=== PATIENT | female | born 1945 | race Caucasian/White ===

== ENCOUNTER → 2016-11-19 | Outpatient (CLI) | payer OTHER ==
[2016-11-19 16:56] LABS: BASO % 0.3 %; BASO ABS # 0.02 K/uL (0-0.2); COMPLETE YES; EOS % 3.3 %; HEMATOCRIT 39.6 % (37-47); IG% 0.3 %; LYMPH % 16.7 %; LYMPH ABS # 0.96 K/uL (1.2-3.4); MEAN CELL VOLUME 89.2 fL (80-100); MEAN CORPUSCULAR HGB CONC 33.6 g/dl (32-36); MEAN PLATELET VOLUME 11.2 fL (7.4-10.4); MONO % 7.1 %; NEUT % 72.3 %; PLATELET COUNT 251 K/uL (130-400); RED BLOOD COUNT 4.44 M/uL (4.2-5.4); WHITE BLOOD COUNT 5.74 K/uL (4.8-10.8)
[2016-11-19 17:17] LABS: BLOOD UREA NITROGEN 18 mg/dl (7-18); BUN/CREATININE RATIO 21.3 (10-20); CARBON DIOXIDE 25 mmol/L (21-32); CHLORIDE 109 mmol/L (98-107); CHOLESTEROL 194 mg/dl (0-200); CHOLESTEROL/HDL RATIO 2.7; CREATININE 0.85 mg/dl (0.60-1.20); GLUCOSE 92 mg/dl (70-99); HDL CHOLESTEROL 72 mg/dl; MAGNESIUM 2.3 mg/dl (1.8-2.4); POTASSIUM 3.8 mmol/L (3.5-5.1); SODIUM 142 mmol/L (136-145)
[2016-11-19 17:24] LABS: FERRITIN 76.4 ng/ml (8.0-388.0); LDL CHOLESTEROL CALCULATED 103 mg/dl; TOTAL IRON BINDING CAPACITY 308 mcg/dl (250-450); TRIGLYCERIDES 97 mg/dl (0-150); VERY LOW DENSITY LIPOPROT CALC 19 mg/dl
== END | disposition home or self-care (01) ==
LOC: C.LABBC 14:20
PROVIDERS: ATTEND Family Medicine
DX: Z00.00 Encounter for general adult medical examination without abnormal findings (principal); R53.82 Chronic fatigue, unspecified; G25.81 Restless legs syndrome; G43.109 Migraine with aura, not intractable, without status migrainosus; E03.9 Hypothyroidism, unspecified; M81.0 Age-related osteoporosis without current pathological fracture

== ENCOUNTER → 2017-02-02 | Outpatient (CLI) | payer OTHER ==
[2017-02-02 16:25] LABS: THYROID STIMULATING HORMONE 6.55 uIu/ml (0.300-4.500)
[2017-02-04 15:10] LABS: MICROSOMAL AB 2 IU/ML (<9)
== END | disposition home or self-care (01) ==
LOC: C.LAB1850 14:03
PROVIDERS: ATTEND Internal Medicine Endocrinology, Diabetes & Metabolism
DX: E03.9 Hypothyroidism, unspecified (principal)

== ENCOUNTER → 2017-05-20 | Outpatient (CLI) | payer OTHER ==
[2017-05-20 17:11] LABS: THYROID STIMULATING HORMONE 4.84 uIu/ml (0.300-4.500)
== END | disposition home or self-care (01) ==
LOC: C.LABBC 15:12
PROVIDERS: ATTEND Internal Medicine Endocrinology, Diabetes & Metabolism
DX: E03.9 Hypothyroidism, unspecified (principal)

== ENCOUNTER → 2017-10-01 | Outpatient (CLI) | payer OTHER | END | disposition home or self-care (01) | LOC: C.LAB1850 15:21 | PROVIDERS: ATTEND Physician Assistant Medical | DX: J30.9 Allergic rhinitis, unspecified (principal) ==

== ENCOUNTER → 2018-03-18 | Outpatient (CLI) | payer OTHER ==
[2018-03-18 15:38] LABS: BASO ABS # 0.04 K/uL (0-0.2); EOS % 4.3 %; EOS ABS # 0.17 K/uL (0-0.5); HEMATOCRIT 39.8 % (37-47); HEMOGLOBIN 13.2 g/dL (12.0-16.0); LYMPH % 20.4 %; LYMPH ABS # 0.81 K/uL (1.2-3.4); MEAN CELL VOLUME 91.7 fL (80-100); MEAN CORPUSCULAR HEMOGLOBIN 30.4 pg (25-34); MEAN CORPUSCULAR HGB CONC 33.2 g/dl (32-36); MEAN PLATELET VOLUME 10.6 fL (7.4-10.4); MONO % 9.3 %; MONO ABS # 0.37 K/uL (0.11-0.59); NEUT ABS # 2.58 K/uL (1.4-6.5); PLATELET COUNT 224 K/uL (130-400); RED CELL DISTRIBUTION WIDTH CV 13.7 % (11.5-14.5); RED CELL DISTRIBUTION WIDTH SD 45.9 fL (36.4-46.3); WHITE BLOOD COUNT 3.97 K/uL (4.8-10.8)
[2018-03-18 16:06] LABS: ALBUMIN 4.1 gm/dl (3.4-5.0); ALKALINE PHOSPHATASE 88 U/L (45-117); ALT/SGPT 22 U/L (12-78); AST/SGOT 17 U/L (15-37); BLOOD UREA NITROGEN 18 mg/dl (7-18); CALCIUM 8.9 mg/dl (8.5-10.1); CARBON DIOXIDE 28 mmol/L (21-32); CREATININE 0.79 mg/dl (0.60-1.20); GLUCOSE 87 mg/dl (70-99); SODIUM 139 mmol/L (136-145); TOTAL PROTEIN 7.3 gm/dl (6.4-8.2)
== END | disposition home or self-care (01) ==
LOC: C.LAB1850 14:49
PROVIDERS: ATTEND Nurse Practitioner Adult Health
DX: E03.9 Hypothyroidism, unspecified (principal); R53.83 Other fatigue; G47.00 Insomnia, unspecified; Z11.59 Encounter for screening for other viral diseases; M79.7 Fibromyalgia

== ENCOUNTER → 2018-05-13 | Outpatient (CLI) | payer OTHER | END | disposition home or self-care (01) | LOC: C.MAMM 14:58 | PROVIDERS: ATTEND Internal Medicine | DX: M81.0 Age-related osteoporosis without current pathological fracture (principal); M85.88 Other specified disorders of bone density and structure, other site ==

== ENCOUNTER 2023-09-10 20:42 | Inpatient (IN) ==
[2023-09-10] MEDS ORDERED: SODIUM CHLORIDE 0.9% 500 ML IV SCH (21:45)
[2023-09-10 22:32] LABS: Basophils # (auto) 0.03 K/uL (0.00-0.20); Basophils % (auto) 0.5 %; Eosinophils # (auto) 0.04 K/uL (0.00-0.50); Eosinophils % (auto) 0.7 %; Hematocrit (blood only) 38.3 % (37.0-47.0); Hemoglobin 12.7 g/dl (12.0-16.0); Lymphocytes # (auto) 1.09 K/uL (1.20-3.40); Lymphocytes % (auto) 18.7 %; Mean Corpuscular Hemoglobin 29.7 pg (25.0-34.0); Mean Corpuscular Hgb Conc 33.2 g/dL (32.0-36.0); Mean Corpuscular Volume 89.5 fL (80.0-100.0); Mean Platelet Volume 11.7 fL (9.4-12.4); Monocytes # (auto) 0.37 K/uL (0.11-0.59); Monocytes % (auto) 6.3 %; Neutrophils % (auto) 73.8 %; Platelet Count 206 K/uL (130-400); RDW Coefficient of Variation 13.2 % (11.5-14.5); Red Blood Count 4.28 M/uL (4.20-5.40); White Blood Count 5.83 K/ul (4.8-10.8)
[2023-09-10 22:49] LABS: Albumin Level 4.9 gm/dl (3.4-5.0); BUN Creatinine Ratio 22.5 (10-20); Bilirubin,Total 2.5 mg/dl (0.2-1.0); Calcium 10.1 mg/dl (8.6-10.3); Creatinine Clr Calc Pharmacy 49.4 ml/min; Est GFR (African American) 81.8 ml/min; Est GFR (Non-African American) 70.6 ml/min; Globulin 2.5 gm/dl (2.5-4.0); Magnesium 2.3 mg/dl (1.7-2.4); Potassium 3.6 mmol/L (3.5-5.1); Total Protein 7.4 gm/dl (6.0-8.3)
[2023-09-10 22:55] LABS: Troponin I High Sensitivity 4.8 pg/ml (0-14)
[2023-09-10 23:04] LABS: Thyroid Stimulating Hormone 6.659 uIu/ml (0.300-4.500)
[2023-09-10 23:39] LABS: T4 Free Thyroxine 0.98 ng/dl (0.61-1.60)
[2023-09-10 23:53] LABS: Appearance Urine Clear (Clear); Bacteria Urine Automated 2+ (Negative); Bilirubin Urine Negative (Negative); Blood Urine 2+ (Negative); Color Urine Yellow; Glucose Urine UA Negative (Negative); Ketones Urine 2+ (Negative); Leukocyte Esterase Urine Trace (Negative); Nitrite Urine Positive (Negative); Protein Urine Negative (Negative); RBC Urine Automated 0-4 /hpf (0-4); Specific Gravity Urine 1.017 (1.000-1.030); Urobilinogen Urine Negative (Negative); pH Urine 5.5 (4.5-7.5)
[2023-09-11] MEDS ORDERED: cephALEXin 250 MG CAP PO ONE (00:11)
--- NOTE | 2023-09-11 00:43 | Emergency Department Note ---
Impression & Plan Acute alteration in mental status, Acute UTI ED Provider Note CHIEF COMPLAINT: Altered mental status HISTORY OF PRESENT ILLNESS: This 77-year-old female patient past medical history of migraine, gait unsteadiness, UTI presents to the emergency department after being found in the parking lot of her apartment complex, confused. Per nursing report, the patient is living in verbal conditions, hoarding. The office of aging is apparently involved. The patient has no complaints at this time. She states she has been eating and drinking. She is unable to answer questions regarding year and age. She seems to be unable to answer questions about the details of her arrival but does know that she was in an ambulance. Much of the history is obtained per nursing and EMS report. REVIEW OF SYSTEMS: Unreliable for review of systems secondary to the patient's mental status ALLERGIES: see below MEDICATIONS: see below PMH: see below SOCIAL HISTORY: see below DDx: Intracranial hemorrhage, intracranial mass, seizure activity, dementia, UTI, metabolic abnormality, dehydration among others. PHYSICAL EXAM: Vital signs reviewed. General: Well-appearing 77-year-old female, lying in bed on her right side, in no significant distress. HEENT: No scleral icterus, PERRLA, neck supple. Moist mucous membranes Cardiovascular: Regular rate and rhythm, no extra sounds. Pulmonary: Clear to auscultation bilaterally, normal work of breathing. Abdomen: Soft, nontender, nondistended, positive bowel sounds. Musculoskeletal: Atraumatic, no peripheral edema. Neurologic: Patient awake alert and confused to date and age, speech is clear Skin: Warm, dry, no rash EXTERNAL medical records reviewed: PCP note dated 12/04/2021 for general diagnoses, medication management. EMERGENCY DEPARTMENT COURSE/MDM: This patient was evaluated and appeared to be in no distress. Physical examination is consistent with altered mentation as she is pleasantly confused. IV access was obtained and laboratory work was drawn. Head CT was performed and reveals no evidence of acute intracranial process. EKG reveals no evidence of acute ischemia or dysrhythmia, chest x-ray is clear. Laboratory work is fairly reassuring however the UA is indicative of infection. This will be sent for culture. Patient was given Keflex 500 mg by mouth. She was gently hydrated with normal saline solution and due to the altered mentation, UTI, patient has been discussed with hospitalist service for further management. MONITORING: An order for cardiac monitoring was placed and the patient is noted to be in a normal sinus rhythm at 86 beats per minute. RADIOLOGY: Head CT to my interpretation reveals no evidence of acute intracranial abnormality. Otherwise defer to radiology. Chest x-ray to my interpretation reveals no evidence of acute focal lung consolidation or failure, otherwise defer to radiology's over read. EKG: To my interpretation reveals a normal sinus rhythm [address] segments. QTc of 418. No PVC, no PAC. DISPOSITION: Admission Past Med/Surg History Medical History Abnormal EKG History of allergy History of malignant neoplasm of colon Multiple chemical sensitivity syndrome Surgical History S/P tonsillectomy Family History Mother Colon cancer Sister Alzheimer disease Uncle Cardiac disorder Aunt Breast cancer Colon cancer Denies family history of Ovarian cancer Prostate cancer Myocardial infarction Social History Smoking Status: Unknown if ever smoked Hx Alcohol Use: No Hx Substance Use: No Preferred Language: Malawian Communication Ability: Effective Visual Impairment: No Limitations Hearing Ability: Normal [place] Required: No Beliefs That Will Affect Care: None marital status: Single Current Living Situation: Alone current occupational status: retired Feels Safe at Home: Yes Childhood Exposure to Second-Hand Smoke: No Dental Care, Regularly: No Physical Activity Frequency: Daily Seatbelt Use: always Sunscreen Use: No Assistive Devices: None Allergies Allergies Allergy/AdvReac Type Severity Reaction Status Date / Time Sulfa (Sulfonamide Allergy Nausea Verified 12/04/21 14:52 Antibiotics) aspirin AdvReac ANGIOEDEMA Verified 12/04/21 14:52 lamotrigine [From Lamictal] AdvReac Verified 12/04/21 14:52 latex AdvReac red sores Verified 12/04/21 14:52 nickel AdvReac rash Verified 12/04/21 14:52 Home Meds Previous Rx's Medication Instructions Recorded amoxicillin 875 mg tablet 875 mg PO BID #10 tabs 09/14/23 Results & Data (ED) Vital Signs Vital Signs - 24 hr 09/10/23 20:45 09/10/23 21:14 09/10/23 21:37 Temperature 36.6 C Temperature Source Oral Pulse Rate 83 86 Pulse Rate [Apical] Respiratory Rate 20 Respiratory Effort / Characteristics Non-Labored Spontaneous Respiratory Depth Normal Blood Pressure 157/82 H Blood Pressure [Left Arm] Blood Pressure Mean 107 Blood Pressure Mean [Left Arm] Pulse Oximetry 99 Oxygen Delivery Method Room Air Room Air Sepsis Recent Fever Within 48 Hours No Sepsis New/Unexplained Change in Mental Status No Sepsis Action Taken by Nursing No Action Required 09/10/23 21:37 09/10/23 23:00 Temperature Temperature Source Pulse Rate Pulse Rate [Apical] 82 Respiratory Rate 18 Respiratory Effort / Characteristics Respiratory Depth Blood Pressure Blood Pressure [Left Arm] 141/88 H Blood Pressure Mean Blood Pressure Mean [Left Arm] 105 Pulse Oximetry 98 99 Oxygen Delivery Method Room Air Room Air Sepsis Recent Fever Within 48 Hours Sepsis New/Unexplained Change in Mental Status Sepsis Action Taken by [facility] Medications Current Medication List: was personally reviewed by me Laboratory Data Attestation: I reviewed the patient's lab results. 09/14/23 07:03 09/14/23 07:03 Lab Results 09/10/23 09/10/23 Range/Units 22:15 23:29 WBC 5.83 (4.8-10.8) K/ul RBC 4.28 (4.20-5.40) M/uL Hgb 12.7 (12.0-16.0) g/dl Hct 38.3 (37.0-47.0) % MCV 89.5 (80.0-100.0) fL MCH 29.7 (25.0-34.0) pg MCHC 33.2 (32.0-36.0) g/dL RDW Std Deviation 43.0 (36.4-46.3) fL RDW Coeff of Catherine 13.2 (11.5-14.5) % Plt Count 206 (130-400) K/uL MPV 11.7 (9.4-12.4) fL Immature Gran % (Auto) 0.0 % Neut % (Auto) 73.8 % Lymph % (Auto) 18.7 % Converse % (Auto) 6.3 % Eos % (Auto) 0.7 % Baso % (Auto) 0.5 % Neut # (Auto) 4.30 (1.40-6.50) K/uL Lymph # (Auto) 1.09 L (1.20-3.40) K/uL Converse # (Auto) 0.37 (0.11-0.59) K/uL Eos # (Auto) 0.04 (0.00-0.50) K/uL Baso # (Auto) 0.03 (0.00-0.20) K/uL Immature Gran # (Auto) 0.00 L (0.01-0.20) K/uL Sodium 141 (136-145) mmol/L Potassium 3.6 (3.5-5.1) mmol/L Chloride 108 H (98-107) mmol/L Carbon Dioxide 23 (21-32) mmol/L Anion Gap 10 (3-11) BUN 18 (6-23) mg/dl Creatinine 0.80 (0.6-1.2) mg/dl Est Cr Clr Drug Dosing 49.4 ml/min Est GFR ( Amer) 81.8 ml/min Est GFR (Non-Af Amer) 70.6 ml/min BUN/Creatinine Ratio 22.5 H (10-20) Glucose 70 (70-99(Fasting)) mg/dl Calcium 10.1 (8.6-10.3) mg/dl Magnesium 2.3 (1.7-2.4) mg/dl Total Bilirubin 2.5 H (0.2-1.0) mg/dl Direct Bilirubin 0.4 H (0-0.2) mg/dl AST 18 (13-39) U/L ALT 15 (7-52) U/L Alkaline Phosphatase 58 (34-104) U/L Troponin I High Sens 4.8 (0-14) pg/ml Total Protein 7.4 (6.0-8.3) gm/dl Albumin 4.9 (3.4-5.0) gm/dl Globulin 2.5 (2.5-4.0) gm/dl Albumin/Globulin Ratio 2.0 (0.9-2) TSH 6.659 H (0.300-4.500) uIu/ml Free T4 0.98 (0.61-1.60) ng/dl Urine Color Yellow Urine Appearance Clear (Clear) Urine pH 5.5 (4.5-7.5) Ur Specific [place] 1.017 (1.000-1.030) Urine Protein Negative (Negative) Urine Glucose (UA) Negative (Negative) Urine Ketones 2+ H (Negative) Urine Blood 2+ H (Negative) Urine Nitrite Positive A (Negative) Urine Bilirubin Negative (Negative) Urine Urobilinogen Negative (Negative) Ur Leukocyte Esterase Trace H (Negative) Urine WBC (Auto) 5-10 H (0-5) /hpf Urine RBC (Auto) 0-4 (0-4) /hpf U Hyaline Cast (Auto) 1-5 (0-5) /lpf U Epithel Cells (Auto) 10-20 H (0-5) /lpf Urine Bacteria (Auto) 2+ H (Negative) SARS-CoV-2, RNA, NAAT NEGATIVE (NEGATIVE) Administered Medications Discontinued Medications Amoxicillin (Amoxicillin 875 Mg Tab) 875 mg PO BID [facility]; Protocol Stop: 09/19/23 11:59 Last Admin: 09/14/23 12:44 Dose: 875 mg Documented By: CLIFTON Cephalexin HCl (Cephalexin 250 Mg Cap) 500 mg PO NOW ONE Stop: 09/11/23 00:12 Last Admin: 09/11/23 00:17 Dose: 500 mg Documented By: RAUL Cyanocobalamin (Cyanocobalamin (B-12) 100 Mcg Tablet) 100 mcg PO QAM [facility] Stop: 10/11/23 08:59 Last Admin: 09/14/23 08:16 Dose: 100 mcg Documented By: Admin: 09/13/23 08:17 Dose: 100 mcg Documented By: Admin: 09/12/23 08:18 Dose: 100 mcg Documented By: Admin: 09/11/23 08:47 Dose: Not Given Documented By: CAMPOS Dextrose (Dextrose 50% 50 Ml Syringe) 25 - 50 ml IV UD PRN; Protocol PRN Reason: Hypoglycemia Protocol Stop: 10/11/23 08:29 Last Admin: 09/11/23 08:40 Dose: 25 ml Documented By: CAMPOS Enoxaparin Sodium (Enoxaparin Inj 40 Mg/0.4 Ml Syr) [facility] Stop: 10/11/23 08:59 Last Admin: 09/14/23 08:16 Dose: 40 mg Documented By: Admin: 09/13/23 08:16 Dose: Not Given Documented By: Admin: 09/12/23 08:18 Dose: 40 mg Documented By: Admin: 09/11/23 08:44 Dose: 40 mg Documented By: CAMPOS Sodium Chloride (Nss) 500 mls @ 999 mls/hr IV .Q31M SRAVANI Stop: 09/10/23 22:15 Last Infusion: 09/10/23 23:32 Dose: Infused Documented By: Admin: 09/10/23 22:51 Dose: 999 mls/hr Documented By: RAUL Ceftriaxone Sodium (Rocephin) 2,000 mg in 50 mls @ 100 mls/hr IV NOW STA Stop: 09/11/23 02:20 Last Admin: 09/11/23 02:59 Dose: Not Given Documented By: RAUL Lactated Ringer's (Lr) 1,000 mls @ 125 mls/hr IV .Q8H SRAVANI Stop: 09/11/23 11:59 Last Infusion: 09/11/23 12:29 Dose: Infused Documented By: Admin: 09/11/23 04:15 Dose: 125 mls/hr Documented By: RIGOBERTO Influenza Virus Vaccine (Influenza Vaccine High-Dose (Hd-Iiv4) Pf 65+ 0.7ml Syr) 0.7 ml IM .ONCE ONE Stop: 09/11/23 09:01 Last Admin: 09/12/23 07:08 Dose: Not Given Documented By: CLIFTON Ketorolac Tromethamine (Ketorolac Tromethamine 15 Mg/Ml Vial) 15 mg IV NOW ONE Stop: 09/12/23 05:56 Last Admin: 09/12/23 05:58 Dose: 15 mg Documented By: EJ Magnesium Oxide (Magnesium Oxide 400 Mg Tab) 400 mg PO BID SRAVANI Stop: 10/11/23 10:59 Last Admin: 09/14/23 08:16 Dose: 400 mg Documented By: Admin: 09/13/23 19:26 Dose: 400 mg Documented By: Admin: 09/13/23 08:17 Dose: 400 mg Documented By: Admin: 09/12/23 19:32 Dose: 400 mg Documented By: Admin: 09/12/23 08:17 Dose: 400 mg Documented By: Admin: 09/11/23 20:22 Dose: 400 mg Documented By: Admin: 09/11/23 11:25 Dose: 400 mg Documented By: CAMPOS Ondansetron HCl (Ondansetron Inj 2 Mg/Ml 2 Ml Vial) 4 mg IV Q6H PRN PRN Reason: Nausea And Vomiting Stop: 10/12/23 06:08 Last Admin: 09/12/23 06:23 Dose: 4 mg Documented By: EJ Pneumococcal 20-Valent Conj Vacc (Pneumococcal Vaccine (Pcv20) 20-Petrona Conj-Dip Crm/Pf 0.5 Ml Syr) 0.5 ml IM .ONCE ONE Stop: 09/11/23 09:01 Last Admin: 09/12/23 07:08 Dose: Not Given Documented By: CLIFTON Thiamine HCl (Thiamine Hcl 50 Mg Tablet) 50 mg PO QAM SRAVANI Stop: 10/11/23 08:59 Last Admin: 09/14/23 08:16 Dose: 50 mg Documented By: Admin: 09/13/23 08:17 Dose: 50 mg Documented By: Admin: 09/12/23 08:18 Dose: 50 mg Documented By: Admin: 09/11/23 08:48 Dose: Not Given Documented By: CAMPOS Imaging Data Radiologist's Impression: Chest X-Ray 09/10/23 21:33 XR chest 1V portable HISTORY: weakness COMPARISON: None. FINDINGS: No pneumothorax. No pleural effusions. No focal lung consolidations to suggest a pneumonia. No evidence for pulmonary edema. The heart is normal in size. No acute fractures identified. Degenerative changes within the right shoulder and old posttraumatic changes within the right humeral neck. IMPRESSION: No acute process. ACT 112: Negative or not required by law. Electronically signed by: Micheal Garcia M.D. 09/11/2023 7:[address] 09/10/23 21:33 Exam(s): CT HEAD Without Contrast EXAM: CT Head Without Intravenous Contrast CLINICAL HISTORY: Reason for exam: confusion. TECHNIQUE: Axial computed tomography images of the head/brain without intravenous contrast. CTDI is 36.43 mGy and DLP is 547.75 mGy-cm. Automated exposure control was utilized for the study. A dose lowering technique was utilized adhering to the principles of ALARA. COMPARISON: Comparison made to prior brain MRI from February 01, 2008. FINDINGS: Brain: Unremarkable. No hemorrhage. No significant white matter disease. No edema. Ventricles: Unremarkable. No ventriculomegaly. Bones/joints: Hyperostosis frontalis interna. No acute fracture. Soft tissues: Unremarkable. Sinuses: Unremarkable as visualized. No acute sinusitis. Mastoid air cells: Unremarkable as visualized. No mastoid effusion. IMPRESSION: No evidence of acute intracranial pathology. Electronically signed by: Julianna Palma MD 09/11/23 01:46 AM Discharge Plan Visit Data Chief Complaint: Altered Mental Status Stated Complaint: WANDERING AROUND, ALTERED ED Provider: Marleny Menjivar Discharge Problem: Acute alteration in mental status, Acute UTI Patient Disposition: Admitted As Inpatient Discharge Instructions Interventions: ED Discharge Assessment Last Done: 09/11/23 03:21
--- NOTE | 2023-09-11 01:47 | CT Scan Report ---
Exam(s): CT HEAD Without Contrast EXAM: CT Head Without Intravenous Contrast CLINICAL HISTORY: Reason for exam: confusion. TECHNIQUE: Axial computed tomography images of the head/brain without intravenous contrast. CTDI is 36.43 mGy and DLP is 547.75 mGy-cm. Automated exposure control was utilized for the study. A dose lowering technique was utilized adhering to the principles of ALARA. COMPARISON: Comparison made to prior brain MRI from February 01, 2008. FINDINGS: Brain: Unremarkable. No hemorrhage. No significant white matter disease. No edema. Ventricles: Unremarkable. No ventriculomegaly. Bones/joints: Hyperostosis frontalis interna. No acute fracture. Soft tissues: Unremarkable. Sinuses: Unremarkable as visualized. No acute sinusitis. Mastoid air cells: Unremarkable as visualized. No mastoid effusion. IMPRESSION: No evidence of acute intracranial pathology. Electronically signed by: Julianna Palma MD 09/11/23 01:46 AM
[2023-09-11] MEDS ORDERED: cefTRIAXone SODIUM 2,000 MG/50 ML BAG IV STA (01:51)
--- NOTE | 2023-09-11 02:01 | History & Physical Report ---
Date of Service September 11, 2023 Assessment & Plan (1) Altered mental status: Plan: 77 F with PMH of hypothyroidism (unmedicated), migraine headaches, chronic pain, fibromyalgia, and UTIs, who presented to hospital after being found outside in confused state. Stable and now admitted to the hospital for acute management of delirium, presumed secondary to urinary tract infection. Altered mental status/UTI -No prior history of delirium, dementia, or AMS. Patient did have a sister (now ) with a history of Alzheimer's disease, according to the chart. Otherwise no family history of neurological disorders. -Urinalysis findings consistent with acute UTI (2+ hematuria, 2+ ketonuria, nitrite positive, trace leukocyte esterase, 2+ bacteriuria). -Electrolytes wnl. WBC, Mg, Ca, glucose, ammonia, alk phos, troponin, Cr, BUN all normal. CXR, CT head both negative for acute pathology. -S/p p.o. cephalexin 500 mg, NS bolus x0.5 L in the ED. * [facility] * Started IV ceftriaxone * Started maintenance IVF (LR@125 mL/h x 1 L) * P.o. thiamine 50 mg, cyanocobalamin 100 mg every morning * Trend improvement in mental status with antibiotic treatment * Recommend contacting the Office of Aging for additional information Elevated total bilirubin -T. bili-2.5 on admission. Last and only other value, obtained in 2018, mildly elevated at 1.2. -Direct bilirubin 0.4. * Trend T. bili on daily LFTs Hypothyroidism -TSH 6.659 on ED labs. Most recent prior value on 04/25/2020 wnl (3.790). -Appears to have been unmedicated, according to last wellness visit note from 12/04/2021 ("appears to be doing well without medication."). -Free T4 of 0.98 today. No evidence of weight loss upon review of prior visit weights (54 kg today; other prior weights between 52-59.5 kg). * Recheck thyroid function test x6-8 weeks. Code: Full code Dispo: Med-Surg FEN/GI: NPO. DVT Prophylaxis: Lovenox 40 mg q24h PT/OT: Yes Consults: None Case Management: Yes (2) UTI (urinary tract infection): (3) Total bilirubin, elevated: (4) Hypothyroidism: History of Present Illness Primary Care Provider: Lou Lopez MD Rita is a 77-year-old woman with a past medical history of hypothyroidism, IBS, fibromyalgia, migraine headaches, allergic rhinitis, chronic fatigue, and UTIs, who presents to the emergency room after being found in a confused state outside her apartment complex in the parking lot. Per nursing report, patient apparently lives as a hoarder, and the Office of Aging is apparently involved. She had no complaints on evaluation by the ED. In the ED, vitals were stable, wnl. Labs revealed an elevated total bilirubin of 2.5, and an elevated TSH-6.659 (free T4 was normal-0.98). WBC count, Hgb, sodium, K+, BUN, Cr, Ca, Mg, AST/ALT, alkaline phosphatase, troponin, and serum glucose were all within normal ranges. Urinalysis, however, showed 2+ ketonuria, 2+ hematuria, positive nitrites, trace leuk est. and 2+ bacteriuria. COVID-19 swab was also negative. CXR was negative for any acute infectious or inflammatory process. CT head was also negative for intracranial pathology. She received a dose of p.o. cephalexin 500 mg and a 0.5 L bolus of NS. Hospitalist service was then consulted for admission. On admission, she remains oriented to only herself and knows her , but is not oriented to date or location. She reports that she was sleeping in bed when she saw other dogs or wolves in her backyard, as well as people napping amongst them in the backyard. She does not remember being found in the parking lot nor does she remember ever going outside. She seems to remember she last had a cookie, but does not know for sure when she last ate. She is unable to answer when asked who the current president is or the last president she can remember ("he has a daughter and 2 boys. He was a [employer]."). She does deny any alcohol consumption ("I never like to drink."). Allergies Allergy/AdvReac Type Severity Reaction Status Date / Time Sulfa (Sulfonamide Allergy Nausea Verified 12/04/21 14:52 Antibiotics) aspirin AdvReac ANGIOEDEMA Verified 12/04/21 14:52 lamotrigine [From Lamictal] AdvReac Verified 12/04/21 14:52 latex AdvReac red sores Verified 12/04/21 14:52 nickel AdvReac rash Verified 12/04/21 14:52 Home Medications Medication Instructions Recorded Confirmed Type Unobtainable 09/10/23 09/10/23 History Past Med/Surg History Medical History Abnormal EKG History of allergy History of malignant neoplasm of colon Multiple chemical sensitivity syndrome Surgical History S/P tonsillectomy Family History Mother Colon cancer Sister Alzheimer disease Uncle Cardiac disorder Aunt Breast cancer Colon cancer Denies family history of Ovarian cancer Prostate cancer Myocardial infarction Social History Smoking Status: Never smoker Hx Alcohol Use: No Hx Substance Use: No Preferred Language: Uzbek Visual Impairment: No Limitations Hearing Ability: Normal marital status: Single Current Living Situation: Alone current occupational status: retired Feels Safe at Home: No Childhood Exposure to Second-Hand Smoke: No Dental Care, Regularly: No Physical Activity Frequency: Daily Seatbelt Use: always Sunscreen Use: No Review of Systems Review of Systems: All systems reviewed & are unremarkable except as noted in HPI & below Physical Exam Physical Exam: General: Calm, but tired appearing elderly woman in no acute distress HEENT: PERRLA. Normal conjunctiva, anicteric sclera. Oropharynx normal. Respiratory: Normal respiratory effort, CTABL. Cardiovascular: RRR without murmurs, gallops, or rubs. No pedal edema. GI: Soft abdomen with normal bowel sounds heard on auscultation. Nontender x4 quadrants Neuro: Alert but oriented to self only. Intact pupillary light reflex bilaterally. No apparent focal motor deficits. Results & Data Results & Data Vital Signs (Past 12 Hours) Vital Signs Temp Pulse Pulse Resp BP BP Pulse Ox 09/11/23 00:49 71 09/10/23 23:00 82 18 141/88 H 99 09/10/23 21:37 98 09/10/23 21:37 09/10/23 21:14 86 09/10/23 20:45 36.6 C 83 20 157/82 H 99 O2 Del Method 09/11/23 00:49 09/10/23 23:00 Room Air 09/10/23 21:37 Room Air 09/10/23 21:37 Room Air 09/10/23 21:14 09/10/23 20:45 Room Air Supervising Physician Co-Signing Physician Notes Patient seen and examined, chart reviewed, case discussed with Dr. Reeves and I agree with the assessment and plan as above. Resident Activity Tracking Resident Involvement: Resident Care Provided Care Provided: Adult Hospital Medicine (1) Altered mental status Altered mental status type: delirium Qualified Code(s): R41.0 - Disorientation, unspecified
[2023-09-11 02:36] LABS: Bilirubin Direct 0.4 mg/dl (0-0.2)
--- NOTE | 2023-09-11 03:22 | Billing Data ---
Date of Service September 11, 2023 Coding Level of Care Code 22984 INT INP/OBS CARE
[2023-09-11] MEDS ORDERED: LACTATED RINGER'S 1,000 ML IV SCH (04:00)
--- NOTE | 2023-09-11 07:39 | XRay Report ---
XR chest 1V portable HISTORY: weakness COMPARISON: None. FINDINGS: No pneumothorax. No pleural effusions. No focal lung consolidations to suggest a pneumonia. No evidence for pulmonary edema. The heart is normal in size. No acute fractures identified. Degener ative changes within the right shoulder and old posttraumatic changes within the right humeral neck. IMPRESSION: No acute process. ACT 112: Negative or not required by law. Electronically signed by: Micheal Garcia M.D. 09/11/2023 7:38 AM
[2023-09-11 07:56] LABS: BUN Creatinine Ratio 21.3 (10-20); Bilirubin Direct 0.3 mg/dl (0-0.2); Bilirubin,Total 2.1 mg/dl (0.2-1.0); Calcium 9.2 mg/dl (8.6-10.3); Creatinine Clr Calc Pharmacy 50.9 ml/min; Est GFR (African American) 88.5 ml/min; Est GFR (Non-African American) 76.3 ml/min; Potassium 3.7 mmol/L (3.5-5.1); Total Protein 5.9 gm/dl (6.0-8.3)
[2023-09-11] MEDS ORDERED: GLUCOSE 10 TAB/TUBE PO PRN (08:30)
[2023-09-11] MEDS ORDERED: DEXTROSE 50% 50 ML SYRINGE IV PRN (08:30)
[2023-09-11] MEDS ORDERED: GLUCAGON FOR INJ 1 MG VIAL SQ PRN (08:30)
[2023-09-11] MEDS ORDERED: GLUCOSE 40% GEL 15 GM TUBE PO PRN (08:30)
[2023-09-11] MEDS ORDERED: CARBOHYDRATES FOR HYPOGLYCEMIA PO PRN (08:30)
[2023-09-11] MEDS: ENOXAPARIN INJ 40 MG/0.4 ML SYR SQ SCH (08:44)
[2023-09-11] MEDS: CYANOCOBALAMIN (B-12) 100 MCG TABLET PO SCH (08:47)
[2023-09-11] MEDS: THIAMINE HCL 50 MG TABLET PO SCH (08:48)
--- NOTE | 2023-09-11 08:58 | Electrocardiogram Report ---
Test Reason : Blood Pressure : / mmHG Vent. Rate : 076 BPM Atrial Rate : 076 BPM P-R Int : 150 ms QRS Dur : 062 ms QT Int : 372 ms P-R-T Axes : 072 031 051 degrees QTc Int : 418 ms Normal sinus rhythm Normal ECG When compared with ECG of 01-MAR-2004 12:15, No significant change was found Confirmed by Israel Tsang ([id number]) on 09/11/2023 8:58:22 AM Referred By: REFERRED SELF Confirmed By:Israel Tsang
[2023-09-11] MEDS ORDERED: INFLUENZA VACCINE HIGH-DOSE (HD-IIV4) PF 65+ 0.7mL SYR IM ONE (09:00)
[2023-09-11] MEDS ORDERED: PNEUMOCOCCAL VACCINE (PCV20) 20-VAL CONJ-DIP CRM/PF 0.5 ML SYR IM ONE (09:00)
[2023-09-11] MEDS ORDERED: ACETAMINOPHEN 325 MG TAB PO PRN (10:49)
[2023-09-11] MEDS: MAGNESIUM OXIDE 400 MG TAB PO SCH ×2 (11:25→20:22)
[2023-09-12] MEDS ORDERED: KETOROLAC TROMETHAMINE 15 MG/ML VIAL IV ONE (05:55)
[2023-09-12] MEDS ORDERED: ONDANSETRON INJ 2 MG/ML 2 ML VIAL IV PRN (06:09)
[2023-09-12 06:11] LABS: Hematocrit (blood only) 38.1 % (37.0-47.0); Hemoglobin 12.4 g/dl (12.0-16.0); Mean Corpuscular Hemoglobin 29.5 pg (25.0-34.0); Mean Corpuscular Hgb Conc 32.5 g/dL (32.0-36.0); Mean Corpuscular Volume 90.7 fL (80.0-100.0); Mean Platelet Volume 11.5 fL (9.4-12.4); Platelet Count 178 K/uL (130-400); RDW Standard Deviation 42.6 fL (36.4-46.3); White Blood Count 4.17 K/ul (4.8-10.8)
[2023-09-12 06:27] LABS: Albumin Level 4.3 gm/dl (3.4-5.0); Bilirubin Direct 0.3 mg/dl (0-0.2); Bilirubin,Total 2.2 mg/dl (0.2-1.0); Calcium 9.6 mg/dl (8.6-10.3); Potassium 3.7 mmol/L (3.5-5.1)
[2023-09-12 06:33] LABS: BUN Creatinine Ratio 19.8 (10-20); Creatinine Clr Calc Pharmacy 44.4 ml/min; Est GFR (Non-African American) 64.7 ml/min; Phosphorus 3.2 mg/dl (2.5-4.9); Total Protein 6.4 gm/dl (6.0-8.3)
[2023-09-12] MEDS: MAGNESIUM OXIDE 400 MG TAB PO SCH ×2 (08:17→19:32)
[2023-09-12] MEDS: CYANOCOBALAMIN (B-12) 100 MCG TABLET PO SCH (08:18)
[2023-09-12] MEDS: ENOXAPARIN INJ 40 MG/0.4 ML SYR SQ SCH (08:18)
[2023-09-12] MEDS: THIAMINE HCL 50 MG TABLET PO SCH (08:18)
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
[2023-09-13 05:56] LABS: Hematocrit (blood only) 35.8 % (37.0-47.0); Mean Corpuscular Hemoglobin 29.7 pg (25.0-34.0); Mean Corpuscular Hgb Conc 33.5 g/dL (32.0-36.0); Mean Corpuscular Volume 88.6 fL (80.0-100.0); Mean Platelet Volume 11.6 fL (9.4-12.4); Platelet Count 182 K/uL (130-400); RDW Coefficient of Variation 13.2 % (11.5-14.5); RDW Standard Deviation 42.6 fL (36.4-46.3); Red Blood Count 4.04 M/uL (4.20-5.40); White Blood Count 4.42 K/ul (4.8-10.8)
[2023-09-13 06:11] LABS: Albumin Level 4.1 gm/dl (3.4-5.0); BUN Creatinine Ratio 27.4 (10-20); Bilirubin Direct 0.2 mg/dl (0-0.2); Bilirubin,Total 1.4 mg/dl (0.2-1.0); Calcium 9.6 mg/dl (8.6-10.3); Creatinine Clr Calc Pharmacy 40.2 ml/min; Est GFR (African American) 66.5 ml/min; Est GFR (Non-African American) 57.4 ml/min; Phosphorus 3.5 mg/dl (2.5-4.9); Potassium 4.3 mmol/L (3.5-5.1); Total Protein 6.1 gm/dl (6.0-8.3)
[2023-09-13] MEDS: ENOXAPARIN INJ 40 MG/0.4 ML SYR SQ SCH (08:16)
[2023-09-13] MEDS: MAGNESIUM OXIDE 400 MG TAB PO SCH ×2 (08:17→19:26)
[2023-09-13] MEDS: THIAMINE HCL 50 MG TABLET PO SCH (08:17)
[2023-09-13] MEDS: CYANOCOBALAMIN (B-12) 100 MCG TABLET PO SCH (08:17)
--- NOTE | 2023-09-13 15:08 | Hospitalist Progress Note ---
Date of Service September 13, 2023 Assessment & Plan (1) Altered mental status: Plan: 77 F with PMH of hypothyroidism (unmedicated), migraine headaches, chronic pain, fibromyalgia, and UTIs, who presented to hospital after being found outside in confused state. Stable and now admitted to the hospital for acute management of delirium, presumed secondary to urinary tract infection. Altered mental status/UTI -No prior history of delirium, dementia, or AMS. Patient did have a sister (now ) with a history of Alzheimer's disease, according to the chart. Otherwise no family history of neurological disorders. -Urinalysis findings consistent with acute UTI (2+ hematuria, 2+ ketonuria, nitrite positive, trace leukocyte esterase, 2+ bacteriuria). -Electrolytes wnl. WBC, Mg, Ca, glucose, ammonia, alk phos, troponin, Cr, BUN all normal. CXR, CT head both negative for acute pathology. -S/p p.o. cephalexin 500 mg, NS bolus x0.5 L in the ED. * Admit to [facility] * Started IV ceftriaxone * Started maintenance IVF (LR@125 mL/h x 1 L) * P.o. thiamine 50 mg, cyanocobalamin 100 mg every morning * Patient appears to be improving in regards to her mentation. * There may be a component of dementia * However, Mini mental State Examination completed on 09/13: scored 26/30 * Did not answer day of the week, could not remember 1 out the 3 words, could not draw the diagram, did not know the name of the hospital. Elevated total bilirubin -T. bili-2.5 on admission. Last and only other value, obtained in 2018, mildly elevated at 1.2. -Direct bilirubin 0.4. * Trend T. bili on daily LFTs Hypothyroidism -Free T4 appears at goal. (2) UTI (urinary tract infection): (3) Total bilirubin, elevated: (4) Hypothyroidism: Admission and Anticipated Discharge Date Admission Date: September 11, 2023 Subjective 77 y female reports no new Symptoms Review of Systems Review of Systems: All systems reviewed & are unremarkable except as noted in HPI & below Physical Exam Physical Exam: General: Calm and in NAD/ HEENT: PERRLA. Normal conjunctiva, anicteric sclera. Oropharynx normal. Respiratory: Normal respiratory effort, CTABL. Cardiovascular: RRR without murmurs, gallops, or rubs. No pedal edema. GI: Soft abdomen with normal bowel sounds heard on auscultation. Nontender x4 quadrants Neuro: Alert but oriented to self, place. Results & Data Results & Data Vital Signs (Past 12 Hours) Vital Signs Temp Pulse Resp BP Pulse Ox O2 Del Method 09/13/23 14:46 36.9 C 75 18 112/74 98 Room Air 09/13/23 07:43 36.4 C L 57 L 18 112/73 98 Room Air PG Care Time/CCT Total # of Minutes Spent Total Time Spent with Patient: Total time spent is greater than 50% in coordination of care (as documented) at patient's floor/unit and/or counseling patient: Coding Level of Care Code 87242 SUB INP/OBS CARE 235MIN Diagnoses Delirium R41.0 Altered mental status type: delirium UTI (urinary tract infection) N39.0 Total bilirubin, elevated R17 Hypothyroidism E03.9 (1) Altered mental status Altered mental status type: delirium Qualified Code(s): R41.0 - Disorientation, unspecified
[2023-09-14 07:26] LABS: Hematocrit (blood only) 36.1 % (37.0-47.0); Mean Corpuscular Hemoglobin 29.9 pg (25.0-34.0); Mean Corpuscular Hgb Conc 33.2 g/dL (32.0-36.0); Mean Corpuscular Volume 89.8 fL (80.0-100.0); Mean Platelet Volume 11.8 fL (9.4-12.4); Platelet Count 190 K/uL (130-400); RDW Coefficient of Variation 13.1 % (11.5-14.5); RDW Standard Deviation 43.3 fL (36.4-46.3); Red Blood Count 4.02 M/uL (4.20-5.40); White Blood Count 4.49 K/ul (4.8-10.8)
[2023-09-14 07:41] VITALS: RESP 20
[2023-09-14 08:02] LABS: Phosphorus 3.7 mg/dl (2.5-4.9)
[2023-09-14] MEDS: THIAMINE HCL 50 MG TABLET PO SCH (08:16)
[2023-09-14] MEDS: CYANOCOBALAMIN (B-12) 100 MCG TABLET PO SCH (08:16)
[2023-09-14] MEDS: MAGNESIUM OXIDE 400 MG TAB PO SCH (08:16)
[2023-09-14] MEDS: ENOXAPARIN INJ 40 MG/0.4 ML SYR SQ SCH (08:16)
[2023-09-14 09:54] LABS: Albumin Level 4.3 gm/dl (3.4-5.0); Bilirubin Direct 0.2 mg/dl (0-0.2); Bilirubin,Total 1.3 mg/dl (0.2-1.0); Calcium 9.6 mg/dl (8.6-10.3); Potassium 3.9 mmol/L (3.5-5.1)
[2023-09-14 09:59] LABS: BUN Creatinine Ratio 22.1 (10-20); Creatinine Clr Calc Pharmacy 49.6 ml/min; Est GFR (African American) 85.7 ml/min; Total Protein 6.3 gm/dl (6.0-8.3)
[2023-09-14 11:20] VITALS: PULSE 78; TEMP 97.7; O2SAT 99
[2023-09-14] MEDS ORDERED: AMOXICILLIN 875 MG TAB PO SCH (12:00)
[2023-09-14 14:04] LABS: Lyme Ab IgG w/WB Rflx Negative (Negative)
[2023-09-14 14:05] LABS: Lyme Ab IgM w/WB Rflx Negative (Negative)
[2023-09-14 14:06] VITALS: BP 113/84
--- NOTE | 2023-09-18 09:38 | Discharge Summary ---
Date of Service September 14, 2023 Admission HPI Per Admitting Provider Rita is a 77-year-old woman with a past medical history of hypothyroidism, IBS, fibromyalgia, migraine headaches, allergic rhinitis, chronic fatigue, and UTIs, who presents to the emergency room after being found in a confused state outside her apartment complex in the parking lot. Per nursing report, patient apparently lives as a hoarder, and the Office of Aging is apparently involved. She had no complaints on evaluation by the ED. In the ED, vitals were stable, wnl. Labs revealed an elevated total bilirubin of 2.5, and an elevated TSH-6.659 (free T4 was normal-0.98). WBC count, Hgb, sodium, K+, BUN, Cr, Ca, Mg, AST/ALT, alkaline phosphatase, troponin, and serum glucose were all within normal ranges. Urinalysis, however, showed 2+ ketonuria, 2+ hematuria, positive nitrites, trace leuk est. and 2+ bacteriuria. COVID-19 swab was also negative. CXR was negative for any acute infectious or inflammatory process. CT head was also negative for intracranial pathology. She received a dose of p.o. cephalexin 500 mg and a 0.5 L bolus of NS. Hospitalist service was then consulted for admission. On admission, she remains oriented to only herself and knows her , but is not oriented to date or location. She reports that she was sleeping in bed when she saw other dogs or wolves in her backyard, as well as people napping amongst them in the backyard. She does not remember being found in the parking lot nor does she remember ever going outside. She seems to remember she last had a cookie, but does not know for sure when she last ate. She is unable to answer when asked who the current president is or the last president she can remember ("he has a daughter and 2 boys. He was a [employer]."). She does deny any alcohol consumption ("I never like to drink."). Principal Diagnosis acute mental status Discharge Exam General: Calm and in NAD HEENT: PERRLA. Normal conjunctiva, anicteric sclera. Oropharynx normal. Respiratory: Normal respiratory effort, CTABL. Cardiovascular: RRR without murmurs, gallops, or rubs. No pedal edema. GI: Soft abdomen with normal bowel sounds heard on auscultation. Nontender x4 quadrants Neuro: Alert, oriented to self, place, time. Discharge Data Allergies Allergy/AdvReac Type Severity Reaction Status Date / Time Sulfa (Sulfonamide Allergy Nausea Verified 12/04/21 14:52 Antibiotics) aspirin AdvReac ANGIOEDEMA Verified 12/04/21 14:52 lamotrigine [From Lamictal] AdvReac Verified 12/04/21 14:52 latex AdvReac red sores Verified 12/04/21 14:52 nickel AdvReac rash Verified 12/04/21 14:52 Consultations 09/11/23 00:41 ED Decision to Admit Stat Ordered Studies 09/10/23 21:33 CT head/brain wo con Stat Hospital Course (1) Altered mental status: 77 F with PMH of hypothyroidism (unmedicated), migraine headaches, chronic pain, fibromyalgia, and UTIs, who presented to hospital after being found outside in confused state. Stable and now admitted to the hospital for acute management of delirium, presumed secondary to urinary tract infection. Altered mental status/UTI -No prior history of delirium, dementia, or AMS. Patient did have a sister (now ) with a history of Alzheimer's disease, according to the chart. Otherwise no family history of neurological disorders. -Urinalysis findings consistent with acute UTI (2+ hematuria, 2+ ketonuria, nitrite positive, trace leukocyte esterase, 2+ bacteriuria). -Electrolytes wnl. WBC, Mg, Ca, glucose, ammonia, alk phos, troponin, Cr, BUN all normal. CXR, CT head both negative for acute pathology. -S/p p.o. cephalexin 500 mg, NS bolus x0.5 L in the ED. * Admit to [facility] * Started IV ceftriaxone, on admission, but not continued. * Patient appears to be improving in regards to her mentation. * There may be a component of dementia * However, Mini mental State Examination completed on 09/13: scored 26/30 * Did not answer day of the week, could not remember 1 out the 3 words, could not draw the diagram, did not know the name of the hospital. * Patient will be discharged home with home health, office of aging has also been contacted. * A cousin will also be visiting patient, * Patient will be discharged on oral antibiotics for possible UTI vs asymptomatic bacteruria. Elevated total bilirubin -T. bili-2.5 on admission. Last and only other value, obtained in 2018, mildly elevated at 1.2. -Direct bilirubin 0.4. * Trend T. bili on daily LFTs Hypothyroidism -Free T4 appears at goal. (2) UTI (urinary tract infection): (3) Total bilirubin, elevated: (4) Hypothyroidism: Total Time Total Time Spent Total Time Spent (In Minutes): 32 Discharge Plan Discharge Items Patient Disposition: Home - Home Health Services Reason For Visit: ALTERED MENTAL STATUS Discharge Diagnosis: Confusion/ possble early dementia Activity: Resume your previous activity Non-emergency contact: Primary Care Provider Call non-emergency contact if: you have any medication questions Follow-up/Referrals: Lou Lopez MD [Primary Care Provider] - 09/22/23 11:30 am (with saumya the PA) Diet: Regular Addtl Attending Provider Instructions: Good afternoon Mrs. Yañez, It was a pleasure taking care of you as you are a very pleasant and cheerful young lady. I have some concerns regarding your memory but I would consdier this early dementia. However first we need to treat things that could affect you usch as your Urinary tract infection. Will recommend 5 days of oral antibiotics. Home First dose will be tonight. We sent your script to [facility]. [facility], [address] [place] [address] If your memory does not improve after treating your urine infection, we could consider starting aricept. This is a medication that can help with memory. Will also recommend we check an MRI of your brain as an outpatient. We will have you followup with Neurology and your PCP within 2-4 weeks. I hope you have a Happy Thanksgiving. Kindest regards, Rayo Marr MD Pending Studies at Discharge: No Stand-Alone Forms: [facility], Smoking Cessation Medications and DC Order Prescriptions: New amoxicillin 875 mg tablet 875 mg PO BID Qty: 10 0RF Discharge Orders: Discharge Order (Routine); Ordered 09/14/23 Ordered By: Rayo Marr Admission Data Admit Date/Time: 09/11/23 01:22 Attending Provider: Rayo Mrar Admit Provider: Ingrid Reeves Primary Care Provider: Lou Lopez V. Other Providers: Ana Luisa Villar Other Interventions: Discharge Summary Assessment (RN) Last Done: 09/14/23 14:03 Coding Level of Care Code 97388 INP/OBS DISCH >30 MIN Diagnoses Delirium R41.0 Altered mental status type: delirium UTI (urinary tract infection) N39.0 Total bilirubin, elevated R17 Hypothyroidism E03.9
== END 2023-09-14 15:06 | disposition home health service (06) | DRG 689 ==
LOC: ED 20:42 → SUATTDRO 09-11 01:22 → 2S 09-11 01:22 → 3N 09-11 16:26
DX: E86.0 Dehydration; Z91.040 Latex allergy status; G93.41 Metabolic encephalopathy; Z87.440 Personal history of urinary (tract) infections; Z88.2 Allergy status to sulfonamides; R79.89 Other specified abnormal findings of blood chemistry; N39.0 Urinary tract infection, site not specified; Z88.6 Allergy status to analgesic agent; F03.A2 Unspecified dementia, mild, with psychotic disturbance; E03.9 Hypothyroidism, unspecified; K58.9 Irritable bowel syndrome, unspecified; M79.7 Fibromyalgia

== ENCOUNTER 2023-09-24 11:49 | Inpatient (IN) ==
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
[2023-09-24] MEDS: ACETAMINOPHEN 500 MG TAB PO STA (13:30)
--- NOTE | 2023-09-24 14:14 | XRay Report ---
XR chest 1V portable HISTORY: 77 years-old Female weakness acute weakness COMPARISON: 09/10/2023 TECHNIQUE: AP view of the chest FINDINGS: Cardiac mediastinal and hilar silhouettes are within normal limits. No pneumothorax, pleural effusion or airspace consolidation. Bones appear grossly intact. IMPRESSION: No acute process. ACT 112: Negative or not required by law. The above report was generated using voice recognition software. It may contain grammatical, syntax o r spelling errors. Electronically signed by: Abdias Holland M.D. 09/24/2023 2:13 PM
[2023-09-24] MEDS: cefTRIAXone SODIUM 2,000 MG/50 ML BAG IV STA (14:16)
--- NOTE | 2023-09-24 14:21 | CT Scan Report ---
CT head/brain wo con CLINICAL HISTORY: 77 years-old Female with head pain. Acute headache TECHNIQUE: Multiple axial CT images of the head were obtained without contrast. A dose lowering tech nique was utilized adhering to the principles of ALARA. COMPARISON: Head CT 09/10/2023 FINDINGS: No acute intracranial hemorrhage, midline shift, intracranial mass, hydrocephalus, territorial ischem ia or abnormal extra-axial collection. Involutional changes with probable chronic microvascular ische julia disease. The calvarium is intact. The paranasal sinuses, mastoid air cells, and middle ear cavities are clear . IMPRESSION: No acute intracranial abnormality. ACT 112: Negative or not required by law. The above report was generated using voice recognition software. It may contain grammatical, syntax o r spelling errors. Electronically signed by: Abdias Holland M.D. 09/24/2023 2:19 PM
[2023-09-24 14:29] LABS: Albumin Level 4.9 gm/dl (3.4-5.0); BUN Creatinine Ratio 20.9 (10-20); Bilirubin,Total 1.7 mg/dl (0.2-1.0); Calcium 9.9 mg/dl (8.6-10.3); Creatinine Clr Calc Pharmacy 44.6 ml/min; Est GFR (Non-African American) 64.7 ml/min; Globulin 2.5 gm/dl (2.5-4.0); Magnesium 2.3 mg/dl (1.7-2.4); Potassium 4.4 mmol/L (3.5-5.1); Total Protein 7.4 gm/dl (6.0-8.3)
[2023-09-24 14:40] LABS: Acetaminophen 20 ug/ml (10-30); Salicylate < 3.0 mg/dl (3.0-30)
[2023-09-24 14:44] LABS: Thyroid Stimulating Hormone 2.489 uIu/ml (0.300-4.500)
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
[2023-09-24 14:51] LABS: Basophils # (auto) 0.03 K/uL (0.00-0.20); Basophils % (auto) 0.6 %; Eosinophils # (auto) 0.12 K/uL (0.00-0.50); Eosinophils % (auto) 2.2 %; Hematocrit (blood only) 43.3 % (37.0-47.0); Hemoglobin 13.6 g/dl (12.0-16.0); Immature Granulocytes # (auto) 0.02 K/uL (0.01-0.20); Immature Granulocytes % (auto) 0.4 %; Lymphocytes # (auto) 1.06 K/uL (1.20-3.40); Lymphocytes % (auto) 19.7 %; Mean Corpuscular Hemoglobin 29.7 pg (25.0-34.0); Mean Corpuscular Hgb Conc 31.4 g/dL (32.0-36.0); Mean Corpuscular Volume 94.5 fL (80.0-100.0); Monocytes # (auto) 0.36 K/uL (0.11-0.59); Monocytes % (auto) 6.7 %; Neutrophils # (auto) 3.78 K/uL (1.40-6.50); Neutrophils % (auto) 70.4 %; RDW Coefficient of Variation 13.9 % (11.5-14.5); RDW Standard Deviation 47.8 fL (36.4-46.3); Red Blood Count 4.58 M/uL (4.20-5.40); White Blood Count 5.37 K/ul (4.8-10.8)
[2023-09-24 14:53] LABS: Ovalocytes 2+; Platelet Estimate Normal (Normal)
[2023-09-24 14:56] LABS: Appearance Urine Cloudy (Clear); Bacteria Urine Automated 4+ (Negative); Bilirubin Urine Negative (Negative); Blood Urine Negative (Negative); Color Urine Yellow; Glucose Urine UA Negative (Negative); Ketones Urine Negative (Negative); Leukocyte Esterase Urine 1+ (Negative); Nitrite Urine Positive (Negative); Protein Urine Negative (Negative); RBC Urine Automated 0-4 /hpf (0-4); Specific Gravity Urine 1.027 (1.000-1.030); Urobilinogen Urine Negative (Negative); WBC Urine Automated >30 /hpf (0-5)
[2023-09-24 15:22] LABS: Amphetamines+Metham, Urine Neg (Neg); Barbiturates, Urine Neg (Neg); Benzodiazepine, Urine Neg (Neg); Cocaine, Urine Neg (Neg); MDMA (Ecstacy), Urine Neg (Neg); Marijuana, Urine Neg (Neg); Methadone, Urine Neg (Neg); Opiate, Urine Neg (Neg); Phencyclidine, Urine Neg (Neg)
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
[2023-09-24] MEDS: PLASMA-LYTE A 500 ML IV ONE (16:52)
[2023-09-25 08:31] LABS: Basophils # (auto) 0.03 K/uL (0.00-0.20); Basophils % (auto) 0.7 %; Eosinophils # (auto) 0.14 K/uL (0.00-0.50); Eosinophils % (auto) 3.4 %; Hematocrit (blood only) 37.1 % (37.0-47.0); Immature Granulocytes # (auto) 0.01 K/uL (0.01-0.20); Immature Granulocytes % (auto) 0.2 %; Lymphocytes # (auto) 1.03 K/uL (1.20-3.40); Lymphocytes % (auto) 25.2 %; Mean Corpuscular Hgb Conc 32.3 g/dL (32.0-36.0); Mean Corpuscular Volume 92.8 fL (80.0-100.0); Mean Platelet Volume 11.8 fL (9.4-12.4); Monocytes # (auto) 0.32 K/uL (0.11-0.59); Monocytes % (auto) 7.8 %; Neutrophils # (auto) 2.55 K/uL (1.40-6.50); Neutrophils % (auto) 62.7 %; Platelet Count 214 K/uL (130-400); RDW Coefficient of Variation 13.6 % (11.5-14.5); RDW Standard Deviation 46.5 fL (36.4-46.3); White Blood Count 4.08 K/ul (4.8-10.8)
[2023-09-25 08:47] LABS: BUN Creatinine Ratio 24.6 (10-20); Calcium 9.2 mg/dl (8.6-10.3); Creatinine Clr Calc Pharmacy 55.6 ml/min; Est GFR (African American) 96.6 ml/min; Est GFR (Non-African American) 83.4 ml/min; Magnesium 2.2 mg/dl (1.7-2.4); Potassium 3.9 mmol/L (3.5-5.1)
[2023-09-25] MEDS: ONDANSETRON INJ 2 MG/ML 2 ML VIAL IV PRN (14:21)
[2023-09-25] MEDS: cefTRIAXone SODIUM 2,000 MG in DEXTROSE 5 % MINI-B 50 ML IV SCH (14:22)
--- NOTE | 2023-09-25 14:27 | Electrocardiogram Report ---
Test Reason : Blood Pressure : / mmHG Vent. Rate : 070 BPM Atrial Rate : 070 BPM P-R Int : 142 ms QRS Dur : 056 ms QT Int : 398 ms P-R-T Axes : 071 059 055 degrees QTc Int : 429 ms Normal sinus rhythm Confirmed by Derek Guzman ([id number]) on 09/25/2023 2:27:22 PM Referred By: REFERRED SELF Confirmed By:Jamir Guzman
--- NOTE | 2023-09-25 22:59 | Hospitalist Progress Note ---
Date of Service September 25, 2023 Assessment & Plan (1) Acute alteration in mental status: Plan: -Admit to med/surge -Currently stable _Delirium vs possible dementia. -Patient with visual hallcnations at home. Will treat UTI with rocephin. -And monitor for possible improvement. If no improvement, will consider treating for dementia. -Patient is not safe to be discharged home as she cannot take care of herself. (2) Acute UTI: Plan: -Was diagnosed with pansensitive UTI on last admission -Was treated with Ceftriaxone while admitted but never picked up amoxicillin after discharge -UA appears infected again today, received one dose of Ceftriaxone in the ED -Continue ceftriaxone for now -Will give 500 mL Normosol on admission for mild dehydration -Follow urine culture (3) Total bilirubin, elevated: Plan: -Total bili elevated at 1.7 today -Other LFT's are WNL -Patient denies abd pain -Appears to be elevated frequently in the past -For now will hydrate and continue to monitor on daily CMP (4) Hypothyroidism: Plan: -Currently off levothyroxine -TSH today is stable, continue to monitor Admission and Anticipated Discharge Date Admission Date: September 24, 2023 Subjective 77 yo female reports no new symptoms. Review of Systems Review of Systems: All systems reviewed & are unremarkable except as noted in HPI & below Physical Exam Physical Exam: General: In no acute distress, stated age, malnourished, non-toxic appearing HEENT: Normocephalic, atraumatic, no scleral icterus, pupils around round, symmetrical, and reactive to light, dry mucus membranes, trachea midline, no thyromegaly Chest/Pulm: No respiratory distress, symmetrical chest expansion, clear breath sounds throughout Cardiac: RRR, no murmurs noted Abdomen: Negative for ascites and bruising, normoactive bowel sounds, soft, non-tender to palpation throughout Musculoskeletal: Symmetrical and without signs of acute trauma, upper and lower extremities with full ROM, no atrophy, spasticity, or flaccidity Extremities: Radial, dorsalis pedis, and posterior tibial pulses are intact and symmetrical, no edema noted in the BL LE's Skin: Warm, dry, no rashes , lesions, or scars noted Neuro: Alert and oriented to person and place Results & Data Results & Data Vital Signs (Past 12 Hours) Vital Signs Temp Pulse Resp BP Pulse Ox O2 Del Method 09/25/23 20:50 36.7 C 85 16 119/66 98 Room Air 09/25/23 14:37 36.7 C 73 16 105/68 97 Room Air PG Care Time/CCT Total # of Minutes Spent Total Time Spent with Patient: Total time spent is greater than 50% in coordination of care (as documented) at patient's floor/unit and/or counseling patient: Coding Level of Care Code 19335 SUB INP/OBS CARE 2/35MIN Diagnoses Acute alteration in mental status R41.82 Acute UTI N39.0 Total bilirubin, elevated R17 Hypothyroidism E03.9
[2023-09-26 06:32] LABS: Basophils # (auto) 0.04 K/uL (0.00-0.20); Basophils % (auto) 0.8 %; Eosinophils # (auto) 0.12 K/uL (0.00-0.50); Eosinophils % (auto) 2.3 %; Hematocrit (blood only) 37.9 % (37.0-47.0); Hemoglobin 12.7 g/dl (12.0-16.0); Immature Granulocytes # (auto) 0.01 K/uL (0.01-0.20); Immature Granulocytes % (auto) 0.2 %; Lymphocytes # (auto) 1.15 K/uL (1.20-3.40); Lymphocytes % (auto) 21.9 %; Mean Corpuscular Hemoglobin 30.2 pg (25.0-34.0); Mean Corpuscular Hgb Conc 33.5 g/dL (32.0-36.0); Mean Platelet Volume 11.6 fL (9.4-12.4); Monocytes % (auto) 7.6 %; Neutrophils # (auto) 3.53 K/uL (1.40-6.50); Neutrophils % (auto) 67.2 %; Platelet Count 252 K/uL (130-400); RDW Coefficient of Variation 13.7 % (11.5-14.5); RDW Standard Deviation 44.9 fL (36.4-46.3); Red Blood Count 4.21 M/uL (4.20-5.40); White Blood Count 5.25 K/ul (4.8-10.8)
[2023-09-26 06:33] LABS: BUN Creatinine Ratio 26.4 (10-20); Calcium 9.4 mg/dl (8.6-10.3); Creatinine Clr Calc Pharmacy 44.1 ml/min; Est GFR (Non-African American) 63.8 ml/min; Magnesium 2.1 mg/dl (1.7-2.4); Potassium 3.5 mmol/L (3.5-5.1)
[2023-09-26] MEDS: OLANZapine 10 MG/2.1 ML SDV IM STA (07:17)
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
[2023-09-26] MEDS: INFLUENZA VACCINE HIGH-DOSE (HD-IIV4) PF 65+ 0.7mL SYR IM ONE (14:33)
[2023-09-26] MEDS: PNEUMOCOCCAL VACCINE (PCV20) 20-VAL CONJ-DIP CRM/PF 0.5 ML SYR IM ONE (14:33)
[2023-09-27 07:35] LABS: Basophils # (auto) 0.05 K/uL (0.00-0.20); Basophils % (auto) 1.1 %; Eosinophils # (auto) 0.23 K/uL (0.00-0.50); Eosinophils % (auto) 4.9 %; Hematocrit (blood only) 38.5 % (37.0-47.0); Hemoglobin 12.7 g/dl (12.0-16.0); Immature Granulocytes # (auto) 0.01 K/uL (0.01-0.20); Immature Granulocytes % (auto) 0.2 %; Lymphocytes # (auto) 1.39 K/uL (1.20-3.40); Lymphocytes % (auto) 29.6 %; Mean Corpuscular Hemoglobin 30.1 pg (25.0-34.0); Mean Corpuscular Volume 91.2 fL (80.0-100.0); Mean Platelet Volume 11.5 fL (9.4-12.4); Monocytes # (auto) 0.49 K/uL (0.11-0.59); Monocytes % (auto) 10.4 %; Neutrophils # (auto) 2.53 K/uL (1.40-6.50); Neutrophils % (auto) 53.8 %; Platelet Count 243 K/uL (130-400); RDW Coefficient of Variation 13.8 % (11.5-14.5); RDW Standard Deviation 46.5 fL (36.4-46.3); Red Blood Count 4.22 M/uL (4.20-5.40)
[2023-09-27 08:08] LABS: Albumin Level 4.2 gm/dl (3.4-5.0); Bilirubin,Total 1.2 mg/dl (0.2-1.0); Calcium 9.1 mg/dl (8.6-10.3); Magnesium 2.1 mg/dl (1.7-2.4); Potassium 3.9 mmol/L (3.5-5.1)
[2023-09-27 08:14] LABS: BUN Creatinine Ratio 30.1 (10-20); Creatinine Clr Calc Pharmacy 46.2 ml/min; Est GFR (African American) 78.3 ml/min; Est GFR (Non-African American) 67.5 ml/min; Globulin 2.1 gm/dl (2.5-4.0); Total Protein 6.3 gm/dl (6.0-8.3)
--- NOTE | 2023-09-27 16:55 | Hospitalist Progress Note ---
Date of Service September 27, 2023 Assessment & Plan (1) Acute alteration in mental status: Plan: -Admit to med/surge -Currently stable -Possible acute metabolic encephalopathy _Delirium vs possible dementia. Patient continues douglas confused. -Patient with visual hallcnations at home. Will treat UTI with rocephin. -And monitor for possible improvement. If no improvement, will consider treating for dementia. -Patient is not safe to be discharged home as she cannot take care of herself. May consider adding aricpet. continue above plan (2) Acute UTI: Plan: -Was diagnosed with pansensitive UTI on last admission -Was treated with Ceftriaxone while admitted but never picked up amoxicillin after discharge -UA appears infected again today, received one dose of Ceftriaxone in the ED -Continue ceftriaxone for now -Will give 500 mL Normosol on admission for mild dehydration -Follow urine culture (3) Total bilirubin, elevated: Plan: -Total bili elevated at 1.7 today -Other LFT's are WNL -Patient denies abd pain -Appears to be elevated frequently in the past -For now will hydrate and continue to monitor on daily CMP (4) Hypothyroidism: Plan: -Currently off levothyroxine -TSH today is stable, continue to monitor Admission and Anticipated Discharge Date Admission Date: September 24, 2023 Subjective 77 yo female reports no new symptoms. Review of Systems Review of Systems: All systems reviewed & are unremarkable except as noted in HPI & below Physical Exam Physical Exam: General: In no acute distress, stated age, malnourished, non-toxic appearing HEENT: Normocephalic, atraumatic Neuro: Alert and oriented to person and place Results & Data Results & Data Vital Signs (Past 12 Hours) Vital Signs Temp Pulse Resp BP Pulse Ox O2 Del Method 09/27/23 14:33 36.6 C 96 H 16 97/67 L 100 Room Air PG Care Time/CCT Total # of Minutes Spent Total Time Spent with Patient: Total time spent is greater than 50% in coordination of care (as documented) at patient's floor/unit and/or counseling patient: Coding Level of Care Code 08108 SUB INP/OBS CARE 2/35MIN Diagnoses Acute alteration in mental status R41.82 Acute UTI N39.0 Total bilirubin, elevated R17 Hypothyroidism E03.9
[2023-09-28 07:45] LABS: Basophils # (auto) 0.08 K/uL (0.00-0.20); Basophils % (auto) 1.5 %; Eosinophils % (auto) 3.8 %; Hematocrit (blood only) 38.8 % (37.0-47.0); Hemoglobin 12.7 g/dl (12.0-16.0); Immature Granulocytes # (auto) 0.01 K/uL (0.01-0.20); Immature Granulocytes % (auto) 0.2 %; Lymphocytes # (auto) 1.79 K/uL (1.20-3.40); Lymphocytes % (auto) 33.9 %; Mean Corpuscular Hgb Conc 32.7 g/dL (32.0-36.0); Mean Corpuscular Volume 91.7 fL (80.0-100.0); Mean Platelet Volume 11.4 fL (9.4-12.4); Monocytes # (auto) 0.43 K/uL (0.11-0.59); Monocytes % (auto) 8.1 %; Neutrophils # (auto) 2.77 K/uL (1.40-6.50); Neutrophils % (auto) 52.5 %; Platelet Count 269 K/uL (130-400); RDW Coefficient of Variation 13.5 % (11.5-14.5); Red Blood Count 4.23 M/uL (4.20-5.40); White Blood Count 5.28 K/ul (4.8-10.8)
[2023-09-28 08:05] LABS: Albumin Globulin Ratio 1.9 (0.9-2); Albumin Level 4.2 gm/dl (3.4-5.0); BUN Creatinine Ratio 21.2 (10-20); Calcium 9.6 mg/dl (8.6-10.3); Creatinine Clr Calc Pharmacy 38.7 ml/min; Est GFR (African American) 63.3 ml/min; Est GFR (Non-African American) 54.6 ml/min; Globulin 2.2 gm/dl (2.5-4.0); Magnesium 2.2 mg/dl (1.7-2.4); Potassium 3.8 mmol/L (3.5-5.1); Total Protein 6.4 gm/dl (6.0-8.3)
[2023-09-28 08:19] LABS: Thyroid Stimulating Hormone 2.82 uIu/ml (0.300-4.500)
--- NOTE | 2023-09-28 22:12 | Hospitalist Progress Note ---
Date of Service September 28, 2023 Assessment & Plan (1) Acute alteration in mental status: Plan: -Admit to med/surge -Currently stable -Possible acute metabolic encephalopathy _Delirium vs possible dementia. Patient continues douglas confused. -Patient with visual hallcnations at home. Will treat UTI with rocephin. -And monitor for possible improvement. If no improvement, will consider treating for dementia. -Patient is not safe to be discharged home as she cannot take care of herself. May consider adding aricpet. continue above plan. If no improvement, will consider consulting psych, neuro. (2) Acute UTI: Plan: -Was diagnosed with pansensitive UTI on last admission -Was treated with Ceftriaxone while admitted but never picked up amoxicillin after discharge -UA appears infected again today, received one dose of Ceftriaxone in the ED -Continue ceftriaxone for now -Will give 500 mL Normosol on admission for mild dehydration -Follow urine culture (3) Total bilirubin, elevated: Plan: -Total bili elevated at 1.7 today -Other LFT's are WNL -Patient denies abd pain -Appears to be elevated frequently in the past -For now will hydrate and continue to monitor on daily CMP (4) Hypothyroidism: Plan: -Currently off levothyroxine -TSH today is stable, continue to monitor Admission and Anticipated Discharge Date Admission Date: September 24, 2023 Subjective Patient reports no new symptoms. Review of Systems Review of Systems: All systems reviewed & are unremarkable except as noted in HPI & below Physical Exam Physical Exam: General: In no acute distress, stated age, malnourished, non-toxic appearing HEENT: Normocephalic, atraumatic Neuro: Alert and oriented to person and place Results & Data Results & Data Vital Signs (Past 12 Hours) Vital Signs Temp Pulse Resp BP Pulse Ox O2 Del Method 09/28/23 19:38 36.6 C 80 18 100/66 96 Room Air 09/28/23 15:39 36.8 C 76 18 100/61 97 Room Air PG Care Time/CCT Total # of Minutes Spent Total Time Spent with Patient: Total time spent is greater than 50% in coordination of care (as documented) at patient's floor/unit and/or counseling patient: Coding Level of Care Code 14225 SUB INP/OBS CARE 2/35MIN Diagnoses Acute alteration in mental status R41.82 Acute UTI N39.0 Total bilirubin, elevated R17 Hypothyroidism E03.9
[2023-09-29 07:09] LABS: Basophils # (auto) 0.04 K/uL (0.00-0.20); Basophils % (auto) 0.7 %; Eosinophils # (auto) 0.19 K/uL (0.00-0.50); Eosinophils % (auto) 3.3 %; Hematocrit (blood only) 38.1 % (37.0-47.0); Hemoglobin 12.5 g/dl (12.0-16.0); Immature Granulocytes # (auto) 0.01 K/uL (0.01-0.20); Immature Granulocytes % (auto) 0.2 %; Lymphocytes # (auto) 1.35 K/uL (1.20-3.40); Lymphocytes % (auto) 23.8 %; Mean Corpuscular Hgb Conc 32.8 g/dL (32.0-36.0); Mean Corpuscular Volume 91.4 fL (80.0-100.0); Mean Platelet Volume 11.5 fL (9.4-12.4); Monocytes # (auto) 0.52 K/uL (0.11-0.59); Monocytes % (auto) 9.2 %; Neutrophils # (auto) 3.57 K/uL (1.40-6.50); Neutrophils % (auto) 62.8 %; Platelet Count 263 K/uL (130-400); RDW Coefficient of Variation 13.2 % (11.5-14.5); RDW Standard Deviation 44.6 fL (36.4-46.3); Red Blood Count 4.17 M/uL (4.20-5.40); White Blood Count 5.68 K/ul (4.8-10.8)
[2023-09-29 07:29] LABS: BUN Creatinine Ratio 21.3 (10-20); Calcium 9.8 mg/dl (8.6-10.3); Creatinine Clr Calc Pharmacy 47.9 ml/min; Est GFR (African American) 81.8 ml/min; Est GFR (Non-African American) 70.6 ml/min; Magnesium 2.1 mg/dl (1.7-2.4); Potassium 3.7 mmol/L (3.5-5.1)
--- NOTE | 2023-09-29 08:55 | Hospitalist Progress Note ---
Date of Service September 29, 2023 Assessment & Plan (1) Acute alteration in mental status: Plan: -Admit to med/surge -Currently stable -Possible acute metabolic encephalopathy -Delirium vs possible dementia. Patient showing signs of dementia. COnsulted Neuro: agrees with adding aricpet, though do not anctipate this will provoke a quick or significant turnaround Patient does not meet have ca[acity at this time. -Patient with visual hallcnations at home, will also consult psych. Treated for possible UTI with 5 days of rocephin. -Patient is not safe to be discharged home as she cannot take care of herself. continue above plan. * Mini mental State Examination completed on 09/13: scored /30 * Did not answer day of the week, could not remember 1 out the 3 words, could not draw the diagram, did not know the name of the hospital. (2) Acute UTI: Plan: -Was diagnosed with pansensitive UTI on last admission -Was treated with Ceftriaxone while admitted but never picked up amoxicillin after discharge -UA appears infected again today, received one dose of Ceftriaxone in the ED -Treated with 5 days of rocephin (3) Total bilirubin, elevated: Plan: -Total bili elevated at 1.7 today -Other LFT's are WNL -Patient denies abd pain -Appears to be elevated frequently in the past -For now will hydrate and continue to monitor on daily CMP (4) Hypothyroidism: Plan: -Currently off levothyroxine -TSH today is stable, continue to monitor Admission and Anticipated Discharge Date Admission Date: September 24, 2023 Subjective Patient continues to be a poor historian. Unable to recall her age, believes it is 75. She was wandering the halls as per nursing. Review of Systems Review of Systems: All systems reviewed & are unremarkable except as noted in HPI & below Physical Exam Physical Exam: General: In no acute distress, stated age, malnourished, non-toxic appearing HEENT: Normocephalic, atraumatic Neuro: Alert and oriented to person and place Results & Data Results & Data Vital Signs (Past 12 Hours) Vital Signs Temp Pulse Resp BP Pulse Ox O2 Del Method 09/29/23 07:17 36.6 C 69 16 107/67 97 Room Air PG Care Time/CCT Total # of Minutes Spent Total Time Spent with Patient: Total time spent is greater than 50% in coordination of care (as documented) at patient's floor/unit and/or counseling patient: Coding Level of Care Code 09824 SUB INP/OBS CARE 2/35MIN Diagnoses Acute alteration in mental status R41.82 Acute UTI N39.0 Total bilirubin, elevated R17 Hypothyroidism E03.9
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
[2023-09-29] MEDS: DONEPEZIL HCL 5 MG TAB PO SCH (20:15)
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
--- NOTE | 2023-09-30 22:15 | Hospitalist Progress Note ---
Date of Service September 30, 2023 Assessment & Plan (1) Acute alteration in mental status: Plan: -Admit to med/surge -Currently stable -Possible acute metabolic encephalopathy -Delirium vs possible dementia. Patient showing signs of dementia. COnsulted Neuro: agrees with adding aricpet, though do not anctipate this will provoke a quick or significant turnaround Patient does not meet have capacity at this time, and cannot care for herself at home. -Patient with visual hallcnations at home, will also consult psych. Treated for possible UTI with 5 days of rocephin. Patient remains confused whcih was expected. Appreciate input from Neuro. -Patient is not safe to be discharged home as she cannot take care of herself. continue above plan. * Mini mental State Examination completed on 09/13: scored * Did not answer day of the week, could not remember 1 out the 3 words, could not draw the diagram, did not know the name of the hospital. (2) Acute UTI: Plan: -Was diagnosed with pansensitive UTI on last admission -Was treated with Ceftriaxone while admitted but never picked up amoxicillin after discharge -UA appears infected again today, received one dose of Ceftriaxone in the ED -Treated with 5 days of rocephin (3) Total bilirubin, elevated: Plan: -Total bili elevated at 1.7 today -Other LFT's are WNL -Patient denies abd pain -Appears to be elevated frequently in the past -For now will hydrate and continue to monitor on daily CMP (4) Hypothyroidism: Plan: -Currently off levothyroxine -TSH today is stable, continue to monitor Admission and Anticipated Discharge Date Admission Date: September 24, 2023 Subjective Patient is calm reading a book; no new symptoms. Review of Systems Review of Systems: All systems reviewed & are unremarkable except as noted in HPI & below Physical Exam Physical Exam: General: In no acute distress, stated age, malnourished, non-toxic appearing HEENT: Normocephalic, atraumatic Neuro: Alert and oriented to person and place Results & Data Results & Data Vital Signs (Past 12 Hours) Vital Signs Temp Pulse Resp BP BP Pulse Ox O2 Del Method 09/30/23 21:35 36.3 C L 105 H 18 115/75 95 Room Air 09/30/23 15:23 36.7 C 100 H 16 131/90 98 Room Air PG Care Time/CCT Total # of Minutes Spent Total Time Spent with Patient: Total time spent is greater than 50% in coordination of care (as documented) at patient's floor/unit and/or counseling patient: Coding Level of Care Code 35504 SUB INP/OBS CARE 2/35MIN Diagnoses Acute alteration in mental status R41.82 Acute UTI N39.0 Total bilirubin, elevated R17 Hypothyroidism E03.9
--- NOTE | 2023-10-01 15:27 | Hospitalist Progress Note ---
Date of Service October 01, 2023 Assessment & Plan (1) Acute alteration in mental status: Plan: Baseline dementia and disorientation. There may have been an component of acute metabolic encephalopathy on admission. UTI has been treated. Supportive care (2) Acute UTI: Plan: Present on admission. She has been treated with 5 days of parenteral Rocephin. No further treatment at this time. (3) Total bilirubin, elevated: Plan: Appears to be chronic. Other liver enzymes are within normal limits. No intervention necessary at this time. (4) Hypothyroidism: Plan: Currently off levothyroxine. TSH is normal. Free T4 level pending Plan Placement proceedings underway. Family members are being petitioned to assume POA duties. Admission and Anticipated Discharge Date Admission Date: September 24, 2023 Subjective Alert and pleasant. Case management entry noted. Family members are being petitioned to assume POA responsibilities. Placement proceedings are underway Review of Systems 2 Review of Systems: The patient is unable to accurately respond to any questions regarding review of systems Physical Exam 2 Physical Exam: General-alert but demented and disoriented. Pleasant however. HEENT-head atraumatic and normocephalic, pupils equal and reactive to light, extraocular muscles intact Neck-no lymphadenopathy or thyromegaly, trachea midline Chest-clear to auscultation percussion. No rales, wheezing or rhonchi Cardiac-regular rate and rhythm, normal S1 and S2 Abdomen-normal bowel sounds, nontender, no hepatosplenomegaly Extremities-no cyanosis, clubbing, or edema Neuro-cranial nerves II through XII intact, motor and sensory function within normal limits, strength symmetrical, no focal deficits Psych-normal affect, normal mood. Baseline dementia and disorientation Results & Data Results & Data Vital Signs (Past 12 Hours) Vital Signs Temp Pulse Resp BP Pulse Ox O2 Del Method 10/01/23 14:47 36.8 C 76 18 100/64 99 Room Air 10/01/23 10:27 36.4 C L 67 16 103/70 99 Room Air Laboratory Results 09/29/23 06:17 09/29/23 06:17 PG Care Time/CCT Total # of Minutes Spent Total Time Spent with Patient: Total time spent is greater than 50% in coordination of care (as documented) at patient's floor/unit and/or counseling patient: Coding Level of Care Code 37333 SUB INP/OBS CARE 3/50MIN Diagnoses Acute alteration in mental status R41.82 Acute UTI N39.0 Total bilirubin, elevated R17 Hypothyroidism E03.9
[2023-10-02] MEDS: OLANZapine 10 MG/2.1 ML SDV IM STA (07:13)
--- NOTE | 2023-10-02 15:41 | Hospitalist Progress Note ---
Date of Service October 02, 2023 Assessment & Plan (1) Acute alteration in mental status: Plan: Baseline dementia and disorientation. There may have been an component of acute metabolic encephalopathy on admission. UTI has been treated. Supportive care (2) Acute UTI: Plan: Present on admission. Now resolved. She has been treated with 5 days of parenteral Rocephin. No further treatment at this time. (3) Total bilirubin, elevated: Plan: Appears to be chronic. Other liver enzymes are within normal limits. No intervention necessary at this time. (4) Hypothyroidism: Plan: Currently off levothyroxine. TSH is normal. Free T4 level pending Plan Placement proceedings underway. Family members are being petitioned to assume POA duties. Admission and Anticipated Discharge Date Admission Date: September 24, 2023 Subjective Alert. Pleasant. No acute distress. No new problems. Review of Systems 2 Review of Systems: The patient is unable to accurately respond to any questions regarding review of systems Physical Exam 2 Physical Exam: General-alert but demented and disoriented. Pleasant however. HEENT-head atraumatic and normocephalic, pupils equal and reactive to light, extraocular muscles intact Neck-no lymphadenopathy or thyromegaly, trachea midline Chest-clear to auscultation percussion. No rales, wheezing or rhonchi Cardiac-regular rate and rhythm, normal S1 and S2 Abdomen-normal bowel sounds, nontender, no hepatosplenomegaly Extremities-no cyanosis, clubbing, or edema Neuro-cranial nerves II through XII intact, motor and sensory function within normal limits, strength symmetrical, no focal deficits Psych-normal affect, normal mood. Baseline dementia and disorientation Results & Data Results & Data Laboratory Results 09/29/23 06:17 09/29/23 06:17 PG Care Time/CCT Total # of Minutes Spent Total Time Spent with Patient: Total time spent is greater than 50% in coordination of care (as documented) at patient's floor/unit and/or counseling patient: Coding Level of Care Code 00999 SUB INP/OBS CARE 2/35MIN Diagnoses Acute alteration in mental status R41.82 Acute UTI N39.0 Total bilirubin, elevated R17 Hypothyroidism E03.9
--- NOTE | 2023-10-03 10:07 | Hospitalist Progress Note ---
Date of Service October 03, 2023 Assessment & Plan (1) Acute alteration in mental status: Plan: Baseline dementia and disorientation. There may have been an component of acute metabolic encephalopathy on admission. UTI has been treated. Supportive care (2) Acute UTI: Plan: Present on admission. Now resolved. She has been treated with 5 days of parenteral Rocephin. No further treatment at this time. (3) Total bilirubin, elevated: Plan: Appears to be chronic. Other liver enzymes are within normal limits. No intervention necessary at this time. (4) Hypothyroidism: Plan: Currently off levothyroxine. TSH is normal. Free T4 level pending Plan Placement proceedings underway. Family members are being petitioned to assume POA duties. Admission and Anticipated Discharge Date Admission Date: September 24, 2023 Subjective patient is alert she is not oriented that she is tangential in her thinking. She is complacent and staying until we receive appropriate placement however she at times wants to go home but then cannot deliver details on how to get her home or who care for her at that site. Otherwise she is in no distress Physical Exam Physical Exam: pleasant sitting in street clothes no active distress cardiac exam is regular lungs are clear abdomen NABS extremities are without edema Results & Data Results & Data Vital Signs (Past 12 Hours) Vital Signs Temp Pulse Resp BP Pulse Ox O2 Del Method 10/03/23 07:31 Room Air 10/03/23 06:31 97.7 F 76 16 121/76 98 Room Air PG Care Time/CCT Total # of Minutes Spent Total Time Spent with Patient: Total time spent is greater than 50% in coordination of care (as documented) at patient's floor/unit and/or counseling patient: Coding Level of Care Code 78690 SUB INP/OBS CARE 1/25MIN Diagnoses Acute alteration in mental status R41.82 Acute UTI N39.0 Total bilirubin, elevated R17 Hypothyroidism E03.9
[2023-10-03] MEDS: MELATONIN 3 MG TAB PO PRN (22:10)
[2023-10-04] MEDS: ACETAMINOPHEN 325 MG TAB PO PRN (10:08)
--- NOTE | 2023-10-04 18:16 | Hospitalist Progress Note ---
Date of Service October 04, 2023 Assessment & Plan (1) Acute alteration in mental status: Plan: Baseline dementia and disorientation. acute metabolic encephalopathy on admission secondary to UTI s/p treatment treated with 5 days of parenteral Rocephin Supportive care (2) Total bilirubin, elevated: Plan: resolved (3) Hypothyroidism: Plan: Currently off levothyroxine. TSH is normal. Free T4 level normal Plan Placement proceedings underway. Family members are being petitioned to assume POA duties. placement is challenging Admission and Anticipated Discharge Date Admission Date: September 24, 2023 Subjective patient is alert she is not oriented she is still not having lucid thought, initially requesting a shower now refused She is complacent and staying until we receive appropriate placement Physical Exam Physical Exam: pleasant sleeping in her street clothes no active distress cardiac exam is regular lungs are clear abdomen NABS extremities are without edema Results & Data Results & Data Vital Signs (Past 12 Hours) Vital Signs Temp Pulse BP Pulse Ox O2 Del Method 10/04/23 09:11 97.5 F L 83 149/83 H 97 Room Air PG Care Time/CCT Total # of Minutes Spent Total Time Spent with Patient: Total time spent is greater than 50% in coordination of care (as documented) at patient's floor/unit and/or counseling patient: Coding Level of Care Code 69093 SUB INP/OBS CARE 1/25MIN Diagnoses Acute alteration in mental status R41.82 Total bilirubin, elevated R17 Hypothyroidism E03.9
--- NOTE | 2023-10-05 16:43 | Hospitalist Progress Note ---
Date of Service October 05, 2023 Assessment & Plan (1) Acute alteration in mental status: Plan: Baseline dementia and disorientation. acute metabolic encephalopathy on admission secondary to UTI s/p treatment completed 5 days of parenteral Rocephin continue Supportive care (2) Total bilirubin, elevated: Plan: resolved (3) Hypothyroidism: Plan: Currently off levothyroxine. TSH is normal. Free T4 level normal Plan Placement proceedings underway. Family members are being petitioned to assume POA duties. placement is challenging Admission and Anticipated Discharge Date Admission Date: September 24, 2023 Subjective patient is alert she is not oriented, but tangentially conversant she is still not having lucid thought, initially showered 10/06/23 She is complacent and staying until we receive appropriate placement and have secured a POA Physical Exam Physical Exam: pleasant sleeping in her street clothes no active distress cardiac exam is regular lungs are clear abdomen NABS extremities are without edema Results & Data Results & Data Vital Signs (Past 12 Hours) Vital Signs Temp Pulse Resp BP Pulse Ox O2 Del Method 10/05/23 15:00 98.1 F 72 18 106/67 98 Room Air 10/05/23 09:14 97.2 F L 69 16 117/80 95 Room Air PG Care Time/CCT Total # of Minutes Spent Total Time Spent with Patient: Total time spent is greater than 50% in coordination of care (as documented) at patient's floor/unit and/or counseling patient: Coding Level of Care Code 10241 SUB INP/OBS CARE 1/25MIN Diagnoses Acute alteration in mental status R41.82 Total bilirubin, elevated R17 Hypothyroidism E03.9
[2023-10-05] MEDS ORDERED: ONDANSETRON INJ 2 MG/ML 2 ML VIAL IV PRN (18:32)
[2023-10-05] MEDS: GLUCAGON FOR INJ 1 MG VIAL SQ ONE (18:44)
--- NOTE | 2023-10-05 18:58 | XRay Report ---
SINGLE VIEW CHEST CLINICAL HISTORY: Aspiration. FINDINGS: An AP, portable, upright chest radiograph is compared to study dated 09/24/2023. The cardio mediastinal silhouette is unremarkable noting atherosclerotic calcification of the thoracic aorta. Ch ronic interstitial thickening is similar to previous. Nipple shadows project over the lung bases. The lungs and pleural spaces are clear. No pneumothorax is seen. The skeletal structures are osteopenic. There is chronic deformity of the right proximal humerus. IMPRESSION: No active disease in the chest. ACT 112: Negative or not required by law. Electronically signed by: Waldo Guerin M.D. 10/05/2023 6:57 PM
[2023-10-05] MEDS: SODIUM CHLORIDE 0.9% 1,000 ML IV SCH (19:01)
[2023-10-06 12:12] LABS: Influenza A virus by PCR Negative (Neg); Influenza B virus by PCR Negative (Neg); RSV by PCR Negative (Neg); SARS CoV2 RNA(COVID-19) Ceph NEGATIVE (Negative)
--- NOTE | 2023-10-06 14:02 | Hospitalist Progress Note ---
Date of Service October 05, 2023 Assessment & Plan (1) Acute alteration in mental status: Plan: Baseline dementia and disorientation. acute metabolic encephalopathy on admission secondary to UTI s/p treatment completed 5 days of parenteral Rocephin continue Supportive care (2) Total bilirubin, elevated: Plan: resolved (3) Hypothyroidism: Plan: Currently off levothyroxine. TSH is normal. Free T4 level normal Plan Placement proceedings underway. Family members are being petitioned to assume POA duties. placement is challenging Admission and Anticipated Discharge Date Admission Date: September 24, 2023 Subjective patient is alert she is not oriented, but tangentially conversant she is still not having lucid thought, initially showered 10/06/23 She is complacent and staying until we receive appropriate placement and have secured a POA Physical Exam Physical Exam: pleasant sleeping in her street clothes no active distress cardiac exam is regular lungs are clear abdomen NABS extremities are without edema Results & Data Results & Data Vital Signs (Past 12 Hours) Vital Signs Temp Pulse Resp BP Pulse Ox Pulse Ox O2 Del Method 10/05/23 18:35 100 10/05/23 18:01 86 15 134/84 97 Room Air 10/05/23 15:00 98.1 F 72 18 106/67 98 Room Air 10/05/23 09:14 97.2 F L 69 16 117/80 95 Room Air O2 Del Method 10/05/23 18:35 Room Air 10/05/23 18:01 10/05/23 15:00 10/05/23 09:14 PG Care Time/CCT Total # of Minutes Spent Total Time Spent with Patient: Total time spent is greater than 50% in coordination of care (as documented) at patient's floor/unit and/or counseling patient: Coding Diagnoses Acute alteration in mental status R41.82 Total bilirubin, elevated R17 Hypothyroidism E03.9
--- NOTE | 2023-10-06 14:06 | Hospitalist Progress Note ---
Date of Service October 06, 2023 Assessment & Plan (1) Acute alteration in mental status: Plan: Baseline dementia and disorientation. acute metabolic encephalopathy on admission secondary to UTI s/p treatment completed 5 days of parenteral Rocephin continue Supportive care (2) Total bilirubin, elevated: Plan: resolved (3) Hypothyroidism: Plan: Currently off levothyroxine. TSH is normal. Free T4 level normal (4) Dysphagia: Plan: 1 episode of choking in the evening of 1211 no residual effects from it. Will to continue surveillance to see if the patient has any aspiration pneumonitis or pneumonia. Plan Placement proceedings underway. Family members are being petitioned to assume POA duties. placement is challenging Admission and Anticipated Discharge Date Admission Date: September 24, 2023 Subjective patient is alert she is not oriented, but tangentially conversant Patient an episode of choking on her dinner in the evening of 10/05. Chest x- ray was obtained without remark her oxygen sats were good overnight she is given a dose of subcutaneous glucagon and over time has improved. I personally evaluate the patient to drink water at the bedside on 10/06 this seem to go without incident and her diet was readvanced. She is complacent and staying until we receive appropriate placement and have secured a POA Physical Exam Physical Exam: This morning the patient is in no distress she is able to drink liquids cardiac exam is regular lungs are clear she complains of feeling "bad all over" cannot be more specific than that. PG Care Time/CCT Total # of Minutes Spent Total Time Spent with Patient: Total time spent is greater than 50% in coordination of care (as documented) at patient's floor/unit and/or counseling patient: Coding Level of Care Code 12202 SUB INP/OBS CARE 2/35MIN Diagnoses Acute alteration in mental status R41.82 Total bilirubin, elevated R17 Hypothyroidism E03.9 Dysphagia R13.10
--- NOTE | 2023-10-07 17:03 | Hospitalist Progress Note ---
Date of Service October 07, 2023 Assessment & Plan (1) Acute alteration in mental status: Plan: Baseline dementia and disorientation. acute metabolic encephalopathy on admission secondary to UTI s/p treatment completed 5 days of parenteral Rocephin continue Supportive care (2) Total bilirubin, elevated: Plan: resolved, recheck 10/08 (3) Hypothyroidism: Plan: Currently off levothyroxine. TSH is normal. Free T4 level normal (4) Dysphagia: Plan: 1 episode of choking in the evening of 10/05 no residual effects from it. Will to continue surveillance to see if the patient has any aspiration pneumonitis or pneumonia. Plan Placement proceedings underway. Family members are being petitioned to assume POA duties. placement is challenging Admission and Anticipated Discharge Date Admission Date: September 24, 2023 Subjective pt is pleasant has no complaints or issues Physical Exam Physical Exam: pt is awake, pleasantly confused cardiac is regular lungs are clear no further chocking Results & Data Results & Data Vital Signs (Past 12 Hours) Vital Signs Temp Pulse Resp BP Pulse Ox O2 Del Method 10/07/23 06:44 98.1 F 73 16 116/76 99 Room Air Laboratory Results Ordered laboratories since there is no labs been in checked in a week CBC and chemistry pending for 1214 PG Care Time/CCT Total # of Minutes Spent Total Time Spent with Patient: Total time spent is greater than 50% in coordination of care (as documented) at patient's floor/unit and/or counseling patient: Coding Level of Care Code 08394 SUB INP/OBS CARE 1/25MIN Diagnoses Acute alteration in mental status R41.82 Total bilirubin, elevated R17 Hypothyroidism E03.9 Dysphagia R13.10
[2023-10-08 07:58] LABS: Hematocrit (blood only) 37.4 % (37.0-47.0); Hemoglobin 12.2 g/dl (12.0-16.0); Mean Corpuscular Hemoglobin 29.6 pg (25.0-34.0); Mean Corpuscular Hgb Conc 32.6 g/dL (32.0-36.0); Mean Corpuscular Volume 90.8 fL (80.0-100.0); Platelet Count 204 K/uL (130-400); RDW Coefficient of Variation 13.3 % (11.5-14.5); RDW Standard Deviation 43.7 fL (36.4-46.3); Red Blood Count 4.12 M/uL (4.20-5.40); White Blood Count 4.95 K/ul (4.8-10.8)
[2023-10-08 08:18] LABS: BUN Creatinine Ratio 22.9 (10-20); Bilirubin,Total 1.4 mg/dl (0.2-1.0); Calcium 9.7 mg/dl (8.6-10.3); Creatinine Clr Calc Pharmacy 44.4 ml/min; Est GFR (African American) 78.3 ml/min; Est GFR (Non-African American) 67.5 ml/min; Potassium 3.9 mmol/L (3.5-5.1)
--- NOTE | 2023-10-08 12:17 | Hospitalist Progress Note ---
Date of Service October 08, 2023 Assessment & Plan (1) Acute alteration in mental status: Plan: Baseline dementia and disorientation. acute metabolic encephalopathy on admission secondary to UTI s/p treatment completed 5 days of parenteral Rocephin continue Supportive care (2) Total bilirubin, elevated: Plan: resolved, recheck 10/08 (3) Hypothyroidism: Plan: Currently off levothyroxine. TSH is normal. Free T4 level normal (4) Dysphagia: Plan: 1 episode of choking in the evening of 10/05 no residual effects from it. Will to continue surveillance to see if the patient has any aspiration pneumonitis or pneumonia. Plan Placement proceedings underway. Family members are being petitioned to assume POA duties. placement is challenging Admission and Anticipated Discharge Date Admission Date: September 24, 2023 Subjective Patient is comfortably resting. Review of Systems Review of Systems: All systems reviewed & are unremarkable except as noted in HPI & below Physical Exam Physical Exam: General: In no acute distress, stated age, malnourished, non-toxic appearing HEENT: Normocephalic, atraumatic Neuro: Alert and oriented to person and place Results & Data Results & Data Vital Signs (Past 12 Hours) Vital Signs Temp Pulse Resp BP Pulse Ox O2 Del Method 10/08/23 07:29 36.4 C L 60 16 119/75 98 Room Air PG Care Time/CCT Total # of Minutes Spent Total Time Spent with Patient: Total time spent is greater than 50% in coordination of care (as documented) at patient's floor/unit and/or counseling patient: Coding Level of Care Code 48279 SUB INP/OBS CARE 2/35MIN Diagnoses Acute alteration in mental status R41.82 Total bilirubin, elevated R17 Hypothyroidism E03.9 Dysphagia R13.10 Time Spent (min) 35 Comment chart review
--- NOTE | 2023-10-09 22:31 | Hospitalist Progress Note ---
Date of Service October 09, 2023 Assessment & Plan (1) Acute alteration in mental status: Plan: Baseline dementia and disorientation. acute metabolic encephalopathy on admission secondary to UTI s/p treatment completed 5 days of parenteral Rocephin continue Supportive care (2) Total bilirubin, elevated: Plan: resolved, recheck 10/08 (3) Hypothyroidism: Plan: Currently off levothyroxine. TSH is normal. Free T4 level normal (4) Dysphagia: Plan: 1 episode of choking in the evening of 10/05 no residual effects from it. Will to continue surveillance to see if the patient has any aspiration pneumonitis or pneumonia. Plan Placement proceedings underway. Family members are being petitioned to assume POA duties. placement is challenging Admission and Anticipated Discharge Date Admission Date: September 24, 2023 Subjective Patient has no new complaints. Review of Systems Review of Systems: All systems reviewed & are unremarkable except as noted in HPI & below Physical Exam Physical Exam: General: In no acute distress, stated age, malnourished, non-toxic appearing HEENT: Normocephalic, atraumatic Neuro: Alert and oriented to person and place Results & Data Results & Data Vital Signs (Past 12 Hours) Vital Signs Temp Pulse Resp BP BP Pulse Ox O2 Del Method 10/09/23 19:54 36.4 C L 67 18 103/60 98 Room Air 10/09/23 16:43 103/67 10/09/23 15:42 36.8 C 64 16 90/54 L 100 Room Air PG Care Time/CCT Total # of Minutes Spent Total Time Spent with Patient: Total time spent is greater than 50% in coordination of care (as documented) at patient's floor/unit and/or counseling patient: Coding Level of Care Code 71785 SUB INP/OBS CARE 2/35MIN Diagnoses Acute alteration in mental status R41.82 Total bilirubin, elevated R17 Hypothyroidism E03.9 Dysphagia R13.10
--- NOTE | 2023-10-10 21:18 | Hospitalist Progress Note ---
Date of Service October 10, 2023 Assessment & Plan (1) Acute alteration in mental status: Plan: Baseline dementia and disorientation. acute metabolic encephalopathy on admission secondary to UTI s/p treatment completed 5 days of parenteral Rocephin continue Supportive care (2) Total bilirubin, elevated: Plan: resolved, recheck 10/08 (3) Hypothyroidism: Plan: Currently off levothyroxine. TSH is normal. Free T4 level normal (4) Dysphagia: Plan: 1 episode of choking in the evening of 10/05 no residual effects from it. Will to continue surveillance to see if the patient has any aspiration pneumonitis or pneumonia. Plan Placement proceedings underway. Family members are being petitioned to assume POA duties. placement is challenging Admission and Anticipated Discharge Date Admission Date: September 24, 2023 Subjective 77 yo female reports no new symptoms. Review of Systems Review of Systems: All systems reviewed & are unremarkable except as noted in HPI & below Physical Exam Physical Exam: General: In no acute distress, stated age, malnourished, non-toxic appearing HEENT: Normocephalic, atraumatic Neuro: Alert and oriented to person and place Results & Data Results & Data Vital Signs (Past 12 Hours) Vital Signs Temp Pulse Resp BP BP Pulse Ox O2 Del Method 10/10/23 19:42 36.6 C 73 18 120/70 97 Room Air 10/10/23 16:10 36.5 C 79 14 118/77 98 Room Air PG Care Time/CCT Total # of Minutes Spent Total Time Spent with Patient: Total time spent is greater than 50% in coordination of care (as documented) at patient's floor/unit and/or counseling patient: Coding Level of Care Code 29299 SUB INP/OBS CARE 1/25MIN Diagnoses Acute alteration in mental status R41.82 Total bilirubin, elevated R17 Hypothyroidism E03.9 Dysphagia R13.10
--- NOTE | 2023-10-11 22:47 | Hospitalist Progress Note ---
Date of Service October 11, 2023 Assessment & Plan (1) Acute alteration in mental status: Plan: Baseline dementia and disorientation. acute metabolic encephalopathy on admission secondary to UTI s/p treatment completed 5 days of parenteral Rocephin continue Supportive care (2) Total bilirubin, elevated: Plan: resolved, recheck 10/08 (3) Hypothyroidism: Plan: Currently off levothyroxine. TSH is normal. Free T4 level normal (4) Dysphagia: Plan: 1 episode of choking in the evening of 10/05 no residual effects from it. Will to continue surveillance to see if the patient has any aspiration pneumonitis or pneumonia. Plan Placement proceedings underway. Family members are being petitioned to assume POA duties. placement is challenging Admission and Anticipated Discharge Date Admission Date: September 24, 2023 Subjective 77 yo female reports no new symptoms. Review of Systems Review of Systems: All systems reviewed & are unremarkable except as noted in HPI & below Physical Exam Physical Exam: General: In no acute distress, stated age, malnourished, non-toxic appearing HEENT: Normocephalic, atraumatic Neuro: Alert and oriented to person and place Results & Data Results & Data Vital Signs (Past 12 Hours) Vital Signs Temp Pulse Resp BP BP Pulse Ox O2 Del Method 10/11/23 22:12 36.5 C 68 18 108/67 98 Room Air 10/11/23 22:06 36.6 C 72 18 110/72 96 Room Air 10/11/23 18:03 36.5 C 82 17 104/64 98 Room Air PG Care Time/CCT Total # of Minutes Spent Total Time Spent with Patient: Total time spent is greater than 50% in coordination of care (as documented) at patient's floor/unit and/or counseling patient: Coding Level of Care Code 51381 SUB INP/OBS CARE 1/25MIN Diagnoses Acute alteration in mental status R41.82 Total bilirubin, elevated R17 Hypothyroidism E03.9 Dysphagia R13.10
--- NOTE | 2023-10-12 22:18 | Hospitalist Progress Note ---
Date of Service October 12, 2023 Assessment & Plan (1) Acute alteration in mental status: Plan: Baseline dementia and disorientation. acute metabolic encephalopathy on admission secondary to UTI s/p treatment completed 5 days of parenteral Rocephin continue Supportive care (2) Total bilirubin, elevated: Plan: resolved, recheck 10/08 (3) Hypothyroidism: Plan: Currently off levothyroxine. TSH is normal. Free T4 level normal (4) Dysphagia: Plan: 1 episode of choking in the evening of 10/05 no residual effects from it. Will to continue surveillance to see if the patient has any aspiration pneumonitis or pneumonia. Plan Placement proceedings underway. Family members are being petitioned to assume POA duties. placement is challenging Admission and Anticipated Discharge Date Admission Date: September 24, 2023 Subjective Patient is sitting in chair. No complaints. Review of Systems Review of Systems: All systems reviewed & are unremarkable except as noted in HPI & below Physical Exam Physical Exam: General: In no acute distress, stated age, malnourished, non-toxic appearing HEENT: Normocephalic, atraumatic Neuro: Alert and oriented to person and place Results & Data Results & Data Vital Signs (Past 12 Hours) Vital Signs Temp Pulse Resp BP Pulse Ox O2 Del Method 10/12/23 19:43 36.7 C 73 18 100/64 98 Room Air 10/12/23 15:46 36.2 C L 70 18 91/53 L 99 Room Air PG Care Time/CCT Total # of Minutes Spent Total Time Spent with Patient: Total time spent is greater than 50% in coordination of care (as documented) at patient's floor/unit and/or counseling patient: Coding Level of Care Code 17685 SUB INP/OBS CARE 1/25MIN Diagnoses Acute alteration in mental status R41.82 Total bilirubin, elevated R17 Hypothyroidism E03.9 Dysphagia R13.10
--- NOTE | 2023-10-13 22:24 | Hospitalist Progress Note ---
Date of Service October 13, 2023 Assessment & Plan (1) Acute alteration in mental status: Plan: Baseline dementia and disorientation. acute metabolic encephalopathy on admission secondary to UTI s/p treatment completed 5 days of parenteral Rocephin continue Supportive care (2) Total bilirubin, elevated: Plan: resolved, recheck 10/08 (3) Hypothyroidism: Plan: Currently off levothyroxine. TSH is normal. Free T4 level normal (4) Dysphagia: Plan: 1 episode of choking in the evening of 10/05 no residual effects from it. Will to continue surveillance to see if the patient has any aspiration pneumonitis or pneumonia. Plan Placement proceedings underway. Family members are being petitioned to assume POA duties. placement is challenging Admission and Anticipated Discharge Date Admission Date: September 24, 2023 Subjective 77 yo female reports no new symptoms. Review of Systems Review of Systems: All systems reviewed & are unremarkable except as noted in HPI & below Physical Exam Physical Exam: General: In no acute distress, stated age, malnourished, non-toxic appearing HEENT: Normocephalic, atraumatic Neuro: Alert and oriented to person and place Results & Data Results & Data Vital Signs (Past 12 Hours) Vital Signs Temp Pulse Resp BP Pulse Ox O2 Del Method 10/13/23 20:34 36.6 C 72 18 118/72 95 Room Air 10/13/23 15:40 36.4 C L 79 16 123/81 97 Room Air PG Care Time/CCT Total # of Minutes Spent Total Time Spent with Patient: Total time spent is greater than 50% in coordination of care (as documented) at patient's floor/unit and/or counseling patient: Coding Level of Care Code 51133 SUB INP/OBS CARE 1/25MIN Diagnoses Acute alteration in mental status R41.82 Total bilirubin, elevated R17 Hypothyroidism E03.9 Dysphagia R13.10
--- NOTE | 2023-10-14 22:04 | Hospitalist Progress Note ---
Date of Service October 14, 2023 Assessment & Plan (1) Acute alteration in mental status: Plan: Baseline dementia and disorientation. acute metabolic encephalopathy on admission secondary to UTI s/p treatment completed 5 days of parenteral Rocephin continue Supportive care (2) Total bilirubin, elevated: Plan: resolved, recheck 10/08 (3) Hypothyroidism: Plan: Currently off levothyroxine. TSH is normal. Free T4 level normal (4) Dysphagia: Plan: 1 episode of choking in the evening of 10/05 no residual effects from it. Will to continue surveillance to see if the patient has any aspiration pneumonitis or pneumonia. Plan Placement proceedings underway. Family member (brother: Gordo) being petitioned to assume POA duties. placement is challenging Admission and Anticipated Discharge Date Admission Date: September 24, 2023 Subjective No new symptoms. Review of Systems Review of Systems: All systems reviewed & are unremarkable except as noted in HPI & below Physical Exam Physical Exam: General: In no acute distress, stated age, malnourished, non-toxic appearing HEENT: Normocephalic, atraumatic Neuro: Alert and oriented to person and place Results & Data Results & Data Vital Signs (Past 12 Hours) Vital Signs Temp Pulse Resp BP Pulse Ox O2 Del Method 10/14/23 19:34 36.6 C 76 16 113/68 97 Room Air 10/14/23 16:25 36.5 C 77 16 108/73 99 Room Air PG Care Time/CCT Total # of Minutes Spent Total Time Spent with Patient: Total time spent is greater than 50% in coordination of care (as documented) at patient's floor/unit and/or counseling patient: Coding Level of Care Code 80352 SUB INP/OBS CARE 1/25MIN Diagnoses Acute alteration in mental status R41.82 Total bilirubin, elevated R17 Hypothyroidism E03.9 Dysphagia R13.10
--- NOTE | 2023-10-15 10:19 | Hospitalist Progress Note ---
Date of Service October 15, 2023 Assessment & Plan (1) Acute alteration in mental status: Plan: Baseline dementia and disorientation. acute metabolic encephalopathy on admission secondary to UTI s/p treatment completed 5 days of parenteral Rocephin continue Supportive care (2) Total bilirubin, elevated: Plan: resolved, recheck 10/08 (3) Hypothyroidism: Plan: Currently off levothyroxine. TSH is normal. Free T4 level normal (4) Dysphagia: Plan: 1 episode of choking in the evening of 10/05 no residual effects from it. Will to continue surveillance to see if the patient has any aspiration pneumonitis or pneumonia. Plan Placement proceedings underway. Family member (brother: Gordo) being petitioned to assume POA duties. placement is challenging Admission and Anticipated Discharge Date Admission Date: September 24, 2023 Subjective Confused pleasant adjusted to situation no agitation determined today Physical Exam Physical Exam: pt is awake, pleasantly confused cardiac is regular lungs are clear no further chocking Results & Data Results & Data Vital Signs (Past 12 Hours) Vital Signs Temp Pulse Resp BP Pulse Ox O2 Del Method 10/15/23 07:38 97.5 F L 74 17 107/70 99 Room Air PG Care Time/CCT Total # of Minutes Spent Total Time Spent with Patient: Total time spent is greater than 50% in coordination of care (as documented) at patient's floor/unit and/or counseling patient: Coding Level of Care Code 87589 SUB INP/OBS CARE 1/25MIN Diagnoses Acute alteration in mental status R41.82 Total bilirubin, elevated R17 Hypothyroidism E03.9 Dysphagia R13.10
--- NOTE | 2023-10-16 16:10 | Hospitalist Progress Note ---
Date of Service October 16, 2023 Assessment & Plan (1) Acute alteration in mental status: Plan: Baseline dementia and disorientation. acute metabolic encephalopathy on admission, resolved, secondary to UTI s/p treatment completed 5 days of parenteral Rocephin continue Supportive care Patient's level of confusion prevents a safe disposition home without a supervised situation. (2) Total bilirubin, elevated: Plan: resolved, recheck 10/17 (3) Hypothyroidism: Plan: Currently off levothyroxine. TSH is normal. Free T4 level normal (4) Dysphagia: Plan: 1 episode of choking in the evening of 10/05 no residual effects from it. No additional episodes of choking have occurred Plan Placement proceedings underway. Family member (brother: Gordo) being petitioned to assume POA duties. placement is challenging Admission and Anticipated Discharge Date Admission Date: September 24, 2023 Subjective Confused pleasant adjusted to situation no agitation Wants to go home to see her cats Physical Exam Physical Exam: pt is awake, pleasantly confused cardiac is regular lungs are clear no further chocking Results & Data Results & Data Vital Signs (Past 12 Hours) Vital Signs Temp Pulse Resp BP Pulse Ox O2 Del Method 10/16/23 15:11 97.7 F 57 L 16 101/67 98 Room Air 10/16/23 07:44 97.5 F L 57 L 16 96/64 L 98 Room Air Laboratory Results CBC and competence metabolic panel ordered for 10/17/2023 PG Care Time/CCT Total # of Minutes Spent Total Time Spent with Patient: Total time spent is greater than 50% in coordination of care (as documented) at patient's floor/unit and/or counseling patient: Coding Level of Care Code 89927 SUB INP/OBS CARE 1/25MIN Diagnoses Acute alteration in mental status R41.82 Total bilirubin, elevated R17 Hypothyroidism E03.9 Dysphagia R13.10
[2023-10-16] MEDS: MULTIVITAMIN TAB PO SCH (23:44)
[2023-10-17 07:53] LABS: Basophils # (auto) 0.05 K/uL (0.00-0.20); Basophils % (auto) 0.8 %; Eosinophils # (auto) 0.12 K/uL (0.00-0.50); Hematocrit (blood only) 37.5 % (37.0-47.0); Hemoglobin 12.2 g/dl (12.0-16.0); Immature Granulocytes # (auto) 0.01 K/uL (0.01-0.20); Immature Granulocytes % (auto) 0.2 %; Lymphocytes # (auto) 1.06 K/uL (1.20-3.40); Lymphocytes % (auto) 17.9 %; Mean Corpuscular Hemoglobin 29.9 pg (25.0-34.0); Mean Corpuscular Hgb Conc 32.5 g/dL (32.0-36.0); Mean Corpuscular Volume 91.9 fL (80.0-100.0); Mean Platelet Volume 11.8 fL (9.4-12.4); Monocytes # (auto) 0.46 K/uL (0.11-0.59); Monocytes % (auto) 7.8 %; Neutrophils # (auto) 4.23 K/uL (1.40-6.50); Neutrophils % (auto) 71.3 %; Platelet Count 234 K/uL (130-400); RDW Coefficient of Variation 13.2 % (11.5-14.5); RDW Standard Deviation 45.1 fL (36.4-46.3); Red Blood Count 4.08 M/uL (4.20-5.40); White Blood Count 5.93 K/ul (4.8-10.8)
[2023-10-17 08:10] LABS: Albumin Globulin Ratio 1.9 (0.9-2); Albumin Level 4.3 gm/dl (3.4-5.0); BUN Creatinine Ratio 24.4 (10-20); Bilirubin,Total 2.3 mg/dl (0.2-1.0); Calcium 9.6 mg/dl (8.6-10.3); Est GFR (Non-African American) 61.2 ml/min; Globulin 2.3 gm/dl (2.5-4.0); Potassium 3.7 mmol/L (3.5-5.1); Total Protein 6.6 gm/dl (6.0-8.3)
--- NOTE | 2023-10-17 14:31 | Hospitalist Progress Note ---
Date of Service October 17, 2023 Assessment & Plan (1) Acute alteration in mental status: Plan: Baseline dementia and disorientation. acute metabolic encephalopathy on admission, resolved, secondary to UTI s/p treatment completed 5 days of parenteral Rocephin continue Supportive care Patient's level of confusion prevents a safe disposition home without a supervised situation. (2) Total bilirubin, elevated: Plan: resolved, recheck 10/17 remains elevated this is isolated without transaminase elevations or alkaline phosphatase elevation is likely may be more of a function of [place] syndrome (3) Hypothyroidism: Plan: Currently off levothyroxine. TSH is normal. Free T4 level normal (4) Dysphagia: Plan: 1 episode of choking in the evening of 10/05 no residual effects from it. No additional episodes of choking have occurred Plan Placement proceedings underway. Family member (brother: Gordo) being petitioned to assume POA duties. placement is challenging Admission and Anticipated Discharge Date Admission Date: September 24, 2023 Subjective Confused pleasant adjusted to situation no agitation Continues to say that she wants to go home to see her cats Physical Exam Physical Exam: pt is awake, pleasantly confused cardiac is regular lungs are clear The patient typically sleeping fully dressed in her close Results & Data Results & Data Vital Signs (Past 12 Hours) Vital Signs Temp Pulse Resp BP Pulse Ox O2 Del Method 10/17/23 07:36 97.5 F L 66 16 115/71 98 Room Air Laboratory Results Reviewed CBC reviewed comprehensive metabolic panel PG Care Time/CCT Total # of Minutes Spent Total Time Spent with Patient: Total time spent is greater than 50% in coordination of care (as documented) at patient's floor/unit and/or counseling patient: Coding Level of Care Code 25270 SUB INP/OBS CARE 1/25MIN Diagnoses Acute alteration in mental status R41.82 Total bilirubin, elevated R17 Hypothyroidism E03.9 Dysphagia R13.10
--- NOTE | 2023-10-18 13:20 | Hospitalist Progress Note ---
Date of Service October 18, 2023 Assessment & Plan (1) Acute alteration in mental status: Plan: Baseline dementia and disorientation. acute metabolic encephalopathy on admission, resolved, secondary to UTI s/p treatment completed 5 days of parenteral Rocephin continue Supportive care Patient's level of confusion prevents a safe disposition home without a supervised situation. (2) Total bilirubin, elevated: Plan: resolved, recheck 10/17 remains elevated this is isolated without transaminase elevations or alkaline phosphatase elevation is likely may be more of a function of [place] syndrome (3) Hypothyroidism: Plan: Currently off levothyroxine. TSH is normal. Free T4 level normal (4) Dysphagia: Plan: 1 episode of choking in the evening of 10/05 no residual effects from it. No additional episodes of choking have occurred Plan Placement proceedings underway. Family member (brother: Gordo) being petitioned to assume POA duties. placement is challenging Admission and Anticipated Discharge Date Admission Date: September 24, 2023 Subjective Confused pleasant adjusted to situation no agitation Patient is sleeping are closing on 10/18 no new changes on this date Continues to say that she wants to go home to see her cats Physical Exam Physical Exam: pt is awake, pleasantly confused cardiac is regular lungs are clear The patient typically sleeping fully dressed in her close Results & Data Results & Data Vital Signs (Past 12 Hours) Vital Signs Temp Pulse Resp BP Pulse Ox O2 Del Method 10/18/23 08:15 97.9 F 64 16 99/65 L 98 Room Air PG Care Time/CCT Total # of Minutes Spent Total Time Spent with Patient: Total time spent is greater than 50% in coordination of care (as documented) at patient's floor/unit and/or counseling patient: Coding Level of Care Code 84407 SUB INP/OBS CARE 1/25MIN Diagnoses Acute alteration in mental status R41.82 Total bilirubin, elevated R17 Hypothyroidism E03.9 Dysphagia R13.10
--- NOTE | 2023-10-19 17:53 | Hospitalist Progress Note ---
Date of Service October 19, 2023 Assessment & Plan (1) Acute alteration in mental status: Plan: Baseline dementia and disorientation. acute metabolic encephalopathy on admission, resolved, secondary to UTI s/p treatment completed 5 days of parenteral Rocephin continue Supportive care Patient's level of confusion prevents a safe disposition home without a supervised situation. Currently awaiting placement (2) Total bilirubin, elevated: Plan: resolved, recheck 10/17 remains elevated this is isolated without transaminase elevations or alkaline phosphatase elevation is likely may be more of a function of [place] syndrome Will check repeat LFTs in the morning. No abdominal pain, nausea, vomiting, diarrhea (3) Hypothyroidism: Plan: Currently off levothyroxine. TSH is normal. Free T4 level normal (4) Dysphagia: Plan: 1 episode of choking in the evening of 10/05 no residual effects from it. Patient does not remember this. No additional episodes of choking have occurred for discussion with nursing Plan Placement proceedings underway. Family member (brother: Gordo) being petitioned to assume POA duties. placement is challenging Admission and Anticipated Discharge Date Admission Date: September 24, 2023 Supervising Physician Co-Signing Physician Notes The patient was not seen by me. The chart was reviewed. Case discussed with JOSE L Ortiz. Agree with assessment and plan Subjective Attending: Patient seen and examined at bedside this morning. She continues to be pleasantly confused. When asked who the president is she said that she was present last week but she does not know who was present this week. When she is asked about the day of the week she is unclear. She does know the [place] is on October 19 but thinks that it is 2024. She is very cooperative and pleasant and talkative. She is also very cooperative with physical examination. She endorses no acute complaints. Review of Systems 2 Review of Systems: A total of 10 systems was reviewed and is negative other than as listed in the HPI Physical Exam 2 Physical Exam: GENERAL : No acute distress. Very pleasant EYES: No icterus, gaze conjugate NOSE: No evidence of epistaxis MOUTH: No lesions or candidiasis NECK: Supple LUNGS: CTA B/L, no wheezes, rales or rhonchi HEART: Regular, rate controlled ABDOMEN: Soft, NT, ND, BS Present EXTREMITIES: No LE edema, pedal pulses intact NEURO: Awake and alert. She is aware that she is in the hospital but does not know why. She thinks it is 2024. She does not know the day of the week. She does not know the human resources vice president. She is aware that she has 2 cats and that her aunt is caring for them while she is not home but she does not know why she has not home. When asked about her living condition, she states that she lives alone. She does state that she understands that she is not safe to go home since she does not have support but cannot reiterate this to me. Results & Data Results & Data Vital Signs (Past 12 Hours) Vital Signs Temp Pulse Resp BP Pulse Ox O2 Del Method 10/19/23 15:30 36.6 C 90 16 112/74 100 Room Air 10/19/23 14:46 36.8 C 57 L 16 118/61 99 Room Air 10/19/23 08:04 36.5 C 57 L 16 113/75 99 Room Air Laboratory Results 10/17/23 06:33 10/17/23 06:33 PG Care Time/CCT Total # of Minutes Spent Total Time Spent with Patient: Total time spent is greater than 50% in coordination of care (as documented) at patient's floor/unit and/or counseling patient: 15 minutes [id number] interaction with the patient Coding Level of Care Code 95434 SUB INP/OBS CARE 1/25MIN Diagnoses Acute alteration in mental status R41.82 Total bilirubin, elevated R17 Hypothyroidism E03.9 Dysphagia R13.10 Time Spent (min) 25 Comment 25 minutes including chart review and documentation
[2023-10-20] MEDS: FAMOTIDINE 20 MG TAB PO ONE (01:22)
[2023-10-20 07:54] LABS: Hematocrit (blood only) 39.1 % (37.0-47.0); Hemoglobin 13.3 g/dl (12.0-16.0); Mean Corpuscular Hemoglobin 30.2 pg (25.0-34.0); Mean Corpuscular Volume 88.7 fL (80.0-100.0); Mean Platelet Volume 11.7 fL (9.4-12.4); Platelet Count 285 K/uL (130-400); RDW Coefficient of Variation 13.2 % (11.5-14.5); RDW Standard Deviation 43.1 fL (36.4-46.3); Red Blood Count 4.41 M/uL (4.20-5.40); White Blood Count 6.36 K/ul (4.8-10.8)
[2023-10-20 08:10] LABS: Albumin Globulin Ratio 1.9 (0.9-2); Albumin Level 4.7 gm/dl (3.4-5.0); BUN Creatinine Ratio 22.9 (10-20); Bilirubin,Total 2.2 mg/dl (0.2-1.0); Calcium 9.9 mg/dl (8.6-10.3); Creatinine Clr Calc Pharmacy 44.4 ml/min; Est GFR (African American) 78.3 ml/min; Est GFR (Non-African American) 67.5 ml/min; Globulin 2.5 gm/dl (2.5-4.0); Potassium 3.8 mmol/L (3.5-5.1); Total Protein 7.2 gm/dl (6.0-8.3)
--- NOTE | 2023-10-20 15:57 | Hospitalist Progress Note ---
Date of Service October 20, 2023 Assessment & Plan (1) Acute alteration in mental status: Plan: Baseline dementia and disorientation. acute metabolic encephalopathy on admission, resolved, secondary to UTI s/p treatment completed 5 days of parenteral Rocephin continue Supportive care Patient's level of confusion prevents a safe disposition home without a supervised situation. Currently awaiting placement (2) Total bilirubin, elevated: Plan: resolved, recheck 10/17 remains elevated this is isolated without transaminase elevations or alkaline phosphatase elevation is likely may be more of a function of [place] syndrome Will check repeat LFTs in the morning. No abdominal pain, nausea, vomiting, diarrhea (3) Hypothyroidism: Plan: Currently off levothyroxine. TSH is normal. Free T4 level normal (4) Dysphagia: Plan: 1 episode of choking in the evening of 10/05 no residual effects from it. Patient does not remember this. No additional episodes of choking have occurred for discussion with nursing Plan Placement proceedings underway. Family member (brother: Gordo) being petitioned to assume POA duties. placement is challenging Admission and Anticipated Discharge Date Admission Date: September 24, 2023 Subjective Patient seen and examined at bedside this morning. She continues to be pleasantly confused. She is very cooperative and pleasant and talkative. She is also very cooperative and engaging She endorses no acute complaints. Physical Exam Physical Exam: pt is awake, pleasantly confused cardiac is regular lungs are clear The patient typically sleeping fully dressed in her clothes Results & Data Results & Data Vital Signs (Past 12 Hours) Vital Signs Temp Pulse Resp BP Pulse Ox O2 Del Method 10/20/23 06:16 97.7 F 85 16 135/82 99 Room Air Laboratory Results Reviewed CBC reviewed comprehensive metabolic panel PG Care Time/CCT Total # of Minutes Spent Total Time Spent with Patient: Total time spent is greater than 50% in coordination of care (as documented) at patient's floor/unit and/or counseling patient: Coding Level of Care Code 96781 SUB INP/OBS CARE 11/19MIN Diagnoses Acute alteration in mental status R41.82 Total bilirubin, elevated R17 Hypothyroidism E03.9 Dysphagia R13.10
--- NOTE | 2023-10-21 16:32 | Hospitalist Progress Note ---
Date of Service October 21, 2023 Assessment & Plan (1) Acute alteration in mental status: Plan: Baseline dementia and disorientation. acute metabolic encephalopathy on admission, resolved, secondary to UTI s/p treatment completed 5 days of parenteral Rocephin continue Supportive care Patient's level of confusion prevents a safe disposition home without a supervised situation. Currently awaiting placement (2) Total bilirubin, elevated: Plan: resolved, recheck 10/17 remains elevated this is isolated without transaminase elevations or alkaline phosphatase elevation is likely may be more of a function of [place] syndrome No abdominal pain, nausea, vomiting, diarrhea (3) Hypothyroidism: Plan: Currently off levothyroxine. TSH is normal. Free T4 level normal (4) Dysphagia: Plan: 1 episode of choking in the evening of 10/05 no residual effects from it. Patient does not remember this. No additional episodes of choking have occurred for discussion with nursing Plan Placement proceedings underway. Family member (brother: Gordo) being petitioned to assume POA duties. placement is challenging Admission and Anticipated Discharge Date Admission Date: September 24, 2023 Subjective Very little changes today today patient continues to be in her usual state 10/21/2023 Patient seen and examined at bedside this morning. She continues to be pleasantly confused. She is very cooperative and pleasant and talkative. She is also very cooperative and engaging She endorses no acute complaints. Physical Exam Physical Exam: pt is awake, pleasantly confused cardiac is regular lungs are clear The patient typically sleeping fully dressed in her clothes Results & Data Results & Data Vital Signs (Past 12 Hours) Vital Signs Temp Pulse Resp BP BP Pulse Ox O2 Del Method 10/21/23 15:31 97.5 F L 66 18 104/61 98 Room Air 10/21/23 06:53 98.1 F 81 16 112/68 95 Room Air PG Care Time/CCT Total # of Minutes Spent Total Time Spent with Patient: Total time spent is greater than 50% in coordination of care (as documented) at patient's floor/unit and/or counseling patient: Coding Level of Care Code 94434 SUB INP/OBS CARE 1/25MIN Diagnoses Acute alteration in mental status R41.82 Total bilirubin, elevated R17 Hypothyroidism E03.9 Dysphagia R13.10
--- NOTE | 2023-10-22 16:59 | Hospitalist Progress Note ---
Date of Service October 22, 2023 Assessment & Plan (1) Acute alteration in mental status: Plan: Baseline dementia and disorientation. acute metabolic encephalopathy on admission, resolved, secondary to UTI s/p treatment completed 5 days of parenteral Rocephin continue Supportive care Patient's level of confusion prevents a safe disposition home without a supervised situation. Currently awaiting placement, looking at [facility] awaiting poa paperwork (2) Total bilirubin, elevated: Plan: resolved, recheck 10/17 remains elevated this is isolated without transaminase elevations or alkaline phosphatase elevation is likely may be more of a function of [place] syndrome No abdominal pain, nausea, vomiting, diarrhea (3) Hypothyroidism: Plan: Currently off levothyroxine. TSH is normal. Free T4 level normal (4) Dysphagia: Plan: 1 episode of choking in the evening of 10/05 no residual effects from it. Patient does not remember this. No additional episodes of choking have occurred for discussion with nursing Plan Placement proceedings underway. Family member (brother: Gordo) being petitioned to assume POA duties. placement is challenging Admission and Anticipated Discharge Date Admission Date: September 24, 2023 Subjective Very little changes today patient continues to be in her usual state 10/22/2023 awaiting placement Patient seen and examined at bedside this morning. She continues to be pleasantly confused. She is very cooperative and pleasant and talkative. She is also very cooperative and engaging She endorses no acute complaints. Physical Exam Physical Exam: awake and pleasant cardiac is regular lungs are clear Results & Data Results & Data Vital Signs (Past 12 Hours) Vital Signs Temp Pulse Resp BP Pulse Ox O2 Del Method 10/22/23 15:06 98.2 F 88 18 101/67 10/22/23 10:15 Room Air 10/22/23 09:02 98.2 F 72 16 113/77 98 Room Air PG Care Time/CCT Total # of Minutes Spent Total Time Spent with Patient: Total time spent is greater than 50% in coordination of care (as documented) at patient's floor/unit and/or counseling patient: Coding Level of Care Code 29522 SUB INP/OBS CARE 1/25MIN Diagnoses Acute alteration in mental status R41.82 Total bilirubin, elevated R17 Hypothyroidism E03.9 Dysphagia R13.10
--- NOTE | 2023-10-23 15:34 | Hospitalist Progress Note ---
Date of Service October 23, 2023 Assessment & Plan (1) Acute alteration in mental status: Plan: Baseline dementia and disorientation. acute metabolic encephalopathy on admission, resolved, secondary to UTI s/p treatment completed 5 days of parenteral Rocephin continue Supportive care Patient's level of confusion prevents a safe disposition home without a supervised situation. Currently awaiting placement, looking at [facility] awaiting poa paperwork (2) Total bilirubin, elevated: Plan: resolved, recheck 10/17 remains elevated this is isolated without transaminase elevations or alkaline phosphatase elevation is likely may be more of a function of [place] syndrome No abdominal pain, nausea, vomiting, diarrhea (3) Hypothyroidism: Plan: Currently off levothyroxine. TSH is normal. Free T4 level normal (4) Dysphagia: Plan: 1 episode of choking in the evening of 10/05 no residual effects from it. Patient does not remember this. No additional episodes of choking have occurred for discussion with nursing Plan Placement proceedings underway. Family member (brother: Gordo) being petitioned to assume POA duties. placement is challenging Admission and Anticipated Discharge Date Admission Date: September 24, 2023 Subjective Very little changes today patient continues to be in her usual state 10/23/2023 awaiting placement Patient seen and examined at bedside this morning. She continues to be pleasantly confused. She is very cooperative and pleasant and talkative. She is also very cooperative and engaging She endorses no acute complaints. Physical Exam Physical Exam: awake and pleasant cardiac is regular lungs are clear Results & Data Results & Data Vital Signs (Past 12 Hours) Vital Signs Temp Pulse Resp BP Pulse Ox O2 Del Method 10/23/23 08:16 97.7 F 64 16 110/73 97 Room Air PG Care Time/CCT Total # of Minutes Spent Total Time Spent with Patient: Total time spent is greater than 50% in coordination of care (as documented) at patient's floor/unit and/or counseling patient: Coding Level of Care Code 34171 SUB INP/OBS CARE 11/19MIN Diagnoses Acute alteration in mental status R41.82 Total bilirubin, elevated R17 Hypothyroidism E03.9 Dysphagia R13.10
[2023-10-24] MEDS: MAGNESIUM OXIDE 400 MG TAB PO STA (12:27)
--- NOTE | 2023-10-24 18:27 | Hospitalist Progress Note ---
Date of Service October 24, 2023 Assessment & Plan (1) Acute alteration in mental status: Plan: Baseline dementia and disorientation. acute metabolic encephalopathy on admission, resolved, secondary to UTI s/p treatment completed 5 days of parenteral Rocephin continue Supportive care Patient's level of confusion prevents a safe disposition home without a supervised situation. Currently awaiting placement, looking at [facility] awaiting poa paperwork (2) Total bilirubin, elevated: Plan: resolved, recheck 10/17 remains elevated this is isolated without transaminase elevations or alkaline phosphatase elevation is likely may be more of a function of [place] syndrome No abdominal pain, nausea, vomiting, diarrhea (3) Hypothyroidism: Plan: Currently off levothyroxine. TSH is normal. Free T4 level normal (4) Dysphagia: Plan: 1 episode of choking in the evening of 10/05 no residual effects from it. Patient does not remember this. No additional episodes of choking have occurred for discussion with nursing Plan Placement proceedings underway. Family member (brother: Gordo) being petitioned to assume POA duties. placement is challenging Admission and Anticipated Discharge Date Admission Date: September 24, 2023 Subjective Patient reports feeling well. Physical Exam Physical Exam: General: In no acute distress, stated age, malnourished, non-toxic appearing HEENT: Normocephalic, atraumatic Neuro: Alert and oriented to person and place Results & Data Results & Data Vital Signs (Past 12 Hours) Vital Signs Temp Pulse Resp BP Pulse Ox O2 Del Method 10/24/23 07:29 36.5 C 69 16 111/70 97 Room Air PG Care Time/CCT Total # of Minutes Spent Total Time Spent with Patient: Total time spent is greater than 50% in coordination of care (as documented) at patient's floor/unit and/or counseling patient: Coding Level of Care Code 47652 SUB INP/OBS CARE 2/35MIN Diagnoses Acute alteration in mental status R41.82 Total bilirubin, elevated R17 Hypothyroidism E03.9 Dysphagia R13.10 Time Spent (min) 35 Comment chart review
--- NOTE | 2023-10-25 10:30 | Hospitalist Progress Note ---
Date of Service October 25, 2023 Assessment & Plan (1) Acute alteration in mental status: Plan: Baseline dementia and disorientation. acute metabolic encephalopathy on admission, resolved, secondary to UTI s/p treatment completed 5 days of parenteral Rocephin continue Supportive care Patient's level of confusion prevents a safe disposition home without a supervised situation. Currently awaiting placement, looking at [facility] awaiting poa paperwork (2) Total bilirubin, elevated: Plan: resolved, recheck 10/17 remains elevated this is isolated without transaminase elevations or alkaline phosphatase elevation is likely may be more of a function of [place] syndrome No abdominal pain, nausea, vomiting, diarrhea (3) Hypothyroidism: Plan: Currently off levothyroxine. TSH is normal. Free T4 level normal (4) Dysphagia: Plan: 1 episode of choking in the evening of 10/05 no residual effects from it. Patient does not remember this. No additional episodes of choking have occurred for discussion with nursing Plan Placement proceedings underway. Family member (brother: Gordo) being petitioned to assume POA duties. placement is challenging Admission and Anticipated Discharge Date Admission Date: September 24, 2023 Subjective 77 yo female reports no new symptoms. Review of Systems Review of Systems: All systems reviewed & are unremarkable except as noted in HPI & below Physical Exam Physical Exam: General: In no acute distress, stated age, malnourished, non-toxic appearing HEENT: Normocephalic, atraumatic Neuro: Alert and oriented to person and place Results & Data Results & Data Vital Signs (Past 12 Hours) Vital Signs Temp Pulse Resp BP Pulse Ox O2 Del Method 10/25/23 09:06 36.8 C 78 16 112/78 98 Room Air 10/24/23 22:30 36.3 C L 67 16 111/71 97 Room Air PG Care Time/CCT Total # of Minutes Spent Total Time Spent with Patient: Total time spent is greater than 50% in coordination of care (as documented) at patient's floor/unit and/or counseling patient: Coding Level of Care Code 20082 SUB INP/OBS CARE 1/25MIN Diagnoses Acute alteration in mental status R41.82 Total bilirubin, elevated R17 Hypothyroidism E03.9 Dysphagia R13.10
[2023-10-25] MEDS: MAGNESIUM OXIDE 400 MG TAB PO SCH (11:51)
--- NOTE | 2023-10-26 10:40 | Hospitalist Progress Note ---
Date of Service October 26, 2023 Assessment & Plan (1) Acute alteration in mental status: Plan: Baseline dementia and disorientation. -acute metabolic encephalopathy on admission, resolved, secondary to UTI s/p treatment completed 5 days of parenteral Rocephin - Patient's level of confusion prevents a safe disposition home without a supervised situation. - Currently awaiting placement, case management following, looking at [facility] brotherGordo (2) Total bilirubin, elevated: Plan: resolved, recheck 10/17 remains elevated this is isolated without transaminase elevations or alkaline phosphatase elevation is likely may be more of a function of [place] syndrome No abdominal pain, nausea, vomiting, diarrhea (3) Hypothyroidism: Plan: Currently off levothyroxine. TSH is normal. Free T4 level normal (4) Dysphagia: Plan: 1 episode of choking in the evening of 10/05 no residual effects from it. Patient does not remember this. No additional episodes of choking have occurred for discussion with nursing Plan Dispo: continued inpatient stay until safe placement, medically stable Admission and Anticipated Discharge Date Admission Date: September 24, 2023 Supervising Physician Co-Signing Physician Notes Attending Attestation - Chart reviewed, care plan d/w JOSE L Beltrán. I agree w/ the lyons components of her documentation. Filippo Grimm MD Subjective Patient ambulating in room. Very frustrated with her brother. No physical complaints. Continues to be confused, tells me its 2027. Physical Exam Physical Exam: General:thin, dressed in street clothes Resp: normal respiratory effort, lungs clear to auscultation CV: RRR, no murmur, Extremities: Moves all extremities, Results & Data Results & Data Vital Signs (Past 12 Hours) Vital Signs Temp Pulse Resp BP Pulse Ox O2 Del Method 10/26/23 08:45 36.4 C L 70 16 105/63 97 Room Air PG Care Time/CCT Total # of Minutes Spent Total Time Spent with Patient: Total time spent is greater than 50% in coordination of care (as documented) at patient's floor/unit and/or counseling patient: Coding Level of Care Code 63285 SUB INP/OBS CARE 1/25MIN Diagnoses Acute alteration in mental status R41.82 Total bilirubin, elevated R17 Hypothyroidism E03.9 Dysphagia R13.10
[2023-10-26] MEDS ORDERED: ACETAMINOPHEN 500 MG TAB PO PRN (17:17)
[2023-10-26] MEDS: MAGNESIUM OXIDE 400 MG TAB PO ONE (17:53)
--- NOTE | 2023-10-27 10:33 | Hospitalist Progress Note ---
Date of Service October 27, 2023 Assessment & Plan (1) Acute alteration in mental status: Plan: Baseline dementia and disorientation. -acute metabolic encephalopathy on admission, resolved, secondary to UTI s/p treatment completed 5 days of parenteral Rocephin - Patient's level of confusion prevents a safe disposition home without a supervised situation. - Currently awaiting placement, case management following, looking at [facility], NATASHA is brotherGordo (2) Total bilirubin, elevated: Plan: resolved, recheck 10/17 remains elevated this is isolated without transaminase elevations or alkaline phosphatase elevation is likely may be more of a function of [place] syndrome No abdominal pain, nausea, vomiting, diarrhea (3) Hypothyroidism: Plan: Currently off levothyroxine. TSH is normal. Free T4 level normal (4) Dysphagia: Plan: 1 episode of choking in the evening of 10/05 no residual effects from it. Patient does not remember this. No additional episodes of choking have occurred for discussion with nursing Plan Dispo: continued inpatient stay until safe placement, medically stable Admission and Anticipated Discharge Date Admission Date: September 24, 2023 Supervising Physician Co-Signing Physician Notes Attending Attestation - Chart reviewed, care plan d/w JOSE L Beltrán. I agree w/ the lyons components of her documentation. Filippo Grimm MD Subjective 1010 Patient ambulating in room. Tells me she thinks she is devloping a cold, having some nasal congestion. Denies cough or SOB. Requesting Vit C. Getting restless in her room, states she spends alot of time reading and going on long walks at home. Review of Systems Review of Systems: All systems reviewed & are unremarkable except as noted in Subjective Physical Exam Physical Exam: General:thin, dressed in street clothes Resp: normal respiratory effort, lungs clear to auscultation CV: RRR, no murmur, Extremities: Moves all extremities, Results & Data Results & Data Vital Signs (Past 12 Hours) Vital Signs Temp Pulse Resp BP Pulse Ox O2 Del Method 10/27/23 07:58 36.5 C 71 16 106/66 98 Room Air PG Care Time/CCT Total # of Minutes Spent Total Time Spent with Patient: Total time spent is greater than 50% in coordination of care (as documented) at patient's floor/unit and/or counseling patient: Coding Level of Care Code 44294 SUB INP/OBS CARE 11/19MIN Diagnoses Acute alteration in mental status R41.82 Total bilirubin, elevated R17 Hypothyroidism E03.9 Dysphagia R13.10
[2023-10-27] MEDS: ASCORBIC ACID 500 MG TAB PO SCH (11:14)
--- NOTE | 2023-10-28 14:09 | Hospitalist Progress Note ---
Date of Service October 28, 2023 Assessment & Plan (1) Acute alteration in mental status: Plan: Baseline dementia and disorientation. -acute metabolic encephalopathy on admission, resolved, secondary to UTI s/p treatment completed 5 days of parenteral Rocephin - Patient's level of confusion prevents a safe disposition home without a supervised situation. - Currently awaiting placement, case management following, looking at [facility], NATASHA is brotherGordo (2) Total bilirubin, elevated: Plan: resolved, recheck 10/17 remains elevated this is isolated without transaminase elevations or alkaline phosphatase elevation is likely may be more of a function of [place] syndrome No abdominal pain, nausea, vomiting, diarrhea (3) Hypothyroidism: Plan: Currently off levothyroxine. TSH is normal. Free T4 level normal (4) Dysphagia: Plan: 1 episode of choking in the evening of 10/05 no residual effects from it. Patient does not remember this. No additional episodes of choking have occurred for discussion with nursing Plan Dispo: continued inpatient stay until safe placement, medically stable Admission and Anticipated Discharge Date Admission Date: September 24, 2023 Supervising Physician Co-Signing Physician Notes Attending Attestation - Chart reviewed, care plan d/w JOSE L Beltrán. I agree w/ the lyons components of her documentation. Filippo Grimm MD Subjective Patient seen ambulating in room, dressed in street clothes. Feels like Vitamin C is helping her cold. Tells me her ?aunt may come visit her today. Denies physical complaints. Review of Systems Review of Systems: All systems reviewed & are unremarkable except as noted in Subjective Physical Exam Physical Exam: General:thin, dressed in street clothes Resp: normal respiratory effort, lungs clear to auscultation CV: RRR, no murmur, Extremities: Moves all extremities, Results & Data Results & Data Vital Signs (Past 12 Hours) Vital Signs Temp Pulse Resp BP Pulse Ox O2 Del Method 10/28/23 08:20 36.7 C 70 16 99/67 L 98 Room Air PG Care Time/CCT Total # of Minutes Spent Total Time Spent with Patient: Total time spent is greater than 50% in coordination of care (as documented) at patient's floor/unit and/or counseling patient: Coding Level of Care Code 57895 SUB INP/OBS CARE 11/19MIN Diagnoses Acute alteration in mental status R41.82 Total bilirubin, elevated R17 Hypothyroidism E03.9 Dysphagia R13.10
--- NOTE | 2023-10-29 14:19 | Hospitalist Progress Note ---
Date of Service October 29, 2023 Assessment & Plan (1) Acute alteration in mental status: Plan: Baseline dementia and disorientation. -acute metabolic encephalopathy on admission, resolved, secondary to UTI s/p treatment completed 5 days of parenteral Rocephin - Patient's level of confusion prevents a safe disposition home without a supervised situation. - Currently awaiting placement, case management following, looking at [facility] is brotherGordo (2) Total bilirubin, elevated: Plan: resolved, recheck 10/17 remains elevated this is isolated without transaminase elevations or alkaline phosphatase elevation is likely may be more of a function of [place] syndrome No abdominal pain, nausea, vomiting, diarrhea (3) Hypothyroidism: Plan: Currently off levothyroxine. TSH is normal. Free T4 level normal (4) Dysphagia: Plan: 1 episode of choking in the evening of 10/05 no residual effects from it. Patient does not remember this. No additional episodes of choking have occurred for discussion with nursing Plan Dispo: continued inpatient stay until safe placement, medically stable Admission and Anticipated Discharge Date Admission Date: September 24, 2023 Supervising Physician Co-Signing Physician Notes Attending Attestation - Chart reviewed, care plan d/w JOSE L Beltrán. I agree w/ the lyons components of her documentation. Filippo Grimm MD Subjective Patient seen lying in bed, continues to be dressed in street clothes. Pleased as someone found a new book for her to read. No acute complaints. Review of Systems Review of Systems: All systems reviewed & are unremarkable except as noted in Subjective Physical Exam Physical Exam: General:thin, dressed in street clothes Resp: normal respiratory effort, lungs clear to auscultation CV: RRR, no murmur, Extremities: Moves all extremities, Results & Data Results & Data Vital Signs (Past 12 Hours) Vital Signs Temp Pulse Resp BP Pulse Ox O2 Del Method 10/29/23 07:27 36.5 C 84 16 110/70 95 Room Air PG Care Time/CCT Total # of Minutes Spent Total Time Spent with Patient: Total time spent is greater than 50% in coordination of care (as documented) at patient's floor/unit and/or counseling patient: Coding Level of Care Code 81833 SUB INP/OBS CARE 25MIN Diagnoses Acute alteration in mental status R41.82 Total bilirubin, elevated R17 Hypothyroidism E03.9 Dysphagia R13.10
--- NOTE | 2023-10-30 14:29 | Hospitalist Progress Note ---
Date of Service October 30, 2023 Assessment & Plan (1) Acute alteration in mental status: Plan: Baseline dementia and disorientation. -acute metabolic encephalopathy on admission, resolved, secondary to UTI s/p treatment completed 5 days of parenteral Rocephin - Patient's level of confusion prevents a safe disposition home without a supervised situation. - Currently awaiting placement, case management following, looking at [facility] ram[facility] is brotherGordo (2) Total bilirubin, elevated: Plan: resolved, recheck 10/17 remains elevated this is isolated without transaminase elevations or alkaline phosphatase elevation is likely may be more of a function of [place] syndrome No abdominal pain, nausea, vomiting, diarrhea (3) Hypothyroidism: Plan: Currently off levothyroxine. TSH is normal. Free T4 level normal (4) Dysphagia: Plan: 1 episode of choking in the evening of 10/05 no residual effects from it. Patient does not remember this. No additional episodes of choking have occurred for discussion with nursing Plan Dispo: continued inpatient stay until safe placement, medically stable Admission and Anticipated Discharge Date Admission Date: September 24, 2023 Supervising Physician Co-Signing Physician Notes Attending Attestation - Chart reviewed, care plan d/w JOSE L Beltrán. I agree w/ the lyons components of her documentation. Filippo Grimm MD Subjective patient seen sitting in chair. Continues to be pleasant, happy because the physical education aide found a new book for her to read. Tells me its 1951. Denies any physical complaints at this time. Review of Systems Review of Systems: Unobtainable due to cognitive status Physical Exam Physical Exam: General:thin, dressed in street clothes Resp: normal respiratory effort, lungs clear to auscultation CV: RRR, no murmur, Extremities: Moves all extremities, Results & Data Results & Data Vital Signs (Past 12 Hours) Vital Signs Temp Pulse Resp BP Pulse Ox O2 Del Method 10/30/23 07:58 36.6 C 60 16 99/60 L 98 Room Air PG Care Time/CCT Total # of Minutes Spent Total Time Spent with Patient: Total time spent is greater than 50% in coordination of care (as documented) at patient's floor/unit and/or counseling patient: Coding Level of Care Code 88364 SUB INP/OBS CARE 11/19MIN Diagnoses Acute alteration in mental status R41.82 Total bilirubin, elevated R17 Hypothyroidism E03.9 Dysphagia R13.10
--- NOTE | 2023-10-31 13:22 | Hospitalist Progress Note ---
Date of Service October 31, 2023 Assessment & Plan (1) Acute alteration in mental status: Plan: Baseline dementia and disorientation. -acute metabolic encephalopathy on admission, resolved, secondary to UTI s/p treatment completed 5 days of parenteral Rocephin - Patient's level of confusion prevents a safe disposition home without a supervised situation. - Currently awaiting placement, case management following, looking at [facility], NATASHA is brotherGordo (2) Total bilirubin, elevated: Plan: resolved, recheck 10/17 remains elevated this is isolated without transaminase elevations or alkaline phosphatase elevation is likely may be more of a function of [place] syndrome No abdominal pain, nausea, vomiting, diarrhea (3) Hypothyroidism: Plan: Currently off levothyroxine. TSH is normal. Free T4 level normal (4) Dysphagia: Plan: 1 episode of choking in the evening of 10/05 no residual effects from it. Patient does not remember this. No additional episodes of choking have occurred for discussion with nursing Plan Dispo: continued inpatient stay until safe placement, medically stable Admission and Anticipated Discharge Date Admission Date: September 24, 2023 Supervising Physician Co-Signing Physician Notes Attending Attestation - Chart reviewed, care plan d/w JOSE L Beltrán. I agree w/ the lyons components of her documentation. Filippo Grimm MD Subjective Patient seen ambulating in the room. Reports feeling well today however cannot locate her toothbrush. Does correctly tell me that is the year 2023. Sinus congestion is improving. No other complaints. Review of Systems Review of Systems: All systems reviewed & are unremarkable except as noted in Subjective Physical Exam Physical Exam: General:thin, dressed in street clothes Resp: normal respiratory effort, lungs clear to auscultation CV: RRR, no murmur, Extremities: Moves all extremities, Results & Data Results & Data Vital Signs (Past 12 Hours) Vital Signs Temp Pulse Resp BP Pulse Ox O2 Del Method 10/31/23 08:58 36.4 C L 72 16 101/66 96 Room Air PG Care Time/CCT Total # of Minutes Spent Total Time Spent with Patient: Total time spent is greater than 50% in coordination of care (as documented) at patient's floor/unit and/or counseling patient: Coding Level of Care Code 43265 SUB INP/OBS CARE 25MIN Diagnoses Acute alteration in mental status R41.82 Total bilirubin, elevated R17 Hypothyroidism E03.9 Dysphagia R13.10
--- NOTE | 2023-11-01 12:47 | Hospitalist Progress Note ---
Date of Service November 01, 2023 Assessment & Plan (1) Acute alteration in mental status: Plan: Baseline dementia and disorientation. -acute metabolic encephalopathy on admission, resolved, secondary to UTI s/p treatment completed 5 days of parenteral Rocephin - Patient's level of confusion prevents a safe disposition home without a supervised situation. - Currently awaiting placement, case management following, looking at [facility], NATASHA is brotherGordo (2) Total bilirubin, elevated: Plan: resolved, recheck 10/17 remains elevated this is isolated without transaminase elevations or alkaline phosphatase elevation is likely may be more of a function of [place] syndrome No abdominal pain, nausea, vomiting, diarrhea (3) Hypothyroidism: Plan: Currently off levothyroxine. TSH is normal. Free T4 level normal (4) Dysphagia: Plan: 1 episode of choking in the evening of 10/05 no residual effects from it. Patient does not remember this. No additional episodes of choking have occurred for discussion with nursing Plan Dispo: continued inpatient stay until safe placement, medically stable Admission and Anticipated Discharge Date Admission Date: September 24, 2023 Supervising Physician Co-Signing Physician Notes Attending Attestation - Chart reviewed, care plan d/w JOSE L Beltrán. I agree w/ the lyons components of her documentation. Social work assisting with her disposition. Filippo Grimm MD Subjective patient ambulating in room, continues to be pleasantly confused. Today is little bit more emotional about having to stay in the hospital, her passing, and missing her dog. However she is redirectable. No acute complaints at this time Physical Exam Physical Exam: General:thin, dressed in street clothes Resp: normal respiratory effort, lungs clear to auscultation CV: RRR, no murmur, Extremities: Moves all extremities, Results & Data Results & Data Vital Signs (Past 12 Hours) Vital Signs Temp Pulse Resp BP Pulse Ox O2 Del Method 11/01/23 08:15 36.3 C L 62 16 105/70 99 Room Air PG Care Time/CCT Total # of Minutes Spent Total Time Spent with Patient: Total time spent is greater than 50% in coordination of care (as documented) at patient's floor/unit and/or counseling patient: Coding Level of Care Code 56669 SUB INP/OBS CARE 25MIN Diagnoses Acute alteration in mental status R41.82 Total bilirubin, elevated R17 Hypothyroidism E03.9 Dysphagia R13.10
--- NOTE | 2023-11-02 12:35 | Hospitalist Progress Note ---
Date of Service November 02, 2023 Assessment & Plan (1) Acute alteration in mental status: Plan: Baseline dementia and disorientation. -acute metabolic encephalopathy on admission, resolved, secondary to UTI s/p treatment completed 5 days of parenteral Rocephin - Patient's level of confusion prevents a safe disposition home without a supervised situation. - Currently awaiting placement, case management following, [facility], NATASHA is brotherGordo (2) Total bilirubin, elevated: Plan: resolved, recheck 10/17 remains elevated this is isolated without transaminase elevations or alkaline phosphatase elevation is likely may be more of a function of [place] syndrome No abdominal pain, nausea, vomiting, diarrhea (3) Hypothyroidism: Plan: Currently off levothyroxine. TSH is normal. Free T4 level normal (4) Dysphagia: Plan: 1 episode of choking in the evening of 10/05 no residual effects from it. Patient does not remember this. No additional episodes of choking have occurred for discussion with nursing Plan Dispo: continued inpatient stay until safe placement, medically stable Admission and Anticipated Discharge Date Admission Date: September 24, 2023 Supervising Physician Co-Signing Physician Notes Attending Attestation - Chart reviewed, care plan d/w JOSE L Beltrán. I agree w/ the lyons components of her documentation. Social work assisting with her disposition. Of note - mild bilirubin elevation is chronic dating back several years. Direct bilirubin fraction is normal. This is suggestive of Gilbert's syndrome. I cannot find any imaging of her liver, however. Will need to look in old records pre-dating [place]. Filippo Grimm MD Subjective Patient seen sitting on the edge of bed eating lunch. continues to be pleasantly confused. No acute physical concerns today. Review of Systems Review of Systems: All systems reviewed & are unremarkable except as noted in Subjective Physical Exam Physical Exam: General:thin, dressed in street clothes Resp: normal respiratory effort, lungs clear to auscultation CV: RRR, no murmur, Extremities: Moves all extremities, Results & Data Results & Data Vital Signs (Past 12 Hours) Vital Signs Temp Pulse Resp BP Pulse Ox O2 Del Method 11/02/23 08:18 36.7 C 64 18 104/65 98 Room Air PG Care Time/CCT Total # of Minutes Spent Total Time Spent with Patient: Total time spent is greater than 50% in coordination of care (as documented) at patient's floor/unit and/or counseling patient: Coding Level of Care Code 92391 SUB INP/OBS CARE Diagnoses Acute alteration in mental status R41.82 Total bilirubin, elevated R17 Hypothyroidism E03.9 Dysphagia R13.10
[2023-11-02] MEDS: MAGNESIUM OXIDE 400 MG TAB PO ONE (16:11)
--- NOTE | 2023-11-03 14:53 | Hospitalist Progress Note ---
Date of Service November 03, 2023 Assessment & Plan (1) Acute alteration in mental status: Plan: Acute metabolic encephalopathy present on admission. Now resolved. She is back to her baseline status with chronic dementia. (2) UTI (urinary tract infection): Plan: Present on admission. E. coli isolated. She has completed her treatment. (3) Total bilirubin, elevated: Plan: Suspected [place] syndrome. No intervention necessary at this time. (4) Hypothyroidism: Plan: Stable. Continue thyroid replacement therapy (5) Dysphagia: Plan: 1 episode of choking earlier this admission. No recurrence. Supportive care. Plan Case management is pursuing long-term care placement. Admission and Anticipated Discharge Date Admission Date: September 24, 2023 Subjective Alert and pleasant. No acute distress. No new problems. Review of Systems 2 Review of Systems: Constitutional-no fever or chills ENT-no blurred vision, no double vision, no epistaxis, no sore throat Respiratory-no cough, no wheezing, no shortness of breath Cardiac-no palpitations, no chest pain, no syncope GI-no nausea, vomiting, diarrhea, melena, hematochezia -no urinary retention, no urinary incontinence, no dysuria, no hematuria Musculoskeletal-no joint pain, no muscle tenderness Skin-no bruising, no rashes, no pruritus Neuro-no isolated weakness, no paresthesia, no weakness Psych-no depression, no anxiety Physical Exam 2 Physical Exam: General-alert and oriented x1, no fever, no chills HEENT-head atraumatic and normocephalic, pupils equal and reactive to light, extraocular muscles intact Neck-no lymphadenopathy or thyromegaly, trachea midline Chest-clear to auscultation percussion. No rales wheezing or rhonchi Cardiac-regular rate and rhythm, normal S1 and S2 Abdomen-normal bowel sounds, nontender, no hepatosplenomegaly Extremities-no cyanosis, clubbing, or edema Neuro-cranial nerves II through XII intact, motor and sensory function within normal limits, strength symmetrical, no focal deficits Psych-normal affect, normal mood Results & Data Results & Data Vital Signs (Past 12 Hours) Vital Signs Temp Pulse Resp BP Pulse Ox O2 Del Method 11/03/23 08:00 36.5 C 68 16 102/67 99 Room Air 11/03/23 07:59 Room Air Laboratory Results 10/20/23 06:57 10/20/23 06:57 PG Care Time/CCT Total # of Minutes Spent Total Time Spent with Patient: Total time spent is greater than 50% in coordination of care (as documented) at patient's floor/unit and/or counseling patient: Coding Level of Care Code 56777 SUB INP/OBS CARE 2/35MIN Diagnoses Acute alteration in mental status R41.82 UTI (urinary tract infection) N39.0 Total bilirubin, elevated R17 Hypothyroidism E03.9 Dysphagia R13.10
[2023-11-04] MEDS: LEVOTHYROXINE SODIUM 25 MCG TABLET PO SCH (07:30)
--- NOTE | 2023-11-04 08:37 | Hospitalist Progress Note ---
Date of Service November 04, 2023 Assessment & Plan (1) Acute alteration in mental status: Plan: Baseline dementia and disorientation. -acute metabolic encephalopathy on admission, resolved, secondary to UTI s/p treatment completed 5 days of parenteral Rocephin - Patient's level of confusion prevents a safe disposition home without a supervised situation. - Currently awaiting placement, case management following, looking at [facility], NATASHA is brother, Gordo (patient stated he was not to make decisions but prior selection unable to have capacity and CM following/working w/ brother Gordo. Hopefully having bed at [facility] this week once paperwork complete/finalized) (2) Total bilirubin, elevated: Plan: resolved, recheck 10/17 remains elevated this is isolated without transaminase elevations or alkaline phosphatase elevation is likely may be more of a function of [place] syndrome No abdominal pain, nausea, vomiting, diarrhea (3) Hypothyroidism: Plan: Currently off levothyroxine. TSH is normal. Free T4 level normal (4) Dysphagia: Plan: 1 episode of choking in the evening of 10/05 no residual effects from it. Patient does not remember this. No additional episodes of choking have occurred for discussion with nursing Plan Dispo: continued inpatient stay until safe placement, medically stable Admission and Anticipated Discharge Date Admission Date: September 24, 2023 Supervising Physician Co-Signing Physician Notes The patient was not seen by me. The chart was reviewed. Case discussed with JOSE L Gar. Agree with assessment and plan Subjective Eval this morning, making her bed. She notes people wanting to be helpful now that she has money. No acute issues. "finished" her book, but last several pages missing/ripped out. Working on placement. Physical Exam Physical Exam: General- 77 female making her bed, walking around room, NAD, alert/oriented to person, cooperative Head atraumatic, normocephalic resp even/unlabored, no w/c/r, on room air cv; RRR, no pitting edema gi: +bs, soft/NT MSK/Neuro; non focal, ambulating in the room without difficulty psych: alert/oriented to person/place, not event/times at times but pleasant/cooperative Results & Data Results & Data Vital Signs (Past 12 Hours) Vital Signs Temp Pulse Resp BP Pulse Ox O2 Del Method 11/04/23 08:03 36.5 C 60 16 109/71 96 Room Air 11/04/23 08:00 Room Air PG Care Time/CCT Total # of Minutes Spent Total Time Spent with Patient: Total time spent is greater than 50% in coordination of care (as documented) at patient's floor/unit and/or counseling patient: Coding Level of Care Code 56004 SUB INP/OBS CARE 1/25MIN Diagnoses Acute alteration in mental status R41.82 Total bilirubin, elevated R17 Hypothyroidism E03.9 Dysphagia R13.10
--- NOTE | 2023-11-05 07:57 | Hospitalist Progress Note ---
Date of Service November 05, 2023 Assessment & Plan (1) Acute alteration in mental status: Plan: Baseline dementia and disorientation. -acute metabolic encephalopathy on admission, resolved, secondary to UTI s/p treatment completed 5 days of parenteral Rocephin - Patient's level of confusion prevents a safe disposition home without a supervised situation. - Currently awaiting placement, case management following, looking at [facility], NATASHA is brother, Gordo (patient stated he was not to make decisions but prior selection unable to have capacity and CM following/working w/ brother Gordo. Hopefully having bed at [facility] this week once paperwork complete/finalized) (2) Total bilirubin, elevated: Plan: resolved, recheck 10/17 remains elevated this is isolated without transaminase elevations or alkaline phosphatase elevation is likely may be more of a function of [place] syndrome No abdominal pain, nausea, vomiting, diarrhea (3) Hypothyroidism: Plan: Currently off levothyroxine. TSH is normal. Free T4 level normal (4) Dysphagia: Plan: 1 episode of choking in the evening of 10/05 no residual effects from it. Patient does not remember this. No additional episodes of choking have occurred for discussion with nursing Plan Dispo: continued inpatient stay until safe placement, medically stable Admission and Anticipated Discharge Date Admission Date: September 24, 2023 Supervising Physician Co-Signing Physician Notes The patient was not seen by me. The chart was reviewed. Case discussed with JOSE L Gar. Agree with assessment and plan Subjective eval this morning, resting in bed. no acute events ambulating with staff awaiting placement Physical Exam Physical Exam: General- 77 female resting in bed, NAD Head atraumatic, normocephalic resp even/unlabored, no w/c/r, on room air cv; RRR, no pitting edema gi: +bs, soft/NT MSK/Neuro; non focal, no slurred speech/facial droop psych: alert/oriented to person/place, not event/times at times but pleasant/cooperative PG Care Time/CCT Total # of Minutes Spent Total Time Spent with Patient: Total time spent is greater than 50% in coordination of care (as documented) at patient's floor/unit and/or counseling patient: Coding Level of Care Code 34061 SUB INP/OBS CARE 1/25MIN Diagnoses Acute alteration in mental status R41.82 Total bilirubin, elevated R17 Hypothyroidism E03.9 Dysphagia R13.10
[2023-11-05] MEDS: SIMETHICONE 80 MG CHEW PO PRN (21:17)
--- NOTE | 2023-11-06 07:54 | Hospitalist Progress Note ---
Date of Service November 06, 2023 Assessment & Plan (1) Acute alteration in mental status: Plan: Baseline dementia and disorientation. -acute metabolic encephalopathy on admission, resolved, secondary to UTI s/p treatment completed 5 days of parenteral Rocephin - Patient's level of confusion prevents a safe disposition home without a supervised situation. - Currently awaiting placement, case management following, looking at [facility], NATASHA is brother, Gordo (patient stated he was not to make decisions but prior selection unable to have capacity and CM following/working w/ brother Gordo. Hopefully having bed at [facility] this week once paperwork complete/finalized) (2) Total bilirubin, elevated: Plan: resolved, recheck 10/17 remains elevated this is isolated without transaminase elevations or alkaline phosphatase elevation is likely may be more of a function of [place] syndrome No abdominal pain, nausea, vomiting, diarrhea (3) Hypothyroidism: Plan: Currently off levothyroxine. TSH is normal. Free T4 level normal (4) Dysphagia: Plan: 1 episode of choking in the evening of 10/05 no residual effects from it. Patient does not remember this. No additional episodes of choking have occurred for discussion with nursing Plan Dispo: continued inpatient stay until safe placement, medically stable Per CM, hopefully having bed at [facility] once "checklist" completed Admission and Anticipated Discharge Date Admission Date: September 24, 2023 Supervising Physician Co-Signing Physician Notes The patient was not seen by me. The chart was reviewed. Case discussed with JOSE L Gar. Agree with assessment and plan Subjective eval this morning, resting in bed. no events reported family working on checklist for [facility], hoping for bed within the week Physical Exam Physical Exam: General- 77 female resting in bed, NAD Head atraumatic, normocephalic resp even/unlabored, no cough/tachypnea, 98% on RA cv; RRR, no pitting edema gi: +bs, soft/NT MSK/Neuro; non focal, no slurred speech/facial droop psych: alert/oriented to person/place, not event/times at times but pleasant/co operative Results & Data Results & Data Vital Signs (Past 12 Hours) Vital Signs Temp Pulse Resp BP Pulse Ox O2 Del Method 11/06/23 07:20 36.5 C 68 16 128/75 98 Room Air PG Care Time/CCT Total # of Minutes Spent Total Time Spent with Patient: Total time spent is greater than 50% in coordination of care (as documented) at patient's floor/unit and/or counseling patient: Coding Level of Care Code 45508 SUB INP/OBS CARE 1/25MIN Diagnoses Acute alteration in mental status R41.82 Total bilirubin, elevated R17 Hypothyroidism E03.9 Dysphagia R13.10
[2023-11-06] MEDS ORDERED: bisacodyL 5 MG TABEC PO PRN (09:06)
[2023-11-06] MEDS ORDERED: GABAPENTIN 100 MG CAP PO ONE (09:15)
[2023-11-06] MEDS: BACLOFEN 10 MG TAB PO ONE (09:45)
[2023-11-06] MEDS: bisacodyL 10 MG SUPP PR STA (09:45)
[2023-11-06] MEDS ORDERED: GABAPENTIN 100 MG CAP PO SCH (14:00)
[2023-11-06] MEDS ORDERED: BACLOFEN 10 MG TAB PO SCH (21:00)
--- NOTE | 2023-11-07 08:02 | Hospitalist Progress Note ---
Date of Service November 07, 2023 Assessment & Plan (1) Acute alteration in mental status: Plan: Baseline dementia and disorientation. -acute metabolic encephalopathy on admission, resolved, secondary to UTI s/p treatment completed 5 days of parenteral Rocephin - Patient's level of confusion prevents a safe disposition home without a supervised situation. - Currently awaiting placement, case management following, looking at [facility], NATASHA is brother, Gordo (patient stated he was not to make decisions but prior selection unable to have capacity and CM following/working w/ brother Gordo. Hopefully having bed at [facility] this week once paperwork complete/finalized) *Patient did endorse some depression about ongoing inpatient stay/same food choices/book choices being children(has read others). Missing her dog at home who reportedly lost 5 lb, going to bathroom under the couch. She does endorse depression but has reactions to medications and not really wanting to try anything just yet. She does have increased sleep, anhedonia. Consult placed for [facility]. Denied any SI/HI but support provided. Will also work on getting her more reading supplies to keep occupied while inpatient. Melatonin ordered for sleep, pulled blinds and discussed w/ nursing to work on better sleep/wake schedules. (2) Total bilirubin, elevated: Plan: resolved, recheck 10/17 remains elevated this is isolated without transaminase elevations or alkaline phosphatase elevation is likely may be more of a function of [place] syndrome No abdominal pain, nausea, vomiting, diarrhea (3) Hypothyroidism: Plan: Currently off levothyroxine. TSH is normal. Free T4 level normal (4) Dysphagia: Plan: 1 episode of choking in the evening of 10/05 no residual effects from it. Patient does not remember this. No additional episodes of choking have occurred for discussion with nursing Plan Dispo: continued inpatient stay until safe placement, medically stable Per CM, hopefully having bed at [facility] once "checklist" completed [facility] consulted for depression/depressed affect/ongoing inpatient stay and support Admission and Anticipated Discharge Date Admission Date: September 24, 2023 Supervising Physician Co-Signing Physician Notes The patient was not seen by me. The chart was reviewed. Case discussed with JOSE L Gar. Agree with assessment and plan Subjective Eval this morning, had been sleeping a lot of yesterday. She reports she feels like that's all she does is sleep and be told what she can/can't do. She is kind of tired of the same foods day after day. Requested books but got childrens books. Will see about getting some additional books for reading. Discussed working on sleep/wake schedules. She is sensitive to medications but agreeable to melatonin. Blinds pulled up. Awaiting on placement. She is sad about being away from her dog who has reportedly lost ~5lb. Physical Exam Physical Exam: General- 77 female resting in bed, NAD, depressed affect, not well groomed/poor hygiene Head atraumatic, normocephalic resp even/unlabored, no cough/tachypnea, 98% on RA cv; RRR, no pitting edema gi: +bs, soft/NT MSK/Neuro; non focal, no slurred speech/facial droop psych: alert/oriented to person/place, not event/times at times but pleasant/cooperative depressed/flat affect, +endorses being depressed being in hospital still/same food choices. No SI/HI ideation noted PG Care Time/CCT Total # of Minutes Spent Total Time Spent with Patient: Total time spent is greater than 50% in coordination of care (as documented) at patient's floor/unit and/or counseling patient: Coding Level of Care Code 90084 SUB INP/OBS CARE 2/35MIN Diagnoses Acute alteration in mental status R41.82 Total bilirubin, elevated R17 Hypothyroidism E03.9 Dysphagia R13.10
[2023-11-07] MEDS ORDERED: MELATONIN 3 MG TAB PO PRN (10:19)
--- NOTE | 2023-11-08 08:14 | Hospitalist Progress Note ---
Date of Service November 08, 2023 Assessment & Plan (1) Acute alteration in mental status: Plan: Baseline dementia and disorientation. -acute metabolic encephalopathy on admission, resolved, secondary to UTI s/p treatment completed 5 days of parenteral Rocephin - Patient's level of confusion prevents a safe disposition home without a supervised situation. - Currently awaiting placement, case management following, looking at [facility], NATASHA is brother, Gordo (patient stated he was not to make decisions but prior selection unable to have capacity and CM following/working w/ brother Gordo. Hopefully having bed at [facility] this week once paperwork complete/finalized) *Patient did endorse some depression about ongoing inpatient stay/same food choices/book choices being children(has read others). Missing her dog at home who reportedly lost 5 lb, going to bathroom under the couch. She does endorse depression but has reactions to medications and not really wanting to try anything just yet. She does have increased sleep, anhedonia. Consult placed for [facility]. Denied any SI/HI but support provided. Not yet seen 11/08 AM Will also work on getting her more reading supplies to keep occupied while inpatient. Melatonin ordered for sleep (didn't take last night), pulled blinds and discussed w/ nursing to work on better sleep/wake schedules. (2) Total bilirubin, elevated: Plan: resolved, recheck 10/17 remains elevated this is isolated without transaminase elevations or alkaline phosphatase elevation is likely may be more of a function of [place] syndrome No abdominal pain, nausea, vomiting, diarrhea (3) Hypothyroidism: Plan: Currently off levothyroxine. TSH is normal. Free T4 level normal (4) Dysphagia: Plan: 1 episode of choking in the evening of 10/05 no residual effects from it. Patient does not remember this. No additional episodes of choking have occurred for discussion with nursing Plan Dispo: continued inpatient stay until safe placement, medically stable Per CM, hopefully having bed at [facility] once "checklist" completed [facility] consulted for depression/depressed affect/ongoing inpatient stay and support Admission and Anticipated Discharge Date Admission Date: September 24, 2023 Supervising Physician Co-Signing Physician Notes The patient was not seen by me. The chart was reviewed. Case discussed with JOSE L Gar. Agree with assessment and plan Subjective no events reported overnight. [facility] consulted yesterday, reading material provided and will work on additional while inpatient/awaiting placement. support provided/sleep/wake schedules encouraged Physical Exam Physical Exam: General- 77 female resting in bed, NAD, depressed affect, not well groomed/poor hygiene Head atraumatic, normocephalic resp even/unlabored, no cough/tachypnea, 98% on RA cv; RRR, no pitting edema gi: +bs, soft/NT MSK/Neuro; non focal, no slurred speech/facial droop psych: alert/oriented to person/place, not event/times at times but pleasant/cooperative depressed/flat affect, +endorses being depressed being in hospital still/same food choices. No SI/HI ideation noted Results & Data Results & Data Vital Signs (Past 12 Hours) Vital Signs Temp Pulse Resp BP Pulse Ox O2 Del Method 11/08/23 08:10 36.6 C 74 18 101/67 98 Room Air PG Care Time/CCT Total # of Minutes Spent Total Time Spent with Patient: Total time spent is greater than 50% in coordination of care (as documented) at patient's floor/unit and/or counseling patient: Coding Level of Care Code 24208 SUB INP/OBS CARE 1/25MIN Diagnoses Acute alteration in mental status R41.82 Total bilirubin, elevated R17 Hypothyroidism E03.9 Dysphagia R13.10
--- NOTE | 2023-11-09 08:03 | Hospitalist Progress Note ---
Date of Service November 09, 2023 Assessment & Plan (1) Acute alteration in mental status: Plan: Baseline dementia and disorientation. -acute metabolic encephalopathy on admission, resolved, secondary to UTI s/p treatment completed 5 days of parenteral Rocephin - Patient's level of confusion prevents a safe disposition home without a supervised situation. - Currently awaiting placement, case management following, looking at [facility], NATASHA is brother, Gordo (patient stated he was not to make decisions but prior selection unable to have capacity and CM following/working w/ brother Gordo. Hopefully having bed at [facility] this week once paperwork complete/finalized) *Patient did endorse some depression about ongoing inpatient stay/same food choices/book choices being children(has read others). Missing her animal at home who reportedly lost 5 lb, going to bathroom under the couch. She does endorse depression but has reactions to medications and not really wanting to try anything just yet. She does have increased sleep, anhedonia--> Consult placed for U liason. Has been see by psych earlier in inpatient stay. Currently denied any SI/HI, support provided. Not yet seen 1/15 AM as was sleeping this weekend but will hopefully be seen today. Provided additional reading material (likes non-fiction to note however) while inpatient. Maintain wake/sleep schedules as suspect worsening her depresion w/ ongoing inpatient stay. Hopefully having bed at [facility] this week if paperwork completed (2) Total bilirubin, elevated: Plan: resolved, recheck 10/17 remains elevated this is isolated without transaminase elevations or alkaline phosphatase elevation is likely may be more of a function of [place] syndrome No abdominal pain, nausea, vomiting, diarrhea (3) Hypothyroidism: Plan: Currently off levothyroxine. TSH is normal. Free T4 level normal (4) Dysphagia: Plan: 1 episode of choking in the evening of 10/05 no residual effects from it. Patient does not remember this. No additional episodes of choking have occurred for discussion with nursing Plan Dispo: continued inpatient stay until safe placement, medically stable Per CM, hopefully having bed at [facility] once "checklist" completed THIS UPCOMING WEEK?! U liason consulted for depression/depressed affect/ongoing inpatient stay and support Admission and Anticipated Discharge Date Admission Date: September 24, 2023 Subjective eval this morning, sleeping a lot. continued depressive symptoms while inpatient with continued inpatient stay. ongoing working on placement with CM but hopefully bed this upcoming week at [facility] if paperwork complete. U liason to [facility], was unable to this weekend due to patient sleeping but should be seen today. Physical Exam Physical Exam: General- 77 female resting in bed, NAD, depressed affect, not well groomed/poor hygiene Head atraumatic, normocephalic resp even/unlabored, no cough/tachypnea, 98% on RA cv; RRR, no pitting edema gi: +bs, soft/NT MSK/Neuro; non focal, no slurred speech/facial droop psych: alert/oriented to person/place, not event/times at times but pleasant/cooperative depressed/flat affect, +endorses being depressed being in hospital still/same food choices. No SI/HI ideation noted PG Care Time/CCT Total # of Minutes Spent Total Time Spent with Patient: Total time spent is greater than 50% in coordination of care (as documented) at patient's floor/unit and/or counseling patient: Coding Level of Care Code 06198 SUB INP/OBS CARE 1/25MIN Diagnoses Acute alteration in mental status R41.82 Total bilirubin, elevated R17 Hypothyroidism E03.9 Dysphagia R13.10
[2023-11-09] MEDS: THIAMINE HCL 100 MG TAB PO SCH (19:57)
--- NOTE | 2023-11-10 14:56 | Hospitalist Progress Note ---
Date of Service November 10, 2023 Assessment & Plan (1) Acute alteration in mental status: Plan: Baseline dementia and disorientation. -acute metabolic encephalopathy on admission, resolved, secondary to UTI s/p treatment completed 5 days of parenteral Rocephin - Patient's level of confusion prevents a safe disposition home without a supervised situation. - Currently awaiting placement, case management following, looking at [facility], NATASHA is brother, Gordo *Patient did endorse some depression about ongoing inpatient stay/same food choices/book choices being children(has read others). Missing her animal at home who reportedly lost 5 lb, going to bathroom under the couch. Reports has reactions to medications and not really wanting to try anything just yet. She does have increased sleep, anhedonia--> Consult placed for [facility] liason. Has been see by psych earlier in inpatient stay. Currently denied any SI/HI, support provided. Not yet seen Provided additional reading material (likes non-fiction) while inpatient. Maintain wake/sleep schedules as suspect worsening her depresion w/ ongoing inpatient stay. (2) Total bilirubin, elevated: Plan: resolved, recheck 10/17 remains elevated this is isolated without transaminase elevations or alkaline phosphatase elevation is likely may be more of a function of [place] syndrome No abdominal pain, nausea, vomiting, diarrhea (3) Hypothyroidism: Plan: Currently off levothyroxine. TSH is normal. Free T4 level normal (4) Dysphagia: Plan: 1 episode of choking in the evening of 10/05 no residual effects from it. Patient does not remember this. No additional episodes of choking have occurred for discussion with nursing Plan Dispo: continued inpatient stay until safe placement, medically stable Per CM, hopefully having bed at [facility] this week U liason consulted for depression/depressed affect/ongoing inpatient stay and support - will reach out tomorrow if no documented visit Admission and Anticipated Discharge Date Admission Date: September 24, 2023 Supervising Physician Co-Signing Physician Notes Attending Attestation - Chart reviewed, care plan d/w JOSE L Beltrán. I agree w/ the lyons components of her documentation. Filippo Grimm MD Subjective Patient lying in bed. States she was napping but awoken by a nightmare, unable to recall what this was regarding. No acute complaints Good appetite Review of Systems Review of Systems: All systems reviewed & are unremarkable except as noted in Subjective Physical Exam Physical Exam: General:thin, dressed in street clothes, lying in bed Resp: normal respiratory effort, lungs clear to auscultation CV: RRR, no murmur, Extremities: Moves all extremities, no edema Results & Data Results & Data Vital Signs (Past 12 Hours) Vital Signs Temp Pulse Resp BP Pulse Ox O2 Del Method 11/10/23 08:19 36.7 C 76 16 115/73 97 Room Air PG Care Time/CCT Total # of Minutes Spent Total Time Spent with Patient: Total time spent is greater than 50% in coordination of care (as documented) at patient's floor/unit and/or counseling patient: Coding Level of Care Code 29249 SUB INP/OBS CARE 11/19MIN Diagnoses Acute alteration in mental status R41.82 Total bilirubin, elevated R17 Hypothyroidism E03.9 Dysphagia R13.10
--- NOTE | 2023-11-11 13:20 | Hospitalist Progress Note ---
Date of Service November 11, 2023 Assessment & Plan (1) Acute alteration in mental status: Plan: Baseline dementia and disorientation. -acute metabolic encephalopathy on admission, resolved, secondary to UTI s/p treatment completed 5 days of parenteral Rocephin - Patient's level of confusion prevents a safe disposition home without a supervised situation. - Currently awaiting placement, case management following, looking at [facility], NATASHA is brother, Gordo *Patient did endorse some depression about ongoing inpatient stay/same food choices/book choices being children(has read others). Missing her animal at home who reportedly lost 5 lb, going to bathroom under the couch. Reports has reactions to medications and not really wanting to try anything just yet. She does have increased sleep, anhedonia - Spoke with behavioral health liaison today, they will speak with her today. I provided additonal magazine and word search books. Behavioral health looking into additional clothing for her. Provided additional reading material (likes non-fiction) while inpatient. Maintain wake/sleep schedules as suspect worsening her depression w/ ongoing inpatient stay. (2) Total bilirubin, elevated: Plan: resolved, recheck 10/17 remains elevated this is isolated without transaminase elevations or alkaline phosphatase elevation is likely may be more of a function of [place] syndrome No abdominal pain, nausea, vomiting, diarrhea (3) Hypothyroidism: Plan: Currently off levothyroxine. TSH is normal. Free T4 level normal (4) Dysphagia: Plan: 1 episode of choking in the evening of 10/05 no residual effects from it. Patient does not remember this. No additional episodes of choking have occurred for discussion with nursing Plan Dispo: continued inpatient stay until safe placement, medically stable Per CM, hopefully having bed at [facility] this week Admission and Anticipated Discharge Date Admission Date: September 24, 2023 Supervising Physician Co-Signing Physician Notes Attending Attestation - Chart reviewed, care plan d/w JOSE L Beltrán. I agree w/ the lyons components of her documentation. Filippo Grimm MD Subjective Patient ambulating in room. Voices frustration about continued stay, limited activities. Prefers to be outside. Would like to shower, but does not have other clothing. Does report feeling down, agreeable to talk to behavioral health liaison. Denies pain Review of Systems Review of Systems: All systems reviewed & are unremarkable except as noted in Subjective Physical Exam Physical Exam: Alert and oreinted to self, pleasant Cardio - regular rate Pulm - breathing unlabored, no wheezing Ext - moves around in the room independently Results & Data Results & Data Vital Signs (Past 12 Hours) Vital Signs Temp Pulse Resp BP Pulse Ox O2 Del Method 11/11/23 07:00 36.7 C 69 18 116/76 99 Room Air PG Care Time/CCT Total # of Minutes Spent Total Time Spent with Patient: Total time spent is greater than 50% in coordination of care (as documented) at patient's floor/unit and/or counseling patient: Coding Level of Care Code 89860 SUB INP/OBS CARE 11/19MIN Diagnoses Acute alteration in mental status R41.82 Total bilirubin, elevated R17 Hypothyroidism E03.9 Dysphagia R13.10
--- NOTE | 2023-11-12 10:25 | Hospitalist Progress Note ---
Date of Service November 12, 2023 Assessment & Plan (1) Acute alteration in mental status: Plan: Baseline dementia and disorientation. -acute metabolic encephalopathy on admission, resolved, secondary to UTI s/p treatment completed 5 days of parenteral Rocephin - Patient's level of confusion prevents a safe disposition home without a supervised situation. - Currently awaiting placement, case management following, looking at [facility], NATASHA is brother, Gordo Signs of depression - behavioral health liaison consulted. - Did not start medications - Working on obtaining clean clothes for patient - Provided additional magazines and word search book 11/11 (patient prefers nonfiction) Maintain wake/sleep schedules as suspect worsening her depression w/ ongoing inpatient stay. (2) Total bilirubin, elevated: Plan: resolved, recheck 10/17 remains elevated this is isolated without transaminase elevations or alkaline phosphatase elevation is likely may be more of a function of [place] syndrome No abdominal pain, nausea, vomiting, diarrhea (3) Hypothyroidism: Plan: Restarted on levothyroxine 11/04. Recheck TSH in 2-4 weeks (4) Dysphagia: Plan: 1 episode of choking in the evening of 10/05 no residual effects from it. P atient does not remember this. No additional episodes of choking have occurred for discussion with nursing Plan Dispo: continued inpatient stay until safe placement, medically stable Per CM, hopefully having bed at [facility] this week Admission and Anticipated Discharge Date Admission Date: September 24, 2023 Supervising Physician Co-Signing Physician Notes Attending Attestation - Chart reviewed, care plan d/w JOSE L Beltrán. I agree w/ the lyons components of her documentation. Filippo Grimm MD Subjective Patient lying in bed, reading her book. Not very interested in talking to me because she is engrossed in her book. Denies any acute complaints. Review of Systems Review of Systems: All systems reviewed & are unremarkable except as noted in Subjective Physical Exam Physical Exam: Alert and oriented to self, lying in bed Cardio - RRR, no murmur Pulm - breathing unlabored, clear to ascultation Ext - moves around in the room independently Results & Data Results & Data Vital Signs (Past 12 Hours) Vital Signs Temp Pulse Resp BP Pulse Ox O2 Del Method 11/12/23 07:47 36.5 C 78 18 105/71 98 Room Air PG Care Time/CCT Total # of Minutes Spent Total Time Spent with Patient: Total time spent is greater than 50% in coordination of care (as documented) at patient's floor/unit and/or counseling patient: Coding Level of Care Code 68179 SUB INP/OBS CARE 11/19MIN Diagnoses Acute alteration in mental status R41.82 Total bilirubin, elevated R17 Hypothyroidism E03.9 Dysphagia R13.10
--- NOTE | 2023-11-13 13:00 | Hospitalist Progress Note ---
Date of Service November 13, 2023 Assessment & Plan (1) Acute alteration in mental status: Plan: Baseline dementia and disorientation. -acute metabolic encephalopathy on admission, resolved, secondary to UTI s/p treatment completed 5 days of parenteral Rocephin - Patient's level of confusion prevents a safe disposition home without a supervised situation. - Currently awaiting placement, case management following, looking at [facility], NATASHA is brotherGordo Signs of depression - behavioral health liaison consulted. - Did not start medications - Working on obtaining clean clothes for patient - nonfiction book provided 11/13, pt pleased Maintain wake/sleep schedules as suspect worsening her depression w/ ongoing inpatient stay. (2) Total bilirubin, elevated: Plan: resolved, recheck 10/17 remains elevated this is isolated without transaminase elevations or alkaline phosphatase elevation is likely may be more of a function of [place] syndrome No abdominal pain, nausea, vomiting, diarrhea (3) Hypothyroidism: Plan: Restarted on levothyroxine 11/04. Recheck TSH in 2-4 weeks (4) Dysphagia: Plan: 1 episode of choking in the evening of 10/05 no residual effects from it. Patient does not remember this. No additional episodes of choking have occurred for discussion with nursing Plan Dispo: continued inpatient stay until safe placement, medically stable Per CM, hopefully having bed at [facility] this week Admission and Anticipated Discharge Date Admission Date: September 24, 2023 Supervising Physician Co-Signing Physician Notes Attending Attestation - Chart reviewed, care plan d/w JOSE L Beltrán. I agree w/ the lyons components of her documentation. Filippo Grimm MD Subjective Ambulating in the room. Very pleased with the book I brought her. Still hopeful to be able to leave the hospital soon. Review of Systems Review of Systems: All systems reviewed & are unremarkable except as noted in Subjective Physical Exam Physical Exam: Alert and oriented to self, ambulating in the room Cardio - RRR, no murmur Pulm - breathing unlabored, clear to auscultation Ext - moves around in the room independently Results & Data Results & Data Vital Signs (Past 12 Hours) Vital Signs Temp Pulse Resp BP Pulse Ox O2 Del Method 11/13/23 08:07 36.6 C 74 18 118/74 97 Room Air PG Care Time/CCT Total # of Minutes Spent Total Time Spent with Patient: Total time spent is greater than 50% in coordination of care (as documented) at patient's floor/unit and/or counseling patient: Coding Level of Care Code 55357 SUB INP/OBS CARE 11/19MIN Diagnoses Acute alteration in mental status R41.82 Total bilirubin, elevated R17 Hypothyroidism E03.9 Dysphagia R13.10
--- NOTE | 2023-11-14 09:21 | Hospitalist Progress Note ---
Date of Service November 14, 2023 Assessment & Plan (1) Acute alteration in mental status: Plan: Baseline dementia and disorientation. -acute metabolic encephalopathy on admission, resolved, secondary to UTI s/p treatment completed 5 days of parenteral Rocephin - Patient's level of confusion prevents a safe disposition home without a supervised situation. - Currently awaiting placement, case management following, planning for [facility], NATASHA is brotherGordo Signs of depression - behavioral health liaison consulted. - Did not start medications - Working on obtaining clean clothes for patient - nonfiction book provided 11/13, pt pleased Maintain wake/sleep schedules as suspect worsening her depression w/ ongoing inpatient stay. (2) Total bilirubin, elevated: Plan: resolved, recheck 10/17 remains elevated this is isolated without transaminase elevations or alkaline phosphatase elevation is likely may be more of a function of [place] syndrome No abdominal pain, nausea, vomiting, diarrhea (3) Hypothyroidism: Plan: Restarted on levothyroxine 11/04. Recheck TSH in 2-4 weeks (4) Dysphagia: Plan: 1 episode of choking in the evening of 10/05 no residual effects from it. Patient does not remember this. No additional episodes of choking have occurred for discussion with nursing Plan Dispo: continued inpatient stay until safe placement, medically stable Admission and Anticipated Discharge Date Admission Date: September 24, 2023 Supervising Physician Co-Signing Physician Notes Attending Attestation - Chart reviewed, care plan d/w JOSE L Beltrán. I agree w/ the lyons components of her documentation. Filippo Grimm MD Subjective Patient lying in bed, reading book. No acute complaints besides the food. Asks if there is something she is craving and her response is "food". Still awaiting placement Review of Systems Review of Systems: All systems reviewed & are unremarkable except as noted in Subjective Physical Exam Physical Exam: Alert and oriented to self and place, limited eye contact as she is very focused on her book Cardio - RRR, no murmur Pulm - breathing unlabored, clear to auscultation Ext - moves around in the room independently. no LE edema Results & Data Results & Data Vital Signs (Past 12 Hours) Vital Signs Temp Pulse Resp BP Pulse Ox O2 Del Method 11/14/23 07:20 36.5 C 73 16 103/67 98 Room Air PG Care Time/CCT Total # of Minutes Spent Total Time Spent with Patient: Total time spent is greater than 50% in coordination of care (as documented) at patient's floor/unit and/or counseling patient: Coding Level of Care Code 87864 SUB INP/OBS CARE 11/19MIN Diagnoses Acute alteration in mental status R41.82 Total bilirubin, elevated R17 Hypothyroidism E03.9 Dysphagia R13.10
--- NOTE | 2023-11-15 11:02 | Hospitalist Progress Note ---
Date of Service November 15, 2023 Assessment & Plan (1) Acute alteration in mental status: Plan: Baseline dementia and disorientation. -acute metabolic encephalopathy on admission, resolved, secondary to UTI s/p treatment completed 5 days of parenteral Rocephin - Patient's level of confusion prevents a safe disposition home without a supervised situation. - Currently awaiting placement, case management following, planning for [facility], NATASHA is brotherGordo Signs of depression - behavioral health liaison consulted. - Did not start medications - Working on obtaining clean clothes for patient - nonfiction book provided 11/13, pt pleased Maintain wake/sleep schedules as suspect worsening her depression w/ ongoing inpatient stay. (2) Total bilirubin, elevated: Plan: resolved, recheck 10/17 remains elevated this is isolated without transaminase elevations or alkaline phosphatase elevation is likely may be more of a function of [place] syndrome No abdominal pain, nausea, vomiting, diarrhea (3) Hypothyroidism: Plan: Restarted on levothyroxine 11/04. Recheck TSH in 2-4 weeks (4) Dysphagia: Plan: 1 episode of choking in the evening of 10/05 no residual effects from it. Patient does not remember this. No additional episodes of choking have occurred for discussion with nursing Plan Dispo: continued inpatient stay until safe placement, medically stable Admission and Anticipated Discharge Date Admission Date: September 24, 2023 Supervising Physician Co-Signing Physician Notes Attending Attestation - Chart reviewed, care plan d/w JOSE L Beltrán. I agree w/ the lyons components of her documentation. Filippo Grimm MD Subjective Patient seen sitting up in the chair. Slept well and feels well rested. Requesting new reading materials, otherwise no acute complaints. Review of Systems Review of Systems: All systems reviewed & are unremarkable except as noted in Subjective Physical Exam Physical Exam: Alert and oriented to self and place, affect improved from prior days. Sitting u p in the chair Cardio - RRR, no murmur Pulm - breathing unlabored, clear to auscultation Ext - moves around in the room independently. no LE edema Results & Data Results & Data Vital Signs (Past 12 Hours) Vital Signs Temp Pulse Resp BP Pulse Ox O2 Del Method 11/15/23 07:02 36.6 C 67 16 99/64 L 99 Room Air PG Care Time/CCT Total # of Minutes Spent Total Time Spent with Patient: Total time spent is greater than 50% in coordination of care (as documented) at patient's floor/unit and/or counseling patient: Coding Level of Care Code 17316 SUB INP/OBS CARE Diagnoses Acute alteration in mental status R41.82 Total bilirubin, elevated R17 Hypothyroidism E03.9 Dysphagia R13.10
--- NOTE | 2023-11-16 12:52 | Hospitalist Progress Note ---
Date of Service November 16, 2023 Assessment & Plan (1) Acute alteration in mental status: Plan: Baseline dementia and disorientation. -acute metabolic encephalopathy on admission, resolved, secondary to UTI s/p treatment completed 5 days of parenteral Rocephin - Patient's level of confusion prevents a safe disposition home without a supervised situation. - Currently awaiting placement, case management following, planning for [facility], NATASHA is brotherGordo Signs of depression - behavioral health liaison consulted. - Did not start medications - Working on obtaining clean clothes for patient - nonfiction book provided 11/13, pt pleased Maintain wake/sleep schedules as suspect worsening her depression w/ ongoing inpatient stay. (2) Total bilirubin, elevated: Plan: resolved, recheck 10/17 remains elevated this is isolated without transaminase elevations or alkaline phosphatase elevation is likely may be more of a function of [place] syndrome No abdominal pain, nausea, vomiting, diarrhea (3) Hypothyroidism: Plan: Restarted on levothyroxine 11/04. Recheck TSH in 2-4 weeks (4) Dysphagia: Plan: 1 episode of choking in the evening of 10/05 no residual effects from it. Patient does not remember this. No additional episodes of choking have occurred for discussion with nursing Plan Dispo: continued inpatient stay until safe placement, medically stable Admission and Anticipated Discharge Date Admission Date: September 24, 2023 Supervising Physician Co-Signing Physician Notes Attending Attestation - Chart reviewed, care plan d/w JOSE L Beltrán. I agree w/ the lyons components of her documentation. Filippo Grimm MD Subjective patient sitting up in bed, reading magazine, very happy with it. No acute concerns Review of Systems Review of Systems: All systems reviewed & are unremarkable except as noted in Subjective Physical Exam Physical Exam: Alert and oriented to self and place, affect improved from prior days. Sitting up in bed Cardio - RRR, no murmur Pulm - breathing unlabored, clear to auscultation Ext - moves around in the room independently. no LE edema Results & Data Results & Data Vital Signs (Past 12 Hours) Vital Signs Temp Pulse Resp BP Pulse Ox O2 Del Method 11/16/23 08:13 36.5 C 76 18 103/72 98 Room Air PG Care Time/CCT Total # of Minutes Spent Total Time Spent with Patient: Total time spent is greater than 50% in coordination of care (as documented) at patient's floor/unit and/or counseling patient: Coding Level of Care Code 05079 SUB INP/OBS CARE 11/19MIN Diagnoses Acute alteration in mental status R41.82 Total bilirubin, elevated R17 Hypothyroidism E03.9 Dysphagia R13.10
--- NOTE | 2023-11-17 08:48 | Hospitalist Progress Note ---
Date of Service November 17, 2023 Assessment & Plan (1) Acute alteration in mental status: Plan: Baseline dementia and disorientation. -acute metabolic encephalopathy on admission, resolved, secondary to UTI s/p treatment completed 5 days of parenteral Rocephin - Patient's level of confusion prevents a safe disposition home without a supervised situation. Currently awaiting placement, case management following, planning for [facility], NATASHA is brother, Gordo Empiric thiamine ordered, did not check B1 to prevent agitation/additoinal lab sticks, but continued empirically Signs of depression - behavioral health liaison consulted. - Did not start medications - Working on obtaining clean clothes for patient - nonfiction book provided 11/13, pt pleased Maintain wake/sleep schedules as suspect worsening her depression w/ ongoing inpatient stay. (2) Total bilirubin, elevated: Plan: resolved, recheck 10/17 remains elevated this is isolated without transaminase elevations or alkaline phosphatase elevation is likely may be more of a function of [place] syndrome No abdominal pain, nausea, vomiting, diarrhea (3) Hypothyroidism: Plan: Restarted on levothyroxine 11/04. Recheck TSH in 2-4 weeks can be done next week if remaining inpatient (4) Dysphagia: Plan: 1 episode of choking in the evening of 10/05 no residual effects from it. Patient does not remember this. No additional episodes of choking have occurred for discussion with nursing Plan Dispo: continued inpatient stay until safe placement, medically stable Most recent CM note 11/16 "Spoke with Zoe at [facility], she sent an additional email to William in Finance. He has not in the office for several days for follow-up. Gordo had emailed all records to William and William was waiting on Bank statements. CM will continue to follow." Admission and Anticipated Discharge Date Admission Date: September 24, 2023 Supervising Physician Co-Signing Physician Notes The patient was not seen by me. The chart was reviewed. Case discussed with JOSE L Gar. Agree with assessment and plan Subjective eval this morning, resting in bed no issues reported by nursing ongoing placement, CM following as well as finance. Physical Exam Physical Exam: General- 77 female resting in bed, NAD, depressed affect, not well groomed/poor hygiene Head atraumatic, normocephalic resp even/unlabored, no cough/tachypnea, 100% cv; RRR, no pitting edema gi: +bs, soft/NT MSK/Neuro; non focal, no slurred speech/facial droop psych: alert/oriented to person/place, not event/times at times but pleasant/cooperative depressed/flat affect, +endorses being depressed being in hospital still/same food choices. No SI/HI ideation noted Results & Data Results & Data Vital Signs (Past 12 Hours) Vital Signs Temp Pulse Resp BP Pulse Ox O2 Del Method 11/17/23 07:02 36.4 C L 79 15 123/77 100 Room Air PG Care Time/CCT Total # of Minutes Spent Total Time Spent with Patient: Total time spent is greater than 50% in coordination of care (as documented) at patient's floor/unit and/or counseling patient: Coding Level of Care Code 33020 SUB INP/OBS CARE 11/19MIN Diagnoses Acute alteration in mental status R41.82 Total bilirubin, elevated R17 Hypothyroidism E03.9 Dysphagia R13.10
--- NOTE | 2023-11-18 09:15 | Hospitalist Progress Note ---
Date of Service November 18, 2023 Assessment & Plan (1) Acute alteration in mental status: Plan: Baseline dementia and disorientation. -acute metabolic encephalopathy on admission, resolved, secondary to UTI s/p treatment completed 5 days of parenteral Rocephin - Patient's level of confusion prevents a safe disposition home without a supervised situation. Currently awaiting placement, case management following, planning for [facility], NATASHA is brother, Gordo Empiric thiamine ordered, did not check B1 to prevent agitation/additoinal lab sticks, but continued empirically Signs of depression - behavioral health liaison consulted. - Did not start medications - Working on obtaining clean clothes for patient - nonfiction book provided 11/13, pt pleased. Will bring additional magazines 11/19 Maintain wake/sleep schedules as suspect worsening her depression w/ ongoing inpatient stay. (2) Total bilirubin, elevated: Plan: resolved, recheck 10/17 remains elevated this is isolated without transaminase elevations or alkaline phosphatase elevation is likely may be more of a function of [place] syndrome No abdominal pain, nausea, vomiting, diarrhea Requesting additional vanilla ice cream, provided. Improvement in appetite reported (3) Hypothyroidism: Plan: Currently off levothyroxine. TSH is normal. Free T4 level normal (4) Dysphagia: Plan: 1 episode of choking in the evening of 10/05 no residual effects from it. Patient does not remember this. No additional episodes of choking have occurred for discussion with nursing Plan Dispo: continued inpatient stay until safe placement, medically stable Most recent CM note 11/16 "Spoke with Zoe at [facility], she sent an additional email to William in Finance. He has not in the office for several days for follow-up. Gordo had emailed all records to William and William was waiting on Bank statements. CM will continue to follow." Admission and Anticipated Discharge Date Admission Date: September 24, 2023 Subjective Eval this morning, mood appears stable/improved. Asking for some vanilla ice cream. GIven old magazine from last year, laughed as was out of date. Discussed vogue magazine/etc, will bring some in for her tomorrow. Awaiting placement. No acute issues reported. Physical Exam Physical Exam: General- 77 female resting ambulating in the room, stable but flat affect, requesting vanilla ice cream, NAD Head atraumatic, normocephalic resp even/unlabored, no cough/tachypnea, on room air cv; RRR, no pitting edema gi: +bs, soft/NT MSK/Neuro; non focal, no slurred speech/facial droop psych: alert/oriented to person/place, not event/times at times but pleasant/cooperative stable mood at present time, flat affect at times but appears improved/stable from prior weeks Results & Data Results & Data Vital Signs (Past 12 Hours) Vital Signs Temp Pulse Resp BP Pulse Ox O2 Del Method 11/18/23 07:38 36.6 C 70 17 104/66 99 Room Air PG Care Time/CCT Total # of Minutes Spent Total Time Spent with Patient: Total time spent is greater than 50% in coordination of care (as documented) at patient's floor/unit and/or counseling patient: Coding Level of Care Code 76382 SUB INP/OBS CARE 125MIN Diagnoses Acute alteration in mental status R41.82 Total bilirubin, elevated R17 Hypothyroidism E03.9 Dysphagia R13.10
--- NOTE | 2023-11-19 08:25 | Hospitalist Progress Note ---
Date of Service November 19, 2023 Assessment & Plan (1) Acute alteration in mental status: Plan: Baseline dementia and disorientation. -acute metabolic encephalopathy on admission, resolved, secondary to UTI s/p treatment completed 5 days of parenteral Rocephin - Patient's level of confusion prevents a safe disposition home without a supervised situation. Currently awaiting placement, case management following, planning for [facility], NATASHA is brother, Gordo Empiric thiamine ordered, did not check B1 to prevent agitation/additoinal lab sticks, but continued empirically Signs of depression - behavioral health liaison consulted. - Did not start medications - Working on obtaining clean clothes for patient - nonfiction book provided 11/13, pt pleased. Additional magazines 11/19 provided w/ good interaction. Ongoing placement, CM following. Maintain wake/sleep schedules as suspect worsening her depression w/ ongoing inpatient stay. (2) Total bilirubin, elevated: Plan: resolved, recheck 10/17 remains elevated this is isolated without transaminase elevations or alkaline phosphatase elevation is likely may be more of a function of [place] syndrome No abdominal pain, nausea, vomiting, diarrhea Requesting additional vanilla ice cream, provided. Improvement in appetite reported (3) Hypothyroidism: Plan: Currently off levothyroxine. TSH is normal. Free T4 level normal (4) Dysphagia: Plan: 1 episode of choking in the evening of 10/05 no residual effects from it. Patient does not remember this. No additional episodes of choking have occurred for discussion with nursing Plan Dispo: continued inpatient stay until safe placement, medically stable Most recent CM note 11/17 "Spoke with both Gordo and Nan. Gordo states that he has been in close contact with Jamshid, in William's absence. He had emailed him more information. Nan has been cleaning out Rita's apartment and packing her belongings. She has been in contact with [facility] about what Rita is able to have in her room there. Original Note: CM note: Spoke with Zoe at [facility]. Since William has been off work, Zoe and Terese escalated their email to William's boss to inquire about follow-up. William 's boss stated that he spoke with Gordo and they are working on acquiring financial information from the last 5 years from [employer]. I also faxed the MA51 and PASRR that I had sent to the office of aging in Early September. CM will continue to follow. " Admission and Anticipated Discharge Date Admission Date: September 24, 2023 Supervising Physician Co-Signing Physician Notes The patient was not seen by me. The chart was reviewed. Case discussed with JOSE L Gar. Agree with assessment and plan Subjective eval this morning, sitting up in bed. provided additional reading material/magazines w/ [employer]uke [employer] claudette stater she was thankful for some actual reading material she might enjoy. asked for fresh ice water, provided. no acute distress ongoing placement, CM following Physical Exam Physical Exam: General- 77 female resting ambulating in the room, stable but flat affect, requesting vanilla ice cream, NAD Head atraumatic, normocephalic resp even/unlabored, no cough/tachypnea, on room air cv; RRR, no pitting edema gi: +bs, soft/NT MSK/Neuro; non focal, no slurred speech/facial droop psych: alert/oriented to person/place, not event/times at times but pleasant/cooperative stable mood at present time, flat affect at times but appears improved/stable from prior weeks PG Care Time/CCT Total # of Minutes Spent Total Time Spent with Patient: Total time spent is greater than 50% in coordination of care (as documented) at patient's floor/unit and/or counseling patient: Coding Level of Care Code 59198 SUB INP/OBS CARE 1/25MIN Diagnoses Acute alteration in mental status R41.82 Total bilirubin, elevated R17 Hypothyroidism E03.9 Dysphagia R13.10
--- NOTE | 2023-11-20 08:26 | Hospitalist Progress Note ---
Date of Service November 20, 2023 Assessment & Plan (1) Acute alteration in mental status: Plan: Baseline dementia and disorientation. -acute metabolic encephalopathy on admission, resolved, secondary to UTI s/p treatment completed 5 days of parenteral Rocephin - Patient's level of confusion prevents a safe disposition home without a supervised situation. Currently awaiting placement, case management following, planning for NATASHA ramirez is brotherGordo Empiric thiamine ordered, did not check B1 to prevent agitation/additoinal lab sticks, but continued empirically Signs of depression - behavioral health liaison consulted. - Did not start medications - Working on obtaining clean clothes for patient - nonfiction book provided 11/13, pt pleased. Additional magazines 11/19 provided w/ good interaction. Ongoing placement, CM following. Maintain wake/sleep schedules as suspect worsening her depression w/ ongoing inpatient stay. (2) Total bilirubin, elevated: Plan: resolved, recheck 10/17 remains elevated this is isolated without transaminase elevations or alkaline phosphatase elevation is likely may be more of a function of [place] syndrome No abdominal pain, nausea, vomiting, diarrhea Requesting additional vanilla ice cream, provided. Improvement in appetite reported (3) Hypothyroidism: Plan: Currently off levothyroxine. TSH is normal. Free T4 level normal (4) Dysphagia: Plan: 1 episode of choking in the evening of 10/05 no residual effects from it. Patient does not remember this. No additional episodes of choking have occurred for discussion with nursing Plan Dispo: continued inpatient stay until safe placement, medically stable Most recent CM note 11/19 "awaiting financial confirmation from Jonny" [facility] able to take once confirmed and CM following Admission and Anticipated Discharge Date Admission Date: September 24, 2023 Subjective No acute events, ongoing placement issues that case management is following. hopeful bed once paperwork completed Physical Exam Physical Exam: General- 77 female resting ambulating in the room, stable but flat affect, NAD Head atraumatic, normocephalic resp even/unlabored, no cough/tachypnea, on room air cv; RRR, no pitting edema gi: +bs, soft/NT MSK/Neuro; non focal, no slurred speech/facial droop psych: alert/oriented to person/place, not event/times at times but pleasant/cooperative stable mood at present time, flat affect at times but appears improved/stable from prior weeks Results & Data Results & Data Vital Signs (Past 12 Hours) Vital Signs Temp Pulse Resp BP Pulse Ox O2 Del Method 11/20/23 07:26 36.5 C 75 16 106/70 98 Room Air PG Care Time/CCT Total # of Minutes Spent Total Time Spent with Patient: Total time spent is greater than 50% in coordination of care (as documented) at patient's floor/unit and/or counseling patient: Coding Level of Care Code 26765 SUB INP/OBS CARE 11/19MIN Diagnoses Acute alteration in mental status R41.82 Total bilirubin, elevated R17 Hypothyroidism E03.9 Dysphagia R13.10
--- NOTE | 2023-11-21 08:08 | Hospitalist Progress Note ---
Date of Service November 21, 2023 Assessment & Plan (1) Acute alteration in mental status: Plan: Baseline dementia and disorientation. -acute metabolic encephalopathy on admission, resolved, secondary to UTI s/p treatment completed 5 days of parenteral Rocephin - Patient's level of confusion prevents a safe disposition home without a supervised situation. Currently awaiting placement, case management following, planning for [facility], NATASHA is brotherGordo Empiric thiamine ordered, did not check B1 to prevent agitation/additoinal lab sticks, but continued empirically Signs of depression - behavioral health liaison consulted. - Did not start medications - Working on obtaining clean clothes for patient - nonfiction book provided 11/13, pt pleased. Additional magazines 11/19 provided w/ good interaction. Ongoing placement, CM following. Maintain wake/sleep schedules as suspect worsening her depression w/ ongoing inpatient stay. (2) Total bilirubin, elevated: Plan: resolved, recheck 10/17 remains elevated this is isolated without transaminase elevations or alkaline phosphatase elevation is likely may be more of a function of [place] syndrome No abdominal pain, nausea, vomiting, diarrhea Requesting additional vanilla ice cream, provided. Improvement in appetite reported (3) Hypothyroidism: Plan: Currently off levothyroxine. TSH is normal. Free T4 level normal (4) Dysphagia: Plan: 1 episode of choking in the evening of 10/05 no residual effects from it. Patient does not remember this. No additional episodes of choking have occurred for discussion with nursing Plan Dispo: continued inpatient stay until safe placement, medically stable Most recent CM note 11/19 "awaiting financial confirmation from Jonny" [facility] able to take once confirmed and CM following Admission and Anticipated Discharge Date Admission Date: September 24, 2023 Subjective No acute events overnight. Hopefully dc to [facility] this upcoming week. Physical Exam Physical Exam: General- 77 female resting in bed, NAD Head atraumatic, normocephalic resp even/unlabored, no cough/tachypnea, on room air cv; RRR, no pitting edema gi: +bs, soft/NT MSK/Neuro; non focal, no slurred speech/facial droop psych: alert/oriented to person/place, not event/times at times but pleasant/cooperative stable mood at present time, flat affect at times but appears improved/stable from prior weeks Results & Data Results & Data Vital Signs (Past 12 Hours) Vital Signs Temp Pulse Resp BP Pulse Ox O2 Del Method 11/20/23 21:16 36.4 C L 81 14 115/74 100 Room Air 11/20/23 21:13 Room Air PG Care Time/CCT Total # of Minutes Spent Total Time Spent with Patient: Total time spent is greater than 50% in coordination of care (as documented) at patient's floor/unit and/or counseling patient: Coding Level of Care Code 00255 SUB INP/OBS CARE 11/19MIN Diagnoses Acute alteration in mental status R41.82 Total bilirubin, elevated R17 Hypothyroidism E03.9 Dysphagia R13.10
--- NOTE | 2023-11-22 07:53 | Hospitalist Progress Note ---
Date of Service November 22, 2023 Assessment & Plan (1) Acute alteration in mental status: Plan: Baseline dementia and disorientation. -acute metabolic encephalopathy on admission, resolved, secondary to UTI s/p treatment completed 5 days of parenteral Rocephin - Patient's level of confusion prevents a safe disposition home without a supervised situation. Currently awaiting placement, case management following, planning for NATASHA ramirez is brotherGordo Empiric thiamine ordered, did not check B1 to prevent agitation/additoinal lab sticks, but continued empirically Signs of depression - behavioral health liaison consulted. - Did not start medications - Working on obtaining clean clothes for patient - nonfiction book provided 11/13, pt pleased. Additional magazines 11/19 provided w/ good interaction. Ongoing placement, CM following. Maintain wake/sleep schedules as suspect worsening her depression w/ ongoing inpatient stay. Reading [employer]s digest 11/22, will attempt to bring newspaper for patient in AM if able (2) Total bilirubin, elevated: Plan: resolved, recheck 10/17 remains elevated this is isolated without transaminase elevations or alkaline phosphatase elevation is likely may be more of a function of [place] syndrome No abdominal pain, nausea, vomiting, diarrhea Requesting additional vanilla ice cream, provided. Improvement in appetite reported (3) Hypothyroidism: Plan: Currently off levothyroxine. TSH is normal. Free T4 level normal (4) Dysphagia: Plan: 1 episode of choking in the evening of 10/05 no residual effects from it. Patient does not remember this. No additional episodes of choking have occurred for discussion with nursing Plan Dispo: continued inpatient stay until safe placement, medically stable Most recent CM note 11/19 [facility] and CM following Admission and Anticipated Discharge Date Admission Date: September 24, 2023 Subjective Eval this afternoon, sitting up in bed reading reader's digest. No acute issues reported. Physical Exam Physical Exam: General- 77 female resting in bed, NAD, reading book/magazine Head atraumatic, normocephalic resp even/unlabored, no cough/tachypnea, on room air cv; RRR, no pitting edema gi: +bs, soft/NT MSK/Neuro; non focal, no slurred speech/facial droop psych: alert/oriented to person/place, not event/times at times but pleasant/cooperative stable mood at present time, flat affect at times but appears improved/stable from prior weeks PG Care Time/CCT Total # of Minutes Spent Total Time Spent with Patient: Total time spent is greater than 50% in coordination of care (as documented) at patient's floor/unit and/or counseling patient: Coding Level of Care Code 89043 SUB INP/OBS CARE 1/25MIN Diagnoses Acute alteration in mental status R41.82 Total bilirubin, elevated R17 Hypothyroidism E03.9 Dysphagia R13.10
--- NOTE | 2023-11-23 08:15 | Hospitalist Progress Note ---
Date of Service November 23, 2023 Assessment & Plan (1) Acute alteration in mental status: Plan: Baseline dementia and disorientation. -acute metabolic encephalopathy on admission, resolved, secondary to UTI s/p treatment completed 5 days of parenteral Rocephin - Patient's level of confusion prevents a safe disposition home without a supervised situation. Currently awaiting placement, case management following, planning for [facility], NATASHA is brotherGordo Empiric thiamine ordered, did not check B1 to prevent agitation/additoinal lab sticks, but continued empirically Signs of depression - behavioral health liaison consulted. - Did not start medications - Working on obtaining clean clothes for patient - nonfiction book provided 11/13, pt pleased. Additional magazines 11/19 provided w/ good interaction. Maintain wake/sleep schedules as suspect worsening her depression w/ ongoing inpatient stay. Reading reader's digest, would see about maybe bringing in newspapers/non- fiction this week if still here Ongoing placement, CM following. (2) Total bilirubin, elevated: Plan: resolved, recheck 10/17 remains elevated this is isolated without transaminase elevations or alkaline phosphatase elevation is likely may be more of a function of [place] syndrome No abdominal pain, nausea, vomiting, diarrhea Improvement in appetite reported, req vanilla ice cream at times/provided (3) Hypothyroidism: Plan: Synthroid resumed 25mcg 11/[address] Wang Repeat TSH on 11/24 ordered to ensue no issues (4) Dysphagia: Plan: 1 episode of choking in the evening of 10/05 no residual effects from it. Patient does not remember this. No additional episodes of choking have occurred for discussion with nursing Plan Dispo: continued inpatient stay until safe placement, medically stable Awaiting financial piece per CM -- [facility] accepted/can take once confirmed Admission and Anticipated Discharge Date Admission Date: September 24, 2023 Subjective No acute issues, ongoing placement issues/waiting for financials. mood appears stable, allowed to rest this morning Physical Exam Physical Exam: General- 77 female resting in bed, NAD, reading book/magazine Head atraumatic, normocephalic resp even/unlabored, no cough/tachypnea, on room air cv; RRR, no pitting edema gi: +bs, soft/NT MSK/Neuro; non focal, no slurred speech/facial droop psych: alert/oriented to person/place, not event/times at times but pleasant/cooperative stable mood at present time, flat affect at times but appears improved/stable from prior weeks Results & Data Results & Data Vital Signs (Past 12 Hours) Vital Signs Temp Pulse Resp BP Pulse Ox O2 Del Method 11/23/23 07:30 36.8 C 80 16 109/73 96 Room Air 11/22/23 21:55 37 C 82 14 110/73 98 Room Air PG Care Time/CCT Total # of Minutes Spent Total Time Spent with Patient: Total time spent is greater than 50% in coordination of care (as documented) at patient's floor/unit and/or counseling patient: Coding Level of Care Code 72164 SUB INP/OBS CARE 11/19MIN Diagnoses Acute alteration in mental status R41.82 Total bilirubin, elevated R17 Hypothyroidism E03.9 Dysphagia R13.10
[2023-11-24 11:21] LABS: Thyroid Stimulating Hormone 4.677 uIu/ml (0.300-4.500)
[2023-11-24 11:56] LABS: T4 Free Thyroxine 0.88 ng/dl (0.61-1.60)
--- NOTE | 2023-11-24 13:12 | Hospitalist Progress Note ---
Date of Service November 24, 2023 Assessment & Plan (1) Acute alteration in mental status: Plan: Baseline dementia and disorientation. -acute metabolic encephalopathy on admission, resolved, secondary to UTI s/p treatment completed 5 days of parenteral Rocephin - Patient's level of confusion prevents a safe disposition home without a supervised situation. Currently awaiting placement, case management following, planning for NATASHA ramirez is brotherGordo Empiric thiamine ordered, did not check B1 to prevent agitation/additoinal lab sticks, but continued empirically Signs of depression - behavioral health liaison consulted. - Did not start medications - nonfiction book provided 11/13, pt pleased. Additional magazines 11/19 provided w/ good interaction. - Maintain wake/sleep schedules as suspect worsening her depression w/ ongoing inpatient stay. (2) Total bilirubin, elevated: Plan: resolved, recheck 10/17 remains elevated this is isolated without transaminase elevations or alkaline phosphatase elevation is likely may be more of a function of [place] syndrome No abdominal pain, nausea, vomiting, diarrhea Improvement in appetite reported, req vanilla ice cream at times/provided (3) Hypothyroidism: Plan: Synthroid resumed 25mcg 11/[address] Wang 11/24 TSH: 4.677, free T4 4.677, will continue at current dose (4) Dysphagia: Plan: 1 episode of choking in the evening of 10/05 no residual effects from it. Patient does not remember this. No additional episodes of choking have occurred for discussion with nursing Plan Dispo: continued inpatient stay until safe placement, medically stable Admission and Anticipated Discharge Date Admission Date: September 24, 2023 Subjective Patient sitting up in bed, reports no acute concerns. States she has plenty of things to read Review of Systems Review of Systems: All systems reviewed & are unremarkable except as noted in Subjective Physical Exam Physical Exam: Alert and oriented to self and place,. Sitting up in bed Cardio - RRR, no murmur Pulm - breathing unlabored, clear to auscultation Ext - moves around in the room independently. no LE edema Results & Data Results & Data Vital Signs (Past 12 Hours) Vital Signs Temp Pulse Resp BP BP Pulse Ox O2 Del Method 11/24/23 11:35 36.8 C 83 18 108/71 98 Room Air 11/24/23 08:09 36.4 C L 76 16 121/81 98 Room Air Laboratory Results TSH reviewed PG Care Time/CCT Total # of Minutes Spent Total Time Spent with Patient: Total time spent is greater than 50% in coordination of care (as documented) at patient's floor/unit and/or counseling patient: Coding Level of Care Code 82348 SUB INP/OBS CARE 2/35MIN Diagnoses Acute alteration in mental status R41.82 Total bilirubin, elevated R17 Hypothyroidism E03.9 Dysphagia R13.10
--- NOTE | 2023-11-25 11:14 | Hospitalist Progress Note ---
Date of Service November 25, 2023 Assessment & Plan (1) Acute alteration in mental status: Plan: Baseline dementia and disorientation. -acute metabolic encephalopathy on admission, resolved, secondary to UTI s/p treatment completed 5 days of parenteral Rocephin - Patient's level of confusion prevents a safe disposition home without a supervised situation. Currently awaiting placement, case management following, planning for NATASHA ramirez is brotherGordo Empiric thiamine ordered, did not check B1 to prevent agitation/additoinal lab sticks, but continued empirically Signs of depression - behavioral health liaison consulted. - Did not start medications - nonfiction book provided 11/13, pt pleased. Additional magazines 11/19 provided w/ good interaction. - Maintain wake/sleep schedules as suspect worsening her depression w/ ongoing inpatient stay. (2) Total bilirubin, elevated: Plan: resolved, recheck 10/17 remains elevated this is isolated without transaminase elevations or alkaline phosphatase elevation is likely may be more of a function of [place] syndrome No abdominal pain, nausea, vomiting, diarrhea Improvement in appetite reported, req vanilla ice cream at times/provided (3) Hypothyroidism: Plan: Synthroid resumed 25mcg 11/[address] Wang 11/24 TSH: 4.677, free T4 4.677, will continue at current dose (4) Dysphagia: Plan: 1 episode of choking in the evening of 10/05 no residual effects from it. Patient does not remember this. No additional episodes of choking have occurred for discussion with nursing Plan Dispo: continued inpatient stay until safe placement, medically stable Admission and Anticipated Discharge Date Admission Date: September 24, 2023 Subjective Patient lying in bed, states she did not sleep well last night. No acute concerns, states she has finished her books. Declines Melatonin. Review of Systems Review of Systems: All systems reviewed & are unremarkable except as noted in Subjective Physical Exam Physical Exam: Alert and oriented to self and place,. Sitting up in bed Cardio - RRR, no murmur Pulm - breathing unlabored, clear to auscultation Ext - moves around in the room independently. no LE edema Results & Data Results & Data Vital Signs (Past 12 Hours) Vital Signs Temp Pulse Resp BP Pulse Ox O2 Del Method 11/25/23 09:10 36.6 C 78 16 101/68 96 Room Air PG Care Time/CCT Total # of Minutes Spent Total Time Spent with Patient: Total time spent is greater than 50% in coordination of care (as documented) at patient's floor/unit and/or counseling patient: Coding Level of Care Code 05671 SUB INP/OBS CARE 11/19MIN Diagnoses Acute alteration in mental status R41.82 Total bilirubin, elevated R17 Hypothyroidism E03.9 Dysphagia R13.10
--- NOTE | 2023-11-26 12:09 | Hospitalist Progress Note ---
Date of Service November 26, 2023 Assessment & Plan (1) Acute alteration in mental status: Plan: Baseline dementia and disorientation. -acute metabolic encephalopathy on admission, resolved, secondary to UTI s/p treatment completed 5 days of parenteral Rocephin - Patient's level of confusion prevents a safe disposition home without a supervised situation. Currently awaiting placement, case management following, planning for NATASHA ramirez is brotherGordo Empiric thiamine ordered, did not check B1 to prevent agitation/additoinal lab sticks, but continued empirically Signs of depression - behavioral health liaison consulted. - Did not start medications - nonfiction book provided 11/13, pt pleased. Additional magazines 11/19 provided w/ good interaction. - Maintain wake/sleep schedules as suspect worsening her depression w/ ongoing inpatient stay. (2) Total bilirubin, elevated: Plan: resolved, recheck 10/17 remains elevated this is isolated without transaminase elevations or alkaline phosphatase elevation is likely may be more of a function of [place] syndrome No abdominal pain, nausea, vomiting, diarrhea Improvement in appetite reported, req vanilla ice cream at times/provided (3) Hypothyroidism: Plan: Synthroid resumed 25mcg 11/[address] Wang 11/24 TSH: 4.677, free T4 4.677, will continue at current dose (4) Dysphagia: Plan: 1 episode of choking in the evening of 10/05 no residual effects from it. Patient does not remember this. No additional episodes of choking have occurred for discussion with nursing Plan Dispo: continued inpatient stay until safe placement, medically stable Admission and Anticipated Discharge Date Admission Date: September 24, 2023 Subjective sitting up in the chair, has new pants today. Reports feeling well, is reading a magazine about birds and is very happy with this. No acute concerns Review of Systems Review of Systems: All systems reviewed & are unremarkable except as noted in Subjective Physical Exam Physical Exam: Alert and oriented to self and place,. Sitting up in the chair Cardio - RRR, no murmur Pulm - breathing unlabored, clear to auscultation Ext - moves around in the room independently. no LE edema Results & Data Results & Data Vital Signs (Past 12 Hours) Vital Signs Temp Pulse Resp BP Pulse Ox O2 Del Method 11/26/23 09:33 36.6 C 78 14 115/76 100 Room Air PG Care Time/CCT Total # of Minutes Spent Total Time Spent with Patient: Total time spent is greater than 50% in coordination of care (as documented) at patient's floor/unit and/or counseling patient: Coding Level of Care Code 71277 SUB INP/OBS CARE 11/19MIN Diagnoses Acute alteration in mental status R41.82 Total bilirubin, elevated R17 Hypothyroidism E03.9 Dysphagia R13.10
--- NOTE | 2023-11-27 11:21 | Hospitalist Progress Note ---
Date of Service November 27, 2023 Assessment & Plan (1) Acute alteration in mental status: Plan: Baseline dementia and disorientation. -acute metabolic encephalopathy on admission, resolved, secondary to UTI s/p treatment completed 5 days of parenteral Rocephin - Patient's level of confusion prevents a safe disposition home without a supervised situation. Currently awaiting placement, case management following, planning for NATASHA ramirez is brotherGordo -now trying new facilities 2/2 Empiric thiamine ordered, did not check B1 to prevent agitation/additoinal lab sticks, but continued empirically Signs of depression - behavioral health liaison consulted. - Did not start medications - nonfiction book provided 11/13, pt pleased. Additional magazines 11/19 provided w/ good interaction. - Maintain wake/sleep schedules as suspect worsening her depression w/ ongoing inpatient stay. (2) Total bilirubin, elevated: Plan: resolved, recheck 10/17 remains elevated this is isolated without transaminase elevations or alkaline phosphatase elevation is likely may be more of a function of [place] syndrome No abdominal pain, nausea, vomiting, diarrhea Improvement in appetite reported, req vanilla ice cream at times/provided (3) Hypothyroidism: Plan: Synthroid resumed 25mcg 11/[address] Wang 11/24 TSH: 4.677, free T4 4.677, will continue at current dose (4) Dysphagia: Plan: 1 episode of choking in the evening of 10/05 no residual effects from it. Patient does not remember this. No additional episodes of choking have occurred for discussion with nursing Plan Dispo: continued inpatient stay until safe placement, medically stable Admission and Anticipated Discharge Date Admission Date: September 24, 2023 Subjective sitting up in bed, reading magazine. Again asking for new reading materials Declines acute concerns Review of Systems Review of Systems: All systems reviewed & are unremarkable except as noted in Subjective Physical Exam Physical Exam: Alert and oriented to self and place,. Sitting up in bed Cardio - RRR, no murmur Pulm - breathing unlabored, clear to auscultation Ext - moves around in the room independently. no LE edema Results & Data Results & Data Vital Signs (Past 12 Hours) Vital Signs Temp Pulse Resp BP Pulse Ox O2 Del Method 11/27/23 08:44 36.7 C 80 16 110/74 98 Room Air PG Care Time/CCT Total # of Minutes Spent Total Time Spent with Patient: Total time spent is greater than 50% in coordination of care (as documented) at patient's floor/unit and/or counseling patient: Coding Level of Care Code 56417 SUB INP/OBS CARE Diagnoses Acute alteration in mental status R41.82 Total bilirubin, elevated R17 Hypothyroidism E03.9 Dysphagia R13.10
--- NOTE | 2023-11-28 13:35 | Hospitalist Progress Note ---
Date of Service November 28, 2023 Assessment & Plan (1) Acute alteration in mental status: Plan: Baseline dementia and disorientation. -acute metabolic encephalopathy on admission, resolved, secondary to UTI s/p treatment completed 5 days of parenteral Rocephin - Patient's level of confusion prevents a safe disposition home without a supervised situation. Currently awaiting placement, case management following, planning for NATASHA ramirez is brotherGordo -now trying new facilities 2/2 Empiric thiamine ordered, did not check B1 to prevent agitation/additoinal lab sticks, but continued empirically Signs of depression - behavioral health liaison consulted. - Did not start medications - nonfiction book provided 11/13, pt pleased. Additional magazines 11/19 provided w/ good interaction. - Maintain wake/sleep schedules as suspect worsening her depression w/ ongoing inpatient stay. (2) Total bilirubin, elevated: Plan: resolved, recheck 10/17 remains elevated this is isolated without transaminase elevations or alkaline phosphatase elevation is likely may be more of a function of [place] syndrome No abdominal pain, nausea, vomiting, diarrhea Improvement in appetite reported, req vanilla ice cream at times/provided (3) Hypothyroidism: Plan: Synthroid resumed 25mcg 11/[address] Wang 11/24 TSH: 4.677, free T4 4.677, will continue at current dose (4) Dysphagia: Plan: 1 episode of choking in the evening of 10/05 no residual effects from it. Patient does not remember this. No additional episodes of choking have occurred for discussion with nursing Plan Dispo: continued inpatient stay until safe placement, medically stable Admission and Anticipated Discharge Date Admission Date: September 24, 2023 Subjective Patient seen sitting on the side of bed eating lunch, very happy because she was given 3 different types of ice cream for her birthday. No acute concerns. Review of Systems Review of Systems: All systems reviewed & are unremarkable except as noted in Subjective Physical Exam Physical Exam: Alert and oriented to self and place,. Sitting up in bed Cardio - RRR, no murmur Pulm - breathing unlabored, clear to auscultation Ext - moves around in the room independently. no LE edema Results & Data Results & Data Vital Signs (Past 12 Hours) Vital Signs Temp Pulse Resp BP Pulse Ox O2 Del Method 11/28/23 08:27 36.8 C 89 16 113/75 96 Room Air PG Care Time/CCT Total # of Minutes Spent Total Time Spent with Patient: Total time spent is greater than 50% in coordination of care (as documented) at patient's floor/unit and/or counseling patient: Coding Level of Care Code 98257 SUB INP/OBS CARE 1/25MIN Diagnoses Acute alteration in mental status R41.82 Total bilirubin, elevated R17 Hypothyroidism E03.9 Dysphagia R13.10
--- NOTE | 2023-11-29 11:27 | Hospitalist Progress Note ---
Date of Service November 29, 2023 Assessment & Plan (1) Acute alteration in mental status: Plan: Baseline dementia and disorientation. -acute metabolic encephalopathy on admission, resolved, secondary to UTI s/p treatment completed 5 days of parenteral Rocephin - Patient's level of confusion prevents a safe disposition home without a supervised situation. Currently awaiting placement, case management following, planning for NATASHA ramirez is brotherGordo -now trying new facilities 2/2 Empiric thiamine ordered, did not check B1 to prevent agitation/additoinal lab sticks, but continued empirically Signs of depression - behavioral health liaison consulted. - Did not start medications - nonfiction book provided 11/13, pt pleased. Additional magazines 11/19 provided w/ good interaction. - Maintain wake/sleep schedules as suspect worsening her depression w/ ongoing inpatient stay. (2) Total bilirubin, elevated: Plan: resolved, recheck 10/17 remains elevated this is isolated without transaminase elevations or alkaline phosphatase elevation is likely may be more of a function of [place] syndrome No abdominal pain, nausea, vomiting, diarrhea Improvement in appetite reported, req vanilla ice cream at times/provided (3) Hypothyroidism: Plan: Synthroid resumed 25mcg 11/[address] Wang 11/24 TSH: 4.677, free T4 4.677, will continue at current dose (4) Dysphagia: Plan: 1 episode of choking in the evening of 10/05 no residual effects from it. Patient does not remember this. No additional episodes of choking have occurred for discussion with nursing Plan Dispo: continued inpatient stay until safe placement, medically stable Admission and Anticipated Discharge Date Admission Date: September 24, 2023 Subjective sitting up in bed, reading a magazine. No acute concerns Review of Systems Review of Systems: All systems reviewed & are unremarkable except as noted in HPI & below Physical Exam Physical Exam: Alert and oriented to self and place,. Sitting up in bed Cardio - RRR, no murmur Pulm - breathing unlabored, clear to auscultation Ext - moves around in the room independently. no LE edema Results & Data Results & Data Vital Signs (Past 12 Hours) Vital Signs Temp Pulse Resp BP Pulse Ox O2 Del Method 11/29/23 09:08 36.8 C 85 16 103/69 100 Room Air PG Care Time/CCT Total # of Minutes Spent Total Time Spent with Patient: Total time spent is greater than 50% in coordination of care (as documented) at patient's floor/unit and/or counseling patient: Coding Level of Care Code 54570 SUB INP/OBS CARE 11/19MIN Diagnoses Acute alteration in mental status R41.82 Total bilirubin, elevated R17 Hypothyroidism E03.9 Dysphagia R13.10
--- NOTE | 2023-11-30 13:16 | Hospitalist Progress Note ---
Date of Service November 30, 2023 Assessment & Plan (1) Acute alteration in mental status: Plan: Baseline dementia and disorientation. -acute metabolic encephalopathy on admission, resolved, secondary to UTI s/p treatment completed 5 days of parenteral Rocephin - Patient's level of confusion prevents a safe disposition home without a supervised situation. Currently awaiting placement, case management following, planning for NATASHA ramirez is brotherGordo -now trying new facilities 11/27 - plan for d/c to [facility] 12/01 Empiric thiamine ordered, did not check B1 to prevent agitation/additoinal lab sticks, but continued empirically Signs of depression - behavioral health liaison consulted. - Did not start medications - nonfiction book provided 11/13, pt pleased. Additional magazines 11/19 provided w/ good interaction. - Maintain wake/sleep schedules as suspect worsening her depression w/ ongoing inpatient stay. (2) Total bilirubin, elevated: Plan: resolved, recheck 10/17 remains elevated this is isolated without transaminase elevations or alkaline phosphatase elevation is likely may be more of a function of [employer] syndrome No abdominal pain, nausea, vomiting, diarrhea Improvement in appetite reported, req vanilla ice cream at times/provided (3) Hypothyroidism: Plan: Synthroid resumed 25mcg 11/[address] Wang 11/24 TSH: 4.677, free T4 4.677, will continue at current dose (4) Dysphagia: Plan: 1 episode of choking in the evening of 10/05 no residual effects from it. Patient does not remember this. No additional episodes of choking have occurred for discussion with nursing Plan Dispo: continued inpatient stay until safe placement, medically stable Hopeful discharge to [facility] 12/01 Admission and Anticipated Discharge Date Admission Date: September 24, 2023 Subjective patient just waking up when I saw her this morning. States she ate breakfast went back to bed. No acute concerns Review of Systems Review of Systems: All systems reviewed & are unremarkable except as noted in HPI & below Physical Exam Physical Exam: Alert and oriented to self and place,. Sitting up in bed Cardio - RRR, no murmur Pulm - breathing unlabored, clear to auscultation Ext - moves around in the room independently. no LE edema Results & Data Results & Data Vital Signs (Past 12 Hours) Vital Signs Temp Pulse Resp BP Pulse Ox O2 Del Method 11/30/23 07:30 36.8 C 75 16 125/77 96 Room Air PG Care Time/CCT Total # of Minutes Spent Total Time Spent with Patient: Total time spent is greater than 50% in coordination of care (as documented) at patient's floor/unit and/or counseling patient: Coding Level of Care Code 53480 SUB INP/OBS CARE 11/19MIN Diagnoses Acute alteration in mental status R41.82 Total bilirubin, elevated R17 Hypothyroidism E03.9 Dysphagia R13.10
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
== END 2023-12-01 13:18 | DRG 689 ==
LOC: ED 11:49 → 3N 16:13 → SUATTDRO 16:13 → 3N 20:48